=== PATIENT | female | born 1935 | race Caucasian/White ===

== ENCOUNTER 2023-09-28 19:58 | Inpatient (IN) | payer MEDICARE, SELFPAY ==
[2023-09-28 13:35] VITALS: BP 126/85
--- NOTE | 2023-09-28 14:10 | ED.GENMED ---
History of Present Illness
<Cristiano Lane Jr., PA-C - Last Filed: 09/29/23 15:53>
General
Chief Complaint: Fall
Source: patient, ambulance crew and care home
Exam Limitations: dementia
Time Seen by Provider: 09/28/23 13:53
Nursing documentation reviewed up to this point in time: agreed with
Travel History
Have you had any contact with someone who has COVID-19?: No
Do you have any symptoms of coronavirus? Fever > 100 degrees, chills, cough, shortness of breath, sore throat, loss of taste or smell, muscle aches, or headache?: No
History of Present Illness
History of Present Illness:
87-year-old female past medical history of dementia, CHF A-fib currently on Eliquis presenting to the emergency department today after a fall last night claims that she falls a lot she does not remember the fall specifically has pain mainly to her
low back and left rib. Has any chest pain shortness of breath nausea vomiting numbness weakness.
Review of Systems
<Cristiano Lane Jr., PA-C - Last Filed: 09/29/23 15:53>
Review of Systems
Allergies reviewed?: Yes
All Other Systems: ROS reviewed and negative except as documented in HPI and ROS
Phy Exam
<Cristiano Lane Jr., PA-C - Last Filed: 09/29/23 15:53>
Physical Exam
Physical Exam:
GENERAL: Alert , in no apparent distress
EYE: pupils equal and reactive
NECK: Supple, no significant adenopathy.
ENT: o/p clr, mmm.
CARDIAC: Tender to palpation to the left lateral ribs. Also some tenderness to the low back regular rate and rhythm .
LUNGS: Clear breath sounds bilaterally, no acute respiratory distress, no wheezes/rales/rhonchi
ABDOMEN: Soft, without focal tenderness, no r/g, no cvat
NEUROLOGICAL: Alert and oriented, no focal neuro deficits
SKIN: Warm and dry, skin intact.
MUSCULOSKELETAL: Tenderness of the low back no overlying skin changes no bruising no edema, well perfused.
PSYCH: Normal and appropriate interaction.
Course
<Cristiano Lane Jr., JACKI - Last Filed: 09/29/23 15:53>
Orders/Labs/Results
Orders:
Orders
09/28/23 14:03
CR Ribs-left 3 Vw W/pa Chest Urgent
Comment:
Reason For Exam: left rib pain after fall
Hip, Left 2-3 Views [CR Hip - LT w/wo Pel 2-3 Vw*] Urgent
Comment:
Reason For Exam: fall hip pelvis pain
Include a pelvis x-ray?: Yes
Lumbar Spine, 2 or 3 View [CR Lumbar Spine 2 Or 3 Views] Urgent
Comment:
Reason For Exam: low back christiano nafter fall
Sacrum/Coccyx 2 View CR [CR Sacrum/coccyx Min 2 View] Urgent
Comment:
Reason For Exam: back pain after fall
09/28/23 14:14
CT Head W/o Iv Contrast Urgent
Comment:
Reason For Exam: fall ystedaay
09/28/23 14:30
Acetaminophen [Tylenol] 650 mg PO NOW STA
09/28/23 15:18
BMP [Basic Metabolic Panel] Urgent
CBC/With Diff [Complete Blood Count/With Diff] Urgent
09/28/23 15:52
0.9% Sodium Chloride 250 ml [Nss] 250 ml IV BOLUS
09/28/23 15:53
Chest/Abd/Pelvis wo Contrast CT [CT Chest/abd/pel Wo Iv Cont] Urgent
Comment:
Reason For Exam: TRAUMA eval
09/28/23 16:08
Incentive Spirometry [Rx Incentive Spirometry] [RESP] Urgent
Frequency: q1h while awake
09/28/23 17:16
Urinalysis Reflex To Culture Urgent
Date Specimen was Collected: 09/28/23
Time Specimen was Collected: 17:01
Urine Microscopic Reflex Cult Urgent
Urine Culture Urgent
SAMANTHA Source: U
Specimen Description:
Date Specimen was Collected: 09/28/23
Time Specimen was Collected: 17:01
09/28/23 18:11
0.9% Sodium Chloride 500 ml [Nss] 500 ml IV BOLUS
09/28/23 19:22
Admit/Transfer Patient As Directed
Co-Sign Provider:
Level of Care: Inpatient admission
Assign to:: Medical/Surgical
Physician / Group: [facility]
Diagnosis: Rib Fracture, UTI
Reason for Hospitalization: IVFs, IV abx
Expected length of stay greater than two midnights?: Yes
ELOS- Estimated Length of Stay in days: 3
I certify the patient meets the requirements for IP care: Yes
09/28/23 19:24
Code Status As Directed
Resuscitation Status: Do not resuscitate
Reached after discussion with pt or family/Healthcare POA: Yes
DNR Bracelet Application ONCE
09/28/23 22:00
Famotidine [Pepcid] 20 mg PO Q48H
09/28/23 22:58
0.9% Sodium Chloride 500 ml [Nss] 500 ml IV 60 mls/hr
Acetaminophen [Tylenol] 1,000 mg PO TID
Doxepin [Sinequan] 25 mg PO HS
Oxycodone [Roxicodone] 2.5 mg PO Q4HPRN PRN
Oxycodone [Roxicodone] 5 mg PO Q4HPRN PRN
09/28/23 22:58
Echo 2D MMode Color/Doppler Routine
Reason for Study: cardiac murmur
Activity As Directed
Activity Level: Out of Bed-Early Mobility
With Assistance
I&O [Intake/ Output] As Directed
Frequency: q12h
Vital Signs As Directed
Frequency: Per unit guidelines
Weight As Directed
Frequency: Daily
Speech Therapy Eval & Treat Routine
09/28/23 23:00
Desipramine [Norpramin] 100 mg PO HS
09/28/23 23:15
Apixaban [Eliquis] 2.5 mg PO BID
09/29/23 00:00
Piperacillin/Tazo 2.25 Gram [Zosyn] 2.25 grams in 50 ml IV Q8H
09/29/23 Breakfast
IDDSI 5 - Minced & Moist
At Your Request: Non-Participating
Dysphagia Diet: Sodium, 2 Gram
Levothyroxine [Synthroid] 25 mcg PO DAILY @ 0600
09/29/23 07:10
Basic Metabolic Panel IN AM
Complete Blood Count/No Diff IN AM
09/29/23 08:00
Atorvastatin [Lipitor] 10 mg PO DAILY
Diltiazem Extended Release [Cardizem Cd] 120 mg PO DAILY
Lidocaine [Lidocaine 4% Patch] 1 patch TOPICAL DAILY
Memantine HCl [Namenda] 5 mg PO DAILY
09/29/23 12:00
Digoxin [Lanoxin] 125 mcg PO NOON
Abnormal Lab Results
09/28/23 09/28/23
15:18 17:16
WBC 13.4 H 10^3/uL
(4.8-10.8)
RDW 15.9 H %
(11.5-14.5)
MPV 11.3 H fL
(7.4-10.4)
Abs Immat Gran (auto) 0.1 H 10^3/uL
(0-0.05)
Absolute Neuts (auto) 10.5 H 10^3/uL
(1.4-6.5)
Absolute Monos (auto) 1.4 H 10^3/uL
(0.1-0.6)
Immature Gran % 0.6 H %
(0-0.5)
Neutrophils % 78.5 H %
(42.2-75.2)
Lymphocytes % 10.0 L %
(20.5-51.1)
Monocytes % 10.6 H %
(1.7-9.3)
BUN 51 H mg/dl
(7-17)
Creatinine 1.8 H mg/dL
(0.6-1.0)
Glucose 112 H mg/dl
(70-99)
Leukocyte Esterase Rfl Trace A
(Negative)
Urine WBC (Reflex) 16-20 A /HPF
(0-5)
Urine Bacteria (Reflex) Moderate A
(Negative)
09/28/23 15:18
09/28/23 15:18
Vital Signs
Initial and Last Documented VS:
Initial Vital Signs
Temp Pulse Resp BP Pulse Ox
98.2 F 88 18 126/85 98
09/28/23 13:35 09/28/23 13:35 09/28/23 13:35 09/28/23 13:35 09/28/23 13:35
Last Documented Vital Signs
Temp Pulse Resp BP Pulse Ox
98.7 F 48 18 152/72 97
09/29/23 07:20 09/29/23 12:48 09/29/23 07:20 09/29/23 07:20 09/29/23 07:20
<Hanna Blackmon, CHIEF CREW SCHEDULER - Last Filed: 09/28/23 20:07>
Orders/Labs/Results
Orders:
Orders
09/28/23 14:03
CR Ribs-left 3 Vw W/pa Chest Urgent
Comment:
Reason For Exam: left rib pain after fall
Hip, Left 2-3 Views [CR Hip - LT w/wo Pel 2-3 Vw*] Urgent
Comment:
Reason For Exam: fall hip pelvis pain
Include a pelvis x-ray?: Yes
Lumbar Spine, 2 or 3 View [CR Lumbar Spine 2 Or 3 Views] Urgent
Comment:
Reason For Exam: low back christiano nafter fall
Sacrum/Coccyx 2 View CR [CR Sacrum/coccyx Min 2 View] Urgent
Comment:
Reason For Exam: back pain after fall
09/28/23 14:14
CT Head W/o Iv Contrast Urgent
Comment:
Reason For Exam: fall ystedaay
09/28/23 14:30
Acetaminophen [Tylenol] 650 mg PO NOW STA
09/28/23 15:18
BMP [Basic Metabolic Panel] Urgent
CBC/With Diff [Complete Blood Count/With Diff] Urgent
09/28/23 15:52
0.9% Sodium Chloride 250 ml [Nss] 250 ml IV BOLUS
09/28/23 15:53
Chest/Abd/Pelvis wo Contrast CT [CT Chest/abd/pel Wo Iv Cont] Urgent
Comment:
Reason For Exam: TRAUMA eval
09/28/23 16:08
Incentive Spirometry [Rx Incentive Spirometry] [RESP] Urgent
Frequency: q1h while awake
09/28/23 17:16
Urinalysis Reflex To Culture Urgent
Date Specimen was Collected: 09/28/23
Time Specimen was Collected: 17:01
Urine Microscopic Reflex Cult Urgent
Urine Culture Urgent
SAMANTHA Source: U
Specimen Description:
Date Specimen was Collected: 09/28/23
Time Specimen was Collected: 17:01
09/28/23 18:11
0.9% Sodium Chloride 500 ml [Nss] 500 ml IV BOLUS
09/28/23 19:22
Admit/Transfer Patient As Directed
Co-Sign Provider:
Level of Care: Inpatient admission
Assign to:: Medical/Surgical
Physician / Group: Dese[facility]
Diagnosis: Rib Fracture, UTI
Reason for Hospitalization: IVFs, IV abx
Expected length of stay greater than two midnights?: Yes
ELOS- Estimated Length of Stay in days: 3
I certify the patient meets the requirements for IP care: Yes
09/28/23 19:24
Code Status As Directed
Resuscitation Status: Do not resuscitate
Reached after discussion with pt or family/Healthcare POA: Yes
DNR Bracelet Application ONCE
09/28/23 22:00
Famotidine [Pepcid] 20 mg PO Q48H
09/28/23 22:58
0.9% Sodium Chloride 500 ml [Nss] 500 ml IV 60 mls/hr
Acetaminophen [Tylenol] 1,000 mg PO TID
Doxepin [Sinequan] 25 mg PO HS
Oxycodone [Roxicodone] 2.5 mg PO Q4HPRN PRN
Oxycodone [Roxicodone] 5 mg PO Q4HPRN PRN
09/28/23 22:58
Echo 2D MMode Color/Doppler Routine
Reason for Study: cardiac murmur
Activity As Directed
Activity Level: Out of Bed-Early Mobility
With Assistance
I&O [Intake/ Output] As Directed
Frequency: q12h
Vital Signs As Directed
Frequency: Per unit guidelines
Weight As Directed
Frequency: Daily
Speech Therapy Eval & Treat Routine
09/28/23 23:00
Desipramine [Norpramin] 100 mg PO HS
09/28/23 23:15
Apixaban [Eliquis] 2.5 mg PO BID
09/29/23 00:00
Piperacillin/Tazo 2.25 Gram [Zosyn] 2.25 grams in 50 ml IV Q8H
09/29/23 Breakfast
IDDSI 5 - Minced & Moist
At Your Request: Non-Participating
Dysphagia Diet: Sodium, 2 Gram
Levothyroxine [Synthroid] 25 mcg PO DAILY @ 0600
09/29/23 07:10
Basic Metabolic Panel IN AM
Complete Blood Count/No Diff IN AM
09/29/23 08:00
Atorvastatin [Lipitor] 10 mg PO DAILY
Diltiazem Extended Release [Cardizem Cd] 120 mg PO DAILY
Lidocaine [Lidocaine 4% Patch] 1 patch TOPICAL DAILY
Memantine HCl [Namenda] 5 mg PO DAILY
09/29/23 12:00
Digoxin [Lanoxin] 125 mcg PO NOON
Abnormal Lab Results
09/28/23 09/28/23
15:18 17:16
WBC 13.4 H 10^3/uL
(4.8-10.8)
RDW 15.9 H %
(11.5-14.5)
MPV 11.3 H fL
(7.4-10.4)
Abs Immat Gran (auto) 0.1 H 10^3/uL
(0-0.05)
Absolute Neuts (auto) 10.5 H 10^3/uL
(1.4-6.5)
Absolute Monos (auto) 1.4 H 10^3/uL
(0.1-0.6)
Immature Gran % 0.6 H %
(0-0.5)
Neutrophils % 78.5 H %
(42.2-75.2)
Lymphocytes % 10.0 L %
(20.5-51.1)
Monocytes % 10.6 H %
(1.7-9.3)
BUN 51 H mg/dl
(7-17)
Creatinine 1.8 H mg/dL
(0.6-1.0)
Glucose 112 H mg/dl
(70-99)
Leukocyte Esterase Rfl Trace A
(Negative)
Urine WBC (Reflex) 16-20 A /HPF
(0-5)
Urine Bacteria (Reflex) Moderate A
(Negative)
09/28/23 15:18
09/28/23 15:18
Vital Signs
Initial and Last Documented VS:
Initial Vital Signs
Temp Pulse Resp BP Pulse Ox
98.2 F 88 18 126/85 98
09/28/23 13:35 09/28/23 13:35 09/28/23 13:35 09/28/23 13:35 09/28/23 13:35
Last Documented Vital Signs
Temp Pulse Resp BP Pulse Ox
98.7 F 48 18 152/72 97
09/29/23 07:20 09/29/23 12:48 09/29/23 07:20 09/29/23 07:20 09/29/23 07:20
<Cristiano Lane Jr., PA-C - Last Filed: 09/29/23 15:53>
MDM/Problems Addressed
MDM/Problems Addressed:
87-year-old female presenting to the emergency department after what sounds to be a ground-level fall yesterday though she has minimal memory of this. Discomfort mainly to the low back and buttock region. Additionally tenderness to the left
lateral lower ribs. X-rays ordered of the areas. She has been able to walk denies any head trauma no visible evidence of injury to the head or neck. No neck pain. Normal neurologic evaluation. Patient is on Eliquis poor historian CT scan
ordered of the head.
X-ray showing ninth and 10th rib fractures. Also age-indeterminate compression fracture lumbar spine. Concern the patient is on Eliquis and does have discomfort overlying the abdomen and some mild discomfort to the abdomen when palpating CT scan
was performed. Initial Noncon scan was performed concerning the patient's low GFR. Otherwise plan to admit for monitoring.
<Hanna Blackmon NP - Last Filed: 09/28/23 20:07>
MDM/Problems Addressed
MDM/Problems Addressed:
87-year-old female presenting to the emergency department after what sounds to be a ground-level fall yesterday though she has minimal memory of this. Discomfort mainly to the low back and buttock region. Additionally tenderness to the left
lateral lower ribs. X-rays ordered of the areas. She has been able to walk denies any head trauma no visible evidence of injury to the head or neck. No neck pain. Normal neurologic evaluation. Patient is on Eliquis poor historian CT scan
ordered of the head.
X-ray showing ninth and 10th rib fractures. Also age-indeterminate compression fracture lumbar spine. Concern the patient is on Eliquis and does have discomfort overlying the abdomen and some mild discomfort to the abdomen when palpating CT scan
was performed. Initial Noncon scan was performed concerning the patient's low GFR. Otherwise plan to admit for monitoring.
6:[address] confirming rib fx's. No other acute abnormality although limited with no contrast.
U/A WBC 16-20 many bacteria urine culture pending.
Hospitalist notified of admission.
DX: Fall, dehydration, acute kidney insufficiency, two rib fractures, UTI
<Hanna Blackmon NP - Last Filed: 09/28/23 20:07>
*Critical Care Note
Total Time (30-74mins, 75-104mins- exclusive of procedures): Not Applicable
ED Attending Note
<Cristiano Lane Jr., PA-C - Last Filed: 09/29/23 15:53>
-
Portions of this chart may have been created with voice recognition software.� Occasional wrong word or��sound alike� substitutions may have occurred due to the inherent limitations of voice recognition software.
Discharge Plan
Departure
Patient Disposition: Admit
Date of Disposition: 09/28/23
Time of Disposition: 18:08
Presentation/result/management discussed w/ accepting MD/DO: Hospitalist
Condition: Fair
Discharge Problem:
Fall, Acute UTI, Acute dehydration, Acute renal insufficiency, Fracture of ribs, two
Interventions
Interventions:
*Risk Screen - Suicide Last Done: 09/28/23 14:59
*General Assessment Last Done: 09/28/23 19:10
*Neglect/Abuse Screening Last Done: 09/28/23 14:59
ED- Fall Risk Assessment Last Done: 09/28/23 15:29
*ED COVID-19 Vaccine History Last Done: 09/28/23 19:10
*Nursing Disposition Last Done: 09/28/23 21:55
ED-Musculoskeletal Assessment Last Done: 09/28/23 15:29
ED- Neurological Assessment Last Done: 09/28/23 14:59
ED-Skin Assessment Last Done: 09/28/23 14:59
Discharge Date and Time
Discharge Date/Time: 09/28/23 21:55
[2023-09-28] MEDS: TYLENOL 650 MG PO (14:55)
[2023-09-28 15:25] LABS: % Basophils 0.3 % (0-2); % Immature Granulocytes 0.6 % (0-0.5); % Monocytes 10.6 % (1.7-9.3); % Neutrophils 78.5 % (42.2-75.2); Absolute Immature Granulocytes 0.1 10^3/uL (0-0.05); Absolute Lymphocytes 1.3 10^3/uL (1.2-3.4); Absolute Monocytes 1.4 10^3/uL (0.1-0.6); Absolute Neutrophils 10.5 10^3/uL (1.4-6.5); Hematocrit 38.8 % (37.0-47.0); Hemoglobin 12.8 g/dL (12.0-16.0); Mean Corpuscular Hgb 29.8 pg (27.0-31.0); Mean Corpuscular Volume 90.4 fL (81.0-99.0); Mean Platelet Volume 11.3 fL (7.4-10.4); Nucleated Red Blood Cells % 0 %; Platelet Count 216 10^3/uL (130-400); Red Blood Cell Count 4.29 10^6/uL (4.20-5.40); Red Cell Dist. Width 15.9 % (11.5-14.5); White Blood Cell Count 13.4 10^3/uL (4.8-10.8)
[2023-09-28 15:47] LABS: Blood Urea Nitrogen 51 mg/dl (7-17); Calcium 8.5 mg/dl (8.4-10.2); Carbon Dioxide 23 mmol/L (22-30); Chloride 105 mmol/L (98-107); Glucose 112 mg/dl (70-99); Sodium 136 mmol/L (135-145)
[2023-09-28 17:25] LABS: Urine Albumin Negative (Neg - Trace); Urine Bilirubin Negative (Negative); Urine Character Clear (Clear); Urine Color Yellow; Urine Glucose Negative (Negative); Urine Ketone Negative (Negative); Urine Leukocyte Trace (Negative); Urine Nitrite Negative (Negative); Urine Occult Blood Negative (Negative); Urine Urobilinogen Negative (Neg - 1+)
[2023-09-28 18:03] LABS: Urine Bacteria Moderate (Negative); Urine Squamous Cell 26-30 /LPF (Few); Urine White Cell 16-20 /HPF (0-5)
[2023-09-28] MEDS: NSS 500 IV ×2 (18:14→23:57)
--- NOTE | 2023-09-28 19:15 | W.PN.UPDATE ---
Update Note
Progress Note Update
This is an addendum to the H&P written PA Laura Gaines on 09/28/2023.
87-year-old female past medical history of dementia, CHF, atrial fibrillation on Eliquis presenting after a fall last night. She does not have memory of the fall. She complains of pain in her lower back and left rib. She has some shortness of
breath. She is complaining of abdominal pain and nausea. Denies any urinary symptoms or diarrhea.
Patient is AAOx1. Likely baseline mental status. Labs show leukocytosis, BARB with creatinine 1.8, pyuria. CT chest and abdomen pelvis shows displaced left posterior 10th rib and 11th rib fractures. There is left lower lobe consolidation small
left pleural effusion.
Pain control for rib fracture. Gentle IV fluids for BARB. Leukocytosis could be due to UTI and or aspiration pneumonia. Await urine culture. Zosyn. Check speech and swallow evaluation.
--- NOTE | 2023-09-28 19:30 | HPS.HSE ---
Family Physician
-
Family Physician: Zack Palomo, DO
Chief Complaint
-
Left flank/side pain
History of Present Illness
Patient is an 87 y/o female past medical history of dementia, heart failure and atrial fibrillation who presents with left flank/side pain following a fall. Patient is unable to provide any additional history due to her dementia. She is unaware of
why she was sent to the emergency department. Work-up in the emergency department revealed two left rib fractures. Patient dose complain of left rib pain when taking a deep breath.
Medical History
Past Medical History
Past Medical History: Reports Other
Additional Past Medical History:
Chronic Heart Failure
Paroxysmal Atrial Fibrillation
Hyperlipidemia
Dysphagia
Dementia
Anxiety/Depression
Hypothyroidism
GERD
Past Surgical History: Reports Other (Unknown)
Social History
Unable to obtain full social history at this time due to: Dementia
Family History
Family History: Unable to Obtain
Allergies / Home Medications
Allergies reflects when Allergies were last updated in [employer].
Home Medications with original date entered in [employer]
Allergy/Medication List:
Allergies
Allergy/AdvReac Type Severity Reaction Status Date / Time
aspirin Allergy Unknown Verified 09/28/23 13:38
codeine Allergy Unknown Verified 09/28/23 13:38
metronidazole Allergy Unknown Verified 09/28/23 13:38
sulfasalazine Allergy Unknown Verified 09/28/23 13:38
Home Medications
acetaminophen 325 mg tablet 650 mg PO Q6H PRN mild/fever 09/28/23
apixaban 5 mg tablet 5 mg PO BID 09/28/23
atorvastatin 10 mg tablet 10 mg PO DAILY 09/28/23
bisacodyl 10 mg rectal suppository 10 mg KS DAILY PRN constipation 09/28/23
desipramine 100 mg tablet 100 mg PO HS 09/28/23
digoxin 125 mcg (0.125 mg) tablet 125 mcg PO DAILY 09/28/23
diltiazem HCl 120 mg tablet,extended release 24 hr 120 mg PO DAILY 09/28/23
doxepin 25 mg capsule 25 mg PO HS 09/28/23
famotidine 20 mg tablet 20 mg PO BID 09/28/23
furosemide 40 mg tablet 40 mg PO BID 09/28/23
levothyroxine 25 mcg tablet 25 mcg PO DAILY 09/28/23
magnesium hydroxide 400 mg/5 mL oral suspension (Milk of Magnesia) 30 ml PO DAILY PRN consitiptation 09/28/23
memantine 5 mg tablet 5 mg PO DAILY 09/28/23
potassium chloride 15 mEq tablet,extended release(part/cryst) 15 meq PO DAILY 09/28/23
potassium chloride 20 mEq tablet,extended release(part/cryst) 20 meq PO DAILY 09/28/23
sodium phosphates 19 gram-7 gram/118 mL enema (Fleet Enema) 118 ml KS DAILYPRN PRN constipation 09/28/23
Review of Systems
-
Unable to obtain full review of systems at this time due to: Dementia
Physical Exam
Vital Signs
Vital Signs
Temp Pulse Resp BP Pulse Ox
98.2 F 88 18 126/85 98
09/28/23 13:35 09/28/23 13:35 09/28/23 13:35 09/28/23 13:35 09/28/23 13:35
Physical Exam
General: Comfortable and Conversant
HEENT: NormoCephalic, Anicteric and Atraumatic
Respiratory: Clear and Non Labored Respirations
Cardiac: S1/S2, Regular Rhythm and Murmur (3/6 systolic murmur heard at right upper sternal border)
GI: Soft and Non Tender
Musculoskeletal: No Clubbing and No Cyanosis
Skin: Warm and Dry
Neuro: Awake, Alert and Nonfocal/grossly intact; No Oriented (Patient unable to tell me where she is, or the correct year)
Laboratory Results
-
09/28/23 15:18
09/28/23 15:18
Data Reviewed
-
Diagnostic Radiology: Report Reviewed by me
CT Scan: Report Reviewed by me
Lab Data: Labs Reviewed by me
Impression/Plan
-
Left Rib Fractures
-Add Lidocaine Patch
-Continue Tylenol 1000mg TID
-Add oxycodone prn for moderate/severe pain
Leukocytosis, possible aspiration pneumonia vs UTI
-Await urine culture
-Continue Zosyn
Elevated Creatinine, unknown baseline
-Hold Lasix
-Give small amount of IVFs overnight
-Recheck creatinine in AM
Dysphagia
-Consult Speech
-Continue Minced/Moist Diet with thin liquids per [place] paperwork
Chronic Heart Failure, unknown type
-Patient with cardiac murmur on exam, suspect aortic stenosis
-Check Echo
-Lasix on hold
-Monitor Is&Os and Daily Weights
Paroxysmal Atrial Fibrillation
-Continue apixaban at decreased dose based on renal function
-Continue digoxin and diltiazem
Hyperlipidemia
-Continue atorvastatin
Dementia
-Monitor for mood/behavior changes during hospitalization
-Continue memantine
Anxiety/Depression
-Continue desipramine and doxepin
Hypothyroidism
-Continue levothyroxine
GERD
-Continue famotidine
DVT proph: Eliquis
Code Status: DNR/DNI per [facility] paperwork
[2023-09-28 20:03] VITALS: BP 135/88
[2023-09-28 22:05] VITALS: BP 151/80
--- NOTE | 2023-09-28 22:15 | PTCARENOTE ---
Patient arrived from ED via stretcher, pulled to bed from stretcher with assist of 2 person. Patient confused, hx dementia - unable to provide admission information, history, etc. Patient with difficulty stating her own birthday. Bed alarm placed
and maintained. IVFs initiated, IV abx maintained per MD orders. Patient remains confused and appears to be anxious at times - yelling out frequently following admission. Call ellis within reach. Will continue to monitor.
[2023-09-28 23:00] VITALS: BP 143/70
[2023-09-28] MEDS: FLUSH (NSS) 1 FLUSH IV (23:58)
[2023-09-28] MEDS: NORPRAMIN 100 MG PO (23:58)
[2023-09-28] MEDS: SINEQUAN 25 MG PO (23:58)
[2023-09-28] MEDS: TYLENOL 1000 MG PO (23:58)
[2023-09-28] MEDS: ELIQUIS 2.5 MG PO (23:58)
[2023-09-28] MEDS: PEPCID 20 MG PO (23:58)
[2023-09-29] MEDS: ZOSYN 50 IV ×4 (00:50→23:01)
[2023-09-29] MEDS: SYNTHROID 25 MCG PO (05:04)
[2023-09-29 06:00] VITALS: BMI 28.2
--- NOTE | 2023-09-29 06:45 | PTCARENOTE ---
Patient unable to void throughout shift, c/o pain and discomfort. Bladder distended and firm. Bladder scanned for 1003mls urine, patient encouraged to void and only able to void drops. Bladder scanned again for PVR, still showing 1003mls of urine.
KEEGAN Carbajal notified, orders placed for bladder scan/straight cath and patient straight cathed for 950mls urine. Per MIXED ANIMAL VETERINARIAN -- will place mullen catheter if patient has multiple episodes of retaining. Patient verbalizes relief, abdomen soft to
palpation at this time. Call ellis within reach, will monitor.
[2023-09-29 07:20] VITALS: BP 152/72
[2023-09-29 07:46] LABS: Hematocrit 38.5 % (37.0-47.0); Hemoglobin 12.8 g/dL (12.0-16.0); Mean Corp Hgb Conc. 33.2 g/dL (33.0-37.0); Mean Corpuscular Volume 90.2 fL (81.0-99.0); Mean Platelet Volume 11.6 fL (7.4-10.4); Platelet Count 202 10^3/uL (130-400); Red Blood Cell Count 4.27 10^6/uL (4.20-5.40); Red Cell Dist. Width 15.9 % (11.5-14.5); White Blood Cell Count 10.9 10^3/uL (4.8-10.8)
[2023-09-29 08:34] LABS: Blood Urea Nitrogen 39 mg/dl (7-17); Calcium 8.5 mg/dl (8.4-10.2); Carbon Dioxide 25 mmol/L (22-30); Chloride 107 mmol/L (98-107); Estimated Creatinine Clearance 23 ml/min; Glucose 93 mg/dl (70-99); Potassium 3.5 mmol/L (3.5-5.1); Sodium 140 mmol/L (135-145); eGFR 36.64
[2023-09-29] MEDS: CARDIZEM CD 120 MG PO (08:37)
[2023-09-29] MEDS: LIPITOR 10 MG PO (08:37)
[2023-09-29] MEDS: ELIQUIS 2.5 MG PO ×2 (08:38→21:22)
[2023-09-29] MEDS: TYLENOL 1000 MG PO ×3 (08:38→21:22)
[2023-09-29] MEDS: LIDOCAINE 4% PATCH 1 PATCH TOPICAL (08:38)
[2023-09-29] MEDS: NAMENDA 5 MG PO (08:38)
[2023-09-29 10:45] VITALS: BP 120/53; BP 124/70; PULSE 69; O2SAT 95
--- NOTE | 2023-09-29 12:26 | PTOTSP ---
Speech Language Pathology
87F with PMH significant for dementia, CHF, dysphagia, hypothyroidism, and GERD admitted for left rib fx s/p fall and possible UTI. CT chest concerning for possible aspiration. Presents this date with a grossly functional oropharyngeal swallow.
Cannot r/o silent aspiration at bedside. Recommend modified diet w/ PACKAGING MECHANIC service to follow up.
Recommend:
1. Soft and bite sized (IDDSI 6), thin liquid (IDDSI 0)
2. Medications as tolerated
3. Strategies: PARTIAL supervision, upright during meals, upright after meals for 30 minutes, only feed when awake and alert, ensure clearance of oral cavity post-PO
4. Video swallow study premature at this time; consider if s/s of aspiration persist
5. PACKAGING MECHANIC service will f/u to assess diet level tolerance and provide dysphagia treatment as needed.
--- NOTE | 2023-09-29 12:42 | W.PN.HOSP.TC ---
Today's Communication/Plan
-
cont abx
f/u cultures
pt/ot
holding lasix, gentle hydration - monitor Scr
Assessment / Plan
Assessment / Plan
Physical Exam
General: Comfortable and Conversant
HEENT: NormoCephalic, Anicteric and Atraumatic
Respiratory: Clear and Non Labored Respirations
Cardiac: S1/S2, Regular Rhythm and Murmur (3/6 systolic murmur heard at right upper sternal border)
GI: Soft and Non Tender
Musculoskeletal: No Clubbing and No Cyanosis
Skin: Warm and Dry
Neuro: Awake, Alert and Nonfocal/grossly intact; No Oriented (Patient unable to tell me where she is, or the correct year)
Left Rib Fractures
-Add Lidocaine Patch
-Continue Tylenol 1000mg TID
-Add oxycodone prn for moderate/severe pain
Leukocytosis, possible aspiration pneumonia + UTI
-Await urine culture
-Continue Zosyn
#Ambulatory Dysfunction
-PT/OT
-prob exacerbated by infection, ?UTI
Elevated Creatinine, unknown baseline
-Hold Lasix
-Give small amount of IVFs overnight
-Recheck creatinine in AM
Dysphagia
-Consult Speech
-IDDSI 6
Chronic Heart Failure, unknown type
-Patient with cardiac murmur on exam, suspect aortic stenosis
-Check Echo
-Lasix on hold for BARB - monitor to resume daily
-Monitor Is&Os and Daily Weights
Paroxysmal Atrial Fibrillation
-Continue apixaban at decreased dose based on renal function
-Continue digoxin and diltiazem
Hyperlipidemia
-Continue atorvastatin
Dementia
-Monitor for mood/behavior changes during hospitalization
-Continue memantine
Anxiety/Depression
-Continue desipramine and doxepin
Hypothyroidism
-Continue levothyroxine
GERD
-Continue famotidine
DVT proph: Eliquis
Code Status: DNR/DNI per [facility] paperwork
Anticipated Discharge: 24 - 48 hours
Subjective/Interval History
-
Date of Service: September 29, 2023
no acute events
Objective Data
-
Labs:
Laboratory Results
09/29/23
07:10
WBC 10.9 H
Hgb 12.8
Hct 38.5
Plt Count 202
Sodium 140
Potassium 3.5
Chloride 107
Carbon Dioxide 25
BUN 39 H
Creatinine 1.4 H
Glucose 93
Calcium 8.5
Vital Signs:
Vital Signs
Temp Pulse Resp BP Pulse Ox
98.7 F 72 18 152/72 97
09/29/23 07:20 09/29/23 07:20 09/29/23 07:20 09/29/23 07:20 09/29/23 07:20
I&O
09/28/23 09/29/23 09/30/23
06:59 06:59 06:59
Intake Total 570 / 570
Output Total 950 / 950
Balance -950 / -380 570 / 570
Review of Systems
-
History Source: Patient
All other systems: Not reviewed unless documented
Data Reviewed
-
Diagnostic Radiology: Image personally visualized and interpreted and Report Reviewed by me
CT Scan: Image personally visualized and interpreted and Report Reviewed by me
Labs: Labs Reviewed by me
[2023-09-29] MEDS: LANOXIN PO (12:48)
[2023-09-29] MEDS: LR 1000 IV (13:40)
[2023-09-29] MEDS: ROXICODONE 5 MG PO (15:53)
[2023-09-29] MEDS: SINEQUAN 25 MG PO (21:21)
[2023-09-29] MEDS: NORPRAMIN 100 MG PO (21:21)
[2023-09-29 23:05] VITALS: BP 111/63
--- NOTE | 2023-09-30 05:04 | W.PN.UPDATE ---
Update Note
Progress Note Update
RN notified ADVERTISING CONSULTANT, patient hasn't been voiding, BS> 400, straight cath done two times in 24hours, will order Matos cath.
[2023-09-30 05:27] LABS: Hematocrit 37.2 % (37.0-47.0); Hemoglobin 12.1 g/dL (12.0-16.0); Mean Corp Hgb Conc. 32.5 g/dL (33.0-37.0); Mean Corpuscular Hgb 29.8 pg (27.0-31.0); Mean Corpuscular Volume 91.6 fL (81.0-99.0); Mean Platelet Volume 11.8 fL (7.4-10.4); Platelet Count 190 10^3/uL (130-400); Red Blood Cell Count 4.06 10^6/uL (4.20-5.40); White Blood Cell Count 9.6 10^3/uL (4.8-10.8)
[2023-09-30] MEDS: SYNTHROID 25 MCG PO (05:29)
[2023-09-30 05:51] LABS: Blood Urea Nitrogen 32 mg/dl (7-17); Calcium 8.4 mg/dl (8.4-10.2); Carbon Dioxide 27 mmol/L (22-30); Chloride 106 mmol/L (98-107); Estimated Creatinine Clearance 27 ml/min; Glucose 87 mg/dl (70-99); Potassium 3.6 mmol/L (3.5-5.1); Sodium 139 mmol/L (135-145); eGFR 44.08
[2023-09-30 06:00] VITALS: BMI 28.9
[2023-09-30 07:15] VITALS: BP 136/57
[2023-09-30] MEDS: TYLENOL 1000 MG PO ×3 (08:19→20:55)
[2023-09-30] MEDS: CARDIZEM CD PO (08:19)
[2023-09-30] MEDS: LIDOCAINE 4% PATCH 1 PATCH TOPICAL (08:20)
[2023-09-30] MEDS: ELIQUIS 2.5 MG PO ×2 (08:20→20:52)
[2023-09-30] MEDS: NAMENDA 5 MG PO (08:20)
[2023-09-30] MEDS: ZOSYN 50 IV ×3 (08:21→20:53)
[2023-09-30] MEDS: LIPITOR 10 MG PO (08:21)
[2023-09-30] MEDS: ROXICODONE 5 MG PO (08:50)
[2023-09-30] MEDS: LR 1000 IV (08:51)
[2023-09-30] MEDS: LANOXIN PO (11:57)
--- NOTE | 2023-09-30 12:00 | W.PN.HOSP.TC ---
Addendum entered and electronically signed by Timmy Burr MD 09/30/23 12:11:
#Urinary Retention
-Matos placed
Original Note:
Today's Communication/Plan
-
await urine cultures
cont abx
holding lasix again, monitor scr
Assessment / Plan
Assessment / Plan
Physical Exam
General: Comfortable and Conversant
HEENT: NormoCephalic, Anicteric and Atraumatic
Respiratory: Clear and Non Labored Respirations
Cardiac: S1/S2, Regular Rhythm and Murmur (3/6 systolic murmur heard at right upper sternal border)
GI: Soft and Non Tender
Musculoskeletal: No Clubbing and No Cyanosis
Skin: Warm and Dry
Neuro: Awake, Alert and Nonfocal/grossly intact; No Oriented (Patient unable to tell me where she is, or the correct year)
Left Rib Fractures
-Add Lidocaine Patch
-Continue Tylenol 1000mg TID
-Add oxycodone prn for moderate/severe pain
Leukocytosis, possible aspiration pneumonia + UTI
-Await urine culture - GNB
-Continue Zosyn
#Ambulatory Dysfunction
-PT/OT - Skilled rehab
-prob exacerbated by infection, UTI
Elevated Creatinine, unknown baseline
-Hold Lasix
-Give small amount of IVFs overnight
-Recheck creatinine in AM
Dysphagia
-Consult Speech
-IDDSI 6
Chronic Heart Failure, unknown type
-Patient with cardiac murmur on exam, suspect aortic stenosis
-Check Echo
-Lasix on hold for BARB - monitor to resume daily
-Monitor Is&Os and Daily Weights
Paroxysmal Atrial Fibrillation
-Continue apixaban at decreased dose based on renal function
-Continue digoxin and diltiazem
Hyperlipidemia
-Continue atorvastatin
Dementia
-Monitor for mood/behavior changes during hospitalization
-Continue memantine
Anxiety/Depression
-Continue desipramine and doxepin
Hypothyroidism
-Continue levothyroxine
GERD
-Continue famotidine
DVT proph: Eliquis
Code Status: DNR/DNI per [place] paperwork
Anticipated Discharge: Within 24 hours
Subjective/Interval History
-
Date of Service: September 30, 2023
No acute events
Objective Data
-
Labs:
Laboratory Results
09/30/23
04:30
WBC 9.6
Hgb 12.1
Hct 37.2
Plt Count 190
Sodium 139
Potassium 3.6
Chloride 106
Carbon Dioxide 27
BUN 32 H
Creatinine 1.2 H
Glucose 87
Calcium 8.4
Vital Signs:
Vital Signs
Temp Pulse Resp BP Pulse Ox
98.2 F 50 18 136/57 95
09/30/23 07:15 09/30/23 11:57 09/30/23 07:15 09/30/23 07:15 09/30/23 07:15
I&O
09/29/23 09/30/23 10/01/23
06:59 06:59 06:59
Intake Total 1050 / 1050
Output Total 950 / 950 1025 / 1025
Balance -950 / -380
Review of Systems
-
History Source: Patient
All other systems: Not reviewed unless documented
Data Reviewed
-
Diagnostic Radiology: Image personally visualized and interpreted and Report Reviewed by me
CT Scan: Image personally visualized and interpreted and Report Reviewed by me
Labs: Labs Reviewed by me
[2023-09-30] MEDS: SINEQUAN 25 MG PO (20:52)
[2023-09-30] MEDS: PEPCID 20 MG PO (20:52)
[2023-09-30] MEDS: NORPRAMIN 100 MG PO (20:54)
[2023-09-30 23:00] VITALS: BP 113/48
[2023-10-01] MEDS: ZOSYN 50 IV ×4 (02:32→20:47)
[2023-10-01] MEDS: SYNTHROID 25 MCG PO (05:50)
[2023-10-01 06:00] VITALS: BMI 29.0
[2023-10-01 06:58] LABS: Hematocrit 33.2 % (37.0-47.0); Hemoglobin 11.2 g/dL (12.0-16.0); Mean Corp Hgb Conc. 33.7 g/dL (33.0-37.0); Mean Corpuscular Hgb 29.8 pg (27.0-31.0); Mean Corpuscular Volume 88.3 fL (81.0-99.0); Mean Platelet Volume 11.4 fL (7.4-10.4); Platelet Count 206 10^3/uL (130-400); Red Blood Cell Count 3.76 10^6/uL (4.20-5.40); Red Cell Dist. Width 15.8 % (11.5-14.5); White Blood Cell Count 9.2 10^3/uL (4.8-10.8)
[2023-10-01 07:00] VITALS: BP 144/63
[2023-10-01 07:14] LABS: Blood Urea Nitrogen 28 mg/dl (7-17); Calcium 8.4 mg/dl (8.4-10.2); Carbon Dioxide 24 mmol/L (22-30); Chloride 105 mmol/L (98-107); Estimated Creatinine Clearance 30 ml/min; Glucose 87 mg/dl (70-99); Potassium 3.4 mmol/L (3.5-5.1); Sodium 136 mmol/L (135-145); eGFR 48.94
[2023-10-01] MEDS: ELIQUIS 2.5 MG PO ×2 (07:49→20:46)
[2023-10-01] MEDS: CARDIZEM CD 120 MG PO (07:49)
[2023-10-01] MEDS: LIDOCAINE 4% PATCH 1 PATCH TOPICAL (07:49)
[2023-10-01] MEDS: LIPITOR 10 MG PO (07:49)
[2023-10-01] MEDS: TYLENOL 1000 MG PO ×3 (07:49→22:56)
[2023-10-01] MEDS: NAMENDA 5 MG PO (07:59)
--- NOTE | 2023-10-01 08:19 | W.PN.HOSP.TC ---
Addendum entered and electronically signed by Timmy Burr MD 10/01/23 12:35:
I saw and examined the patient.
The Residents note was reviewed and I agree with the note.
Comment:
ESBL UTI - ID consulted
Reduce Opiates, TOV tomorrow
Monitor Renal function, holding lasix today again
ECHO
Physical Exam
General: Comfortable and Conversant
HEENT: NormoCephalic, Anicteric and Atraumatic
Respiratory: Clear and Non Labored Respirations
Cardiac: S1/S2, Regular Rhythm and Murmur (3/6 systolic murmur heard at right upper sternal border)
GI: Soft and Non Tender
Musculoskeletal: No Clubbing and No Cyanosis
Skin: Warm and Dry
Neuro: Awake, Alert and Nonfocal/grossly intact; No Oriented (Patient unable to tell me where she is, or the correct year)
Left Rib Fractures
-Add Lidocaine Patch
-Continue Tylenol 1000mg TID
-Reduce opiate dosing due to urinary retention
Leukocytosis, possible aspiration pneumonia + ESBL UTI
-Continue Zosyn
-ID consulted
#Ambulatory Dysfunction
-PT/OT - Skilled rehab
-prob exacerbated by infection, UTI
#Urinary Retention
-reduce opiates
-TOV tomorrow
BARB, unknown baseline
-Hold Lasix
-s/p fluids
-Recheck creatinine in AM
Dysphagia
-Consult Speech
-IDDSI
Chronic Heart Failure, unknown type
-Patient with cardiac murmur on exam, suspect aortic stenosis
-Check Echo
-Lasix on hold for BARB - monitor to resume daily
-Monitor Is&Os and Daily Weights
Paroxysmal Atrial Fibrillation
-Continue apixaban at decreased dose based on renal function
-Continue digoxin and diltiazem
Hyperlipidemia
-Continue atorvastatin
Dementia
-Monitor for mood/behavior changes during hospitalization
-Continue memantine
Anxiety/Depression
-Continue desipramine and doxepin
Hypothyroidism
-Continue levothyroxine
Hypokalemia
� Monitor and replete
GERD
-Continue famotidine
DVT proph: Eliquis
Code Status: DNR/DNI per [place] paperwork
Original Note:
Today's Communication/Plan
-
Pending cultures,
Continue IV Zosyn,
Continue optimal pain management,
Monitor I's and O's.
Consider voiding trial today
Assessment / Plan
Assessment / Plan
Assessment-
Aydee 87-year-old female with significant dementia presented to the hospital s/p mechanical fall-diagnosed with left rib fractures.
Plan-
Left rib fractures-10th and 11th displaced
Currently on lidocaine patch and Tylenol 3 times daily.
On oxycodone as needed for moderate to severe pain
Urinary retention-
Patient straight cathed twice for PVR> 400.
Currently on Matos catheter.
Voiding trial today.
Leukocytosis -resolved.
Secondary to possible aspiration pneumonia + UTI
Await urine culture - GNB
Continue Zosyn, pending culture sensitivities
Ambulatory Dysfunction
PT/OT - Skilled rehab
prob exacerbated by infection, UTI
BARB-
elevated Creatinine upon admission unknown baseline
Lasix on hold.
IV fluids discontinued. Serum creatinine improved to 1.1
Trend renal function.
Chronic Heart Failure, unknown type
Patient with cardiac murmur on exam, suspect aortic stenosis
No echo cardiogram.
Lasix on hold for BARB - monitor to resume daily
Monitor Is&Os and Daily Weights
Paroxysmal Atrial Fibrillation
Continue apixaban at decreased dose based on renal function
Continue digoxin and diltiazem for rate and rhythm control.
Dysphagia
IDDSI 6 diet.
Hyperlipidemia
Continue atorvastatin
Dementia
Monitor for mood/behavior changes during hospitalization
Continue memantine
Anxiety/Depression
Continue desipramine and doxepin
Hypothyroidism
Continue levothyroxine
GERD
Continue famotidine
DVT proph: Eliquis
Code Status: DNR/DNI per [place] paperwork
Anticipated Discharge: 24 - 48 hours
Subjective/Interval History
-
Date of Service: October 01, 2023
No complaints overnight.
Objective Data
-
Labs:
Laboratory Results
10/01/23
06:09
WBC 9.2
Hgb 11.2 L
Hct 33.2 L
Plt Count 206
Sodium 136
Potassium 3.4 L
Chloride 105
Carbon Dioxide 24
BUN 28 H
Creatinine 1.1 H
Glucose 87
Calcium 8.4
Vital Signs:
Vital Signs
Temp Pulse Resp BP Pulse Ox
97.7 F 68 18 144/63 96
10/01/23 07:00 10/01/23 07:00 10/01/23 07:00 10/01/23 07:00 10/01/23 07:00
I&O
09/30/23 10/01/23 10/02/23
06:59 06:59 06:59
Intake Total 1050 / 1050 960 / 960
Output Total 1025 / 1025 750 / 750
Balance 25 / 25 210 / 210
Review of Systems
-
Unable to obtain full review of systems at this time due to: Dementia
Physical Exam
-
General: Comfortable (On room air.)
HEENT: Normocephalic, Atraumatic, Moist Mucous Membranes and PERRLA
Cardiac: Regular Rhythm, S1/S2 and Murmur (Diastolic murmur predominantly heard in the mitral area.)
GI: Soft, Nontender and Nondistended
Genito-urinary: No Costovertebral Tender and Other (Matos's catheter placed.)
Musculoskeletal: No Clubbing, No Cyanosis and No Edema
Neuro: Awake, Alert and Other (Demented. Does not remember please time or person.)
Psych: Apparent Dementia
[2023-10-01] MEDS: KCL ELIXIR 40 MEQ PO (09:49)
[2023-10-01] MEDS: LANOXIN 125 MCG PO (11:15)
--- NOTE | 2023-10-01 12:26 | CON.ID ---
Consultation
-
Date/Time Consultation Requested: October 01, 2023 1145
Date/Time Consultation Performed: October 01, 2023 1230
Requesting Provider: Dr. Timmy Burr
Performing Provider: Dr. Lupe Shoemaker
Reason for Consultation: ESBL UTI
Chief Complaint / Past History
Chief Complaint
Left side pain
History of Present Illness
87-year-old female with dementia, paroxysmal atrial fibrillation, chronic heart failure who sustained a fall and complaining of left-sided pain. She was sent to the hospital on September 27. Imaging showed left rib fracture with left lower lobe
consolidation/effusion possible aspiration. Has lumbar vertebral fracture of uncertain age. No fever. Had 1 episode elevated white count resolved quickly. In the hospital patient noted to have urinary retention of 400 cc and a Matos was placed.
The admission urine culture came back as ESBL Klebsiella. Patient reports her pain is getting better. She denies cough or shortness of breath. No dysuria or urinary urgency. She denies abdominal pain or diarrhea. Appetite is poor.
Past History
Additional Past Medical History:
Chronic Heart Failure
Paroxysmal Atrial Fibrillation
Hyperlipidemia
Dysphagia
Dementia
Anxiety/Depression
Hypothyroidism
GERD
Allergy History:
aspirin Allergy (Verified 09/28/23 13:38)
Unknown
codeine Allergy (Verified 09/28/23 13:38)
Unknown
metronidazole Allergy (Verified 09/28/23 13:38)
Unknown
sulfasalazine Allergy (Verified 09/28/23 13:38)
Unknown
Medications Reviewed: Yes
Current Antibiotics:
Zosyn day 3
Social History
Tobacco: Non-Smoker
Alcohol: None
Drug: None
Family History
Family History: Not Pertinent
Review of Systems
Review of Systems
General: Change in Appetite; Negative Fever or Chills
HEENT: Negative Sinus Problems, Headache or Pharyngitis
Cardiovascular: Negative Chest Pain or Dyspnea
Respiratory: Negative Dyspnea or Cough
Gasteroenterology: Negative Nausea or Vomiting
Genital / Urological: Negative Dysuria or Flank Pain
Vital Signs
Temp Pulse Resp BP Pulse Ox
97.7 F 66 18 144/63 96
10/01/23 07:00 10/01/23 11:15 10/01/23 07:00 10/01/23 07:00 10/01/23 07:00
Physical Exam
Physical Exam
Constitutional: No Acute Distress
Eyes: No Conjunctival Hemorrhage and Sclera Anicteric
Cardiovascular: Regular Rate and S1/S2
Pulmonary: Other (Decreased BS left base)
Gastrointestinal: Soft, Non Tender and Non Distended
Genito-Urinary: Matos and Clear Urine; Negative Suprapubic Tenderness or CVA Tenderness
Extremities: Negative Edema
Neurological: Awake and Alert
Lab / Diagnostic Study Results
10/01/23 06:09
10/01/23 06:09
Abs Immat Gran (auto) 0.1 10^3/uL (0-0.05) H 09/28/23 15:18
Absolute Neuts (auto) 10.5 10^3/uL (1.4-6.5) H 09/28/23 15:18
Absolute Lymphs (auto) 1.3 10^3/uL (1.2-3.4) 09/28/23 15:18
Absolute Monos (auto) 1.4 10^3/uL (0.1-0.6) H 09/28/23 15:18
Absolute Basos (auto) 0.0 10^3/uL (0-0.2) 09/28/23 15:18
Immature Gran % 0.6 % (0-0.5) H 09/28/23 15:18
Neutrophils % 78.5 % (42.2-75.2) H 09/28/23 15:18
Lymphocytes % 10.0 % (20.5-51.1) L 09/28/23 15:18
Monocytes % 10.6 % (1.7-9.3) H 09/28/23 15:18
Eosinophils % 0.0 % (0-6) 09/28/23 15:18
Basophils % 0.3 % (0-2) 09/28/23 15:18
Ur Squamous Epith Cells 26-30 /LPF (Few) 09/28/23 17:16
Microbiology Results
Micro:
09/28/23 17:16 Urine Culture - Preliminary
Urine Klebsiella pneumoniae-ESBL
09/28/23 CT c/a/p: Displaced left posterior 10th rib and predominantly nondisplaced left posterior 11th rib fracture. No left pneumothorax. Left lower lobe consolidation and small left pleural effusion. Two small high attenuation densities within
the consolidated left lower lobe of uncertain etiology, ? Aspiration. Markedly limited evaluation of the organs of the abdomen and pelvis without intravenous contrast in the setting of trauma. Vascular pedicle injury or other soft tissue injury
cannot be excluded although there are no significant findings of stranding about the organs of the abdomen and pelvis. Cardiomegaly. Coronary artery calcifications. Moderate L1 vertebral compression fracture, most likely remote.
Assessment / Plan
# ESBL-Klebsiella bacteruria
- Pt without urinary symptoms.
- UA + squamous epithelial cells indicative of contaminated specimen
- No indication for abx.
# Probable aspiration PNA LLL
- Can continue Zosyn (d3) for now
- At time of discharge transition to Augmentin 500mg po bid through 10/05/23.
- Aspiration precaution.
# s/p fall with left rib fractures
[2023-10-01 15:00] VITALS: BP 114/59
[2023-10-01 15:40] VITALS: BP 131/67; BP 138/65; BP 153/75; PULSE 70; PULSE 73; O2SAT 93
[2023-10-01] MEDS: ROXICODONE 2.5 MG PO ×2 (17:35→22:54)
[2023-10-01] MEDS: NORPRAMIN 100 MG PO (22:55)
[2023-10-01] MEDS: SINEQUAN 25 MG PO (22:56)
[2023-10-01 23:23] VITALS: BP 145/72
[2023-10-02] MEDS: ZOSYN 50 IV ×2 (02:53→07:49)
[2023-10-02] MEDS: SYNTHROID 25 MCG PO (05:21)
[2023-10-02 06:28] LABS: Hemoglobin 11.7 g/dL (12.0-16.0); Mean Corp Hgb Conc. 33.4 g/dL (33.0-37.0); Mean Corpuscular Hgb 30.5 pg (27.0-31.0); Mean Corpuscular Volume 91.1 fL (81.0-99.0); Mean Platelet Volume 11.7 fL (7.4-10.4); Platelet Count 213 10^3/uL (130-400); Red Blood Cell Count 3.84 10^6/uL (4.20-5.40); Red Cell Dist. Width 15.9 % (11.5-14.5); White Blood Cell Count 8.7 10^3/uL (4.8-10.8)
[2023-10-02 07:07] LABS: Blood Urea Nitrogen 22 mg/dl (7-17); Calcium 8.2 mg/dl (8.4-10.2); Carbon Dioxide 25 mmol/L (22-30); Chloride 106 mmol/L (98-107); Estimated Creatinine Clearance 30 ml/min; Glucose 85 mg/dl (70-99); Potassium 3.8 mmol/L (3.5-5.1); Sodium 136 mmol/L (135-145); eGFR 48.94
[2023-10-02 07:09] VITALS: BP 139/62
[2023-10-02] MEDS: ELIQUIS 2.5 MG PO ×2 (07:45→20:14)
[2023-10-02] MEDS: CARDIZEM CD PO (07:45)
[2023-10-02] MEDS: TYLENOL 1000 MG PO ×3 (07:46→21:20)
[2023-10-02] MEDS: LIPITOR 10 MG PO (07:46)
[2023-10-02] MEDS: NAMENDA 5 MG PO (07:46)
[2023-10-02] MEDS: LIDOCAINE 4% PATCH 1 PATCH TOPICAL (07:48)
--- NOTE | 2023-10-02 08:41 | W.PN.HOSP.TC ---
Addendum entered and electronically signed by Mohan Lundberg MD 10/02/23 17:29:
Patient seen and examined
Discussed with resident
87 years old female presents with fall and left sided rib fracture, likely small left lower lobe pneumonia versus atelectasis
ESBL bacteriuria with no evidence of UTI
Acute urinary retention
Acute kidney injury secondary to retention possibly mild dehydration.
Patient with prior history of CHF preserved EF, paroxysmal atrial fibrillation on anticoagulation with Eliquis.
Respiratory status stable
Antibiotics consolidated to Augmentin to complete 5 to 7-day course of treatment.
No clinical evidence of UTI.
BARB improved.
Voiding trial with Matos catheter to be removed on 10/01.
Initiate Flomax.
Continue physical therapy.
Plan is to discharge back to nursing facility after voiding trial on 10/02.
Original Note:
Today's Communication/Plan
-
Oral antibiotics-Augmentin.
Voiding trial, start Flomax.
Upon successful voiding trial-plan for discharge in the a.m. tomorrow.
Assessment / Plan
Assessment / Plan
Assessment-
Aydee 87-year-old female with significant dementia presented to the hospital s/p mechanical fall-diagnosed with left rib fractures.
Plan-
Left rib fractures-10th and 11th displaced
Currently on lidocaine patch and Tylenol 3 times daily.
On oxycodone as needed for moderate to severe pain
Urinary retention-
Patient straight cathed twice for PVR> 400.
Discontinue Matos catheter, voiding trial today.
Start Flomax.
Leukocytosis -resolved.
Secondary to possible aspiration pneumonia + UTI
Await urine culture - GNB
Completed 3 days of Zosyn, switch to oral Augmentin.
Ambulatory Dysfunction
PT/OT - Skilled rehab
prob exacerbated by infection, UTI
BARB-
elevated Creatinine upon admission unknown baseline
Lasix on hold.
IV fluids discontinued. Serum creatinine improved to 1.1
Trend renal function.
Chronic Heart Failure, unknown type
Patient with cardiac murmur on exam, suspect aortic stenosis
No echo cardiogram.
Lasix on hold for BARB - monitor to resume daily
Monitor Is&Os and Daily Weights
Paroxysmal Atrial Fibrillation
Continue apixaban at decreased dose based on renal function
Continue digoxin and diltiazem for rate and rhythm control.
Dysphagia
IDDSI 6 diet.
Hyperlipidemia
Continue atorvastatin
Dementia
Monitor for mood/behavior changes during hospitalization
Continue memantine
Anxiety/Depression
Continue desipramine and doxepin
Hypothyroidism
Continue levothyroxine
GERD
Continue famotidine
DVT proph: Eliquis
Code Status: DNR/DNI per [place] paperwork
Anticipated Discharge: Within 24 hours
Subjective/Interval History
-
Date of Service: October 02, 2023
Pleasantly demented.
Reports no complaints.
Objective Data
-
Labs:
Laboratory Results
10/02/23
06:00
WBC 8.7
Hgb 11.7 L
Hct 35.0 L
Plt Count 213
Sodium 136
Potassium 3.8
Chloride 106
Carbon Dioxide 25
BUN 22 H
Creatinine 1.1 H
Glucose 85
Calcium 8.2 L
Vital Signs:
Vital Signs
Temp Pulse Resp BP Pulse Ox
97.8 F 57 16 139/62 94
10/02/23 07:09 10/02/23 07:45 10/02/23 07:09 10/02/23 07:45 10/02/23 07:09
I&O
10/01/23 10/02/23 10/03/23
06:59 06:59 06:59
Intake Total 960 / 960 550 / 550
Output Total 750 / 750 1000 / 1000
Balance 210 / 210 -450 / -450
Review of Systems
-
Unable to obtain full review of systems at this time due to: Dementia
Physical Exam
-
General: No Apparent Distress and Comfortable (On room air.)
HEENT: Normocephalic, Atraumatic and Moist Mucous Membranes
Respiratory: Clear to Auscultation (In bilateral upper lobes, right middle lobe, right lower lobe.) and Decreased Breath Sounds (Left lower lobe.)
Cardiac: Regular Rhythm, S1/S2 and Murmur (Systolic murmur present); Negative Rub or Gallop
GI: Soft, Nontender, Nondistended and Normal Bowel Sounds
Genito-urinary: No Costovertebral Tender
Musculoskeletal: No Clubbing, No Cyanosis and Other (1+ pitting edema in bilateral lower extremities, wound dressing present on right shaw.)
Neuro: AO x 3 and No Motor Deficits
Psych: Apparent Dementia
[2023-10-02] MEDS: ROXICODONE 2.5 MG PO ×2 (08:58→19:10)
[2023-10-02 10:00] VITALS: BP 139/64; PULSE 67; O2SAT 94
[2023-10-02 11:00] VITALS: BP 124/65
[2023-10-02] MEDS: AUGMENTIN 500 MG/125 MG 1 TABLET PO ×2 (11:03→21:20)
[2023-10-02] MEDS: LANOXIN 125 MCG PO (11:03)
[2023-10-02] MEDS: FLOMAX 0.400000000000000022 MG PO (12:02)
[2023-10-02 14:10] VITALS: PULSE 66; O2SAT 94
--- NOTE | 2023-10-02 14:36 | W.PN.ID1 ---
Date of Service
Date of Service: October 02, 2023
Today's Communication
Continue Augmentin 500mg po bid through 10/05/23.
ID will sign off.
Assessment / Plan
# ESBL-Klebsiella bacteruria
- Pt without urinary symptoms.
- UA + squamous epithelial cells indicative of contaminated specimen
- No indication for abx.
# Probable aspiration PNA LLL
- s/p Zosyn (3d)
- Continue Augmentin 500mg po bid through 10/05/23.
- Aspiration precaution.
# s/p fall with left rib fractures
ID will sign off.
#Additional Past Medical History:
Chronic Heart Failure
Paroxysmal Atrial Fibrillation
Hyperlipidemia
Dysphagia
Dementia
Anxiety/Depression
Hypothyroidism
GERD
Chief Complaint
-: Pneumonia
Subjective / Review of Systems
Sitting up in chair. Does not know why she is here.
Vital Signs / Physical Exam
Vital Signs
Vital Signs
Temp Pulse Resp BP Pulse Ox
98.1 F 62 16 124/65 94
10/02/23 11:00 10/02/23 11:03 10/02/23 11:00 10/02/23 11:00 10/02/23 11:00
Physical Exam
Constitutional: No Acute Distress and Comfortable
Cardiovascular: Regular Rate and S1/S2
Pulmonary: Other (decreased BS left base)
Gastrointestinal: Soft, Non Tender and Non Distended
Extremities: Negative Edema
Neurological: Awake and Alert
Objective Data
Lab Data
Lab Results
10/02/23 06:00
10/02/23 06:00
Estimated Creat Clear 30 ml/min 10/02/23 06:00
Most recent labs reviewed.
Micro Results:
09/28/23 17:16 Urine Culture - Final
Urine Klebsiella pneumoniae-ESBL
09/28/23 CT c/a/p: Displaced left posterior 10th rib and predominantly nondisplaced left posterior 11th rib fracture. No left pneumothorax. Left lower lobe consolidation and small left pleural effusion. Two small high attenuation densities within
the consolidated left lower lobe of uncertain etiology, ? Aspiration. Markedly limited evaluation of the organs of the abdomen and pelvis without intravenous contrast in the setting of trauma. Vascular pedicle injury or other soft tissue injury
cannot be excluded although there are no significant findings of stranding about the organs of the abdomen and pelvis. Cardiomegaly. Coronary artery calcifications. Moderate L1 vertebral compression fracture, most likely remote.
--- NOTE | 2023-10-02 14:44 | CM ---
Pt from [facility]
Spoke with Christiane at [facility] - [phone]
Confirmed pt is a LTR
Updates sent in [facility]
Plan - return to [facility] when medically stable
[2023-10-02 16:47] VITALS: BP 156/73
[2023-10-02] MEDS: NORPRAMIN 100 MG PO (21:19)
[2023-10-02] MEDS: PEPCID 20 MG PO (21:20)
[2023-10-02] MEDS: SINEQUAN 25 MG PO (21:20)
[2023-10-02 23:00] VITALS: BP 124/73
[2023-10-03] MEDS: SYNTHROID 25 MCG PO (05:34)
[2023-10-03 05:48] VITALS: BMI 29.0
[2023-10-03 06:22] LABS: Hematocrit 36.2 % (37.0-47.0); Mean Corp Hgb Conc. 33.1 g/dL (33.0-37.0); Mean Corpuscular Hgb 29.5 pg (27.0-31.0); Mean Corpuscular Volume 88.9 fL (81.0-99.0); Mean Platelet Volume 11.2 fL (7.4-10.4); Platelet Count 223 10^3/uL (130-400); Red Blood Cell Count 4.07 10^6/uL (4.20-5.40); Red Cell Dist. Width 15.7 % (11.5-14.5); White Blood Cell Count 8.5 10^3/uL (4.8-10.8)
[2023-10-03 06:47] LABS: Blood Urea Nitrogen 24 mg/dl (7-17); Calcium 8.9 mg/dl (8.4-10.2); Carbon Dioxide 23 mmol/L (22-30); Chloride 106 mmol/L (98-107); Estimated Creatinine Clearance 37 ml/min; Glucose 97 mg/dl (70-99); Potassium 3.9 mmol/L (3.5-5.1); Sodium 136 mmol/L (135-145); eGFR > 60.00
[2023-10-03] MEDS: AUGMENTIN 500 MG/125 MG 1 TABLET PO (07:24)
[2023-10-03] MEDS: TYLENOL 1000 MG PO (07:24)
[2023-10-03] MEDS: NAMENDA 5 MG PO (07:24)
[2023-10-03] MEDS: FLOMAX 0.400000000000000022 MG PO (07:24)
[2023-10-03] MEDS: LIPITOR 10 MG PO (07:24)
[2023-10-03] MEDS: CARDIZEM CD 120 MG PO (07:26)
[2023-10-03] MEDS: ELIQUIS 2.5 MG PO (07:26)
[2023-10-03] MEDS: LIDOCAINE 4% PATCH 1 PATCH TOPICAL (07:27)
[2023-10-03 07:48] VITALS: BP 121/98
--- NOTE | 2023-10-03 09:20 | W.PN.HOSP.TC ---
Addendum entered and electronically signed by Mohan Lundberg MD 10/03/23 17:29:
Patient seen and examined
Discussed with resident
87 years old female presents with fall and left sided rib fracture, likely small left lower lobe pneumonia versus atelectasis
ESBL bacteriuria with no evidence of UTI
Acute urinary retention
Acute kidney injury secondary to retention possibly mild dehydration.
Patient with prior history of CHF preserved EF, paroxysmal atrial fibrillation on anticoagulation with Eliquis.
Respiratory status stable
Antibiotics consolidated to Augmentin to complete 5 to 7-day course of treatment.
No clinical evidence of UTI.
BARB improved.
Voiding trial with Matos catheter removed on 10/01
Initiated on Flomax
Continue physical therapy.
Medically optimized for discharge to nursing facility
Original Note:
Today's Communication/Plan
-
Continue Augmentin 500 twice daily through 10/04.
Continue pain management with lidocaine patches and acetaminophen.
Assessment / Plan
Assessment / Plan
Assessment-
Aydee 87-year-old female with significant dementia presented to the hospital s/p mechanical fall-diagnosed with left rib fractures.
Plan-
Left rib fractures-10th and 11th displaced
Currently on lidocaine patch and Tylenol 3 times daily.
On oxycodone as needed for moderate to severe pain
Urinary retention-
Patient straight cathed twice for PVR> 400.
Discontinue Matos catheter, voiding trial today.
Start Flomax.
Leukocytosis -resolved.
Secondary to possible aspiration pneumonia + UTI
Await urine culture - GNB
Completed 3 days of Zosyn, switch to oral Augmentin.
Ambulatory Dysfunction
PT/OT - Skilled rehab
prob exacerbated by infection, UTI
BARB-
elevated Creatinine upon admission unknown baseline
Lasix on hold.
IV fluids discontinued. Serum creatinine improved to 1.1
Trend renal function.
Chronic Heart Failure, unknown type
Patient with cardiac murmur on exam, suspect aortic stenosis
No echo cardiogram.
Lasix on hold for BARB - monitor to resume daily
Monitor Is&Os and Daily Weights
Paroxysmal Atrial Fibrillation
Continue apixaban at decreased dose based on renal function
Continue digoxin and diltiazem for rate and rhythm control.
Dysphagia
IDDSI 6 diet.
Hyperlipidemia
Continue atorvastatin
Dementia
Monitor for mood/behavior changes during hospitalization
Continue memantine
Anxiety/Depression
Continue desipramine and doxepin
Hypothyroidism
Continue levothyroxine
GERD
Continue famotidine
DVT proph: Eliquis
Code Status: DNR/DNI per [place] paperwork
Anticipated Discharge: Today
Subjective/Interval History
-
Date of Service: October 03, 2023
Patient is not able to give the history, pleasantly demented.
Objective Data
-
Labs:
Laboratory Results
10/03/23
05:55
WBC 8.5
Hgb 12.0
Hct 36.2 L
Plt Count 223
Sodium 136
Potassium 3.9
Chloride 106
Carbon Dioxide 23
BUN 24 H
Creatinine 0.9
Glucose 97
Calcium 8.9
Vital Signs:
Vital Signs
Temp Pulse Resp BP Pulse Ox
98 F 65 16 121/98 95
10/03/23 07:48 10/03/23 07:48 10/03/23 07:48 10/03/23 07:48 10/03/23 07:48
I&O
10/02/23 10/03/23 10/04/23
06:59 06:59 06:59
Intake Total 550 / 550 1170 / 1170
Output Total 1000 / 1000 600 / 600
Balance -450 / -450 570 / 570
Review of Systems
-
Unable to obtain full review of systems at this time due to: Dementia
Physical Exam
-
General: Comfortable
HEENT: Normocephalic, Atraumatic and Moist Mucous Membranes
Respiratory: Clear to Auscultation (No wheezes, rales, rhonchi)
Cardiac: Regular Rhythm, S1/S2 and Murmur (Systolic murmur present.); Negative Rub or Gallop
GI: Soft, Nontender, Nondistended and Normal Bowel Sounds
Genito-urinary: No Costovertebral Tender
Musculoskeletal: No Clubbing, No Cyanosis and Other (Plus pitting edema in bilateral lower extremities)
Skin: Other (Wound dressing on the right lower extremity shaw noted.)
Neuro: AO x 3
Psych: Calm
--- NOTE | 2023-10-03 09:37 | CM ---
Pt for discharge today
Called [facility] and spoke to Christiane - [phone]
Can accept today
Plan - return to [facility]
R - [phone]
F - [phone]
--- NOTE | 2023-10-03 10:15 | W.DCSUMMARY ---
Documented by User: Naa Slade MD, Resident 10/03/23 12:34
Discharge Summary
Discharge Data
Date of Admission: 09/28/23
Date of Discharge: 10/03/23
-
Pending Results: No
Hospital Course
Assessment-
Aydee 87-year-old female with significant dementia presented to the hospital s/p mechanical fall-diagnosed with left rib fractures
Impresssion -
Left rib fractures
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
UTI-asymptomatic bacteriuria
Urinary retention.
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
Ambulatory dysfunction
CHF
Paroxysmal A-fib
Dysphagia
Dementia
Anxiety/depression
Hypothyroidism
GERD
Hospital course-
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 She was also found to have
leukocytosis and urinary retention,-her urine culture was positive for ESBL Klebsiella. She was given narcotics and lidocaine patches for pain, straight cath twice. Due to ongoing urinary retention patient received an indwelling Matos's catheter.
Her UTI was treated with IV Zosyn-for 3 days and then switch to Augmentin for 7 days based on her culture sensitivity. Her BARB resolved with adequate hydration, and holding Lasix. Her weight remained pretty stable during the process of hydration.
Patient was also noticed to have a groin rash and was treated with miconazole.
Matos's was removed yesterday, patient was initiated on tamsulosin and patient was kept on voiding trial-patient had spontaneous voiding.
All other medical conditions prior to admission were treated with her home medication regimen.
The prophylaxis was given with heparin SC.
Investigations-
Chest/abdomen/pelvis CT-09/27
Displaced left posterior 10th rib and predominantly nondisplaced left posterior 11th rib fracture. No left pneumothorax.
Left lower lobe consolidation and small left pleural effusion. Two small high attenuation densities within the consolidated left lower lobe of uncertain etiology, ? Aspiration.
Markedly limited evaluation of the organs of the abdomen and pelvis without intravenous contrast in the setting of trauma. Vascular pedicle injury or other soft tissue injury cannot be excluded although there are no significant findings of stranding
about the organs of the abdomen and pelvis.
Cardiomegaly. Coronary artery calcifications.
Moderate L1 vertebral compression fracture, most likely remote.
Cholelithiasis.
Head CT-09/27
IMPRESSION:
No acute intracranial abnormalities.
Findings compatible with diffuse cortical atrophy with nonspecific white matter changes as described above.
Sacrum and coccyx x-ray-09/27-
IMPRESSION:
1. There is a compression fracture of the body of L1, age uncertain
2. There is a grade 1 spondylolisthesis at L5/S1
Ribs/chest x-ray-09/27
IMPRESSION:
1. There are fractures of the lateral left ninth and 10th ribs.
2. There is a moderate sized left pleural effusion
3. Pulmonary findings suggest mild congestive heart failure
Lumbar spine x-ray-09/27
IMPRESSION:
1. There is a compression fracture of the body of L1, age uncertain
2. There is a grade 1 spondylolisthesis at L5/S1
Hip x-ray-09/27
IMPRESSION:
1. There is a compression fracture of the body of L1, age uncertain
2. There is a grade 1 spondylolisthesis at L5/S1
Discharge recommendations-
Continue amoxicillin through 10/07/2023
Continue pain medications as needed
Consider discontinuing doxepin as doxepin can cause urinary retention.
Follow-up with primary care in 1 week.
Discharge Plan
-
Patient Disposition: Senior Living/SNF
Discharge Diagnosis/Procedures: S/p mechanical fall, left rib fractures, BARB secondary to dehydration.
Diet: 2 Gram Sodium
Activity: No restrictions
Driving Restrictions: As prior to admission
Bathing Restrictions: None
Other Services: PT and OT
Referrals:
Zack Palomo, DO [Family Provider] - in less than 1 week
Prescriptions:
New
amoxicillin-pot clavulanate 500-125 mg Tablet
1 tab PO Q12 4 Days Qty: 8 0RF
miconazole nitrate [Miconazorb AF] 2 % Powder
1 applic topical BIDPRN PRN (Reason: GROIN RASH) Qty: 85 0RF
lidocaine 5 % adhesive patch,medicated
1 patch topical DAILY Qty: 15 0RF
Rx Instructions:
remove after 12 hours.
tamsulosin 0.4 mg Capsule
0.4 mg PO DAILY Qty: 30 0RF
acetaminophen [Tylenol Extra Strength] 500 mg Tablet
1,000 mg PO TID MDD 3000mg Qty: 60 0RF
oxycodone 5 mg Tablet
2.5 mg PO Q4HPRN PRN (Reason: moderate pain) Qty: 14 0RF
Continued
furosemide 40 mg Tablet
40 mg PO BID
atorvastatin 10 mg Tablet
10 mg PO DAILY
doxepin 25 mg Capsule
25 mg PO HS
levothyroxine 25 mcg Tablet
25 mcg PO DAILY
potassium chloride 20 mEq Tablet,Er Particles/Crystals
20 meq PO DAILY
famotidine 20 mg Tablet
20 mg PO BID
bisacodyl 10 mg Suppository
10 mg MA DAILY PRN (Reason: constipation)
Fleet Enema 19-7 gram/118 mL Enema
118 ml MA DAILYPRN PRN (Reason: constipation)
digoxin 125 mcg (0.125 mg) Tablet
125 mcg PO DAILY
desipramine 100 mg Tablet
100 mg PO HS
diltiazem HCl 120 mg Tablet Extended Release 24 Hr
120 mg PO DAILY
memantine 5 mg Tablet
5 mg PO DAILY
apixaban 5 mg Tablet
5 mg PO BID
Discontinued
acetaminophen 325 mg Tablet
650 mg PO Q6H PRN (Reason: mild/fever)
magnesium hydroxide [Milk of Magnesia] 400 mg/5 mL Suspension
30 ml PO DAILY PRN (Reason: constipation)
potassium chloride 15 mEq Tablet,Er Particles/Crystals
15 meq PO DAILY
Discharge Orders:
Discharge Patient (As Directed); Ordered 10/03/23
Ordered By: Naa Slade
Discharge Date and Time
Discharge Date/Time: 10/03/23 12:33
Print Language: ICELANDIC

Documented by User: Mohan Lundberg MD 10/03/23 17:27
Discharge Summary
Discharge Data
Date of Admission: 09/28/23
Date of Discharge: 10/03/23
Discharge Plan
-
Patient Disposition: Senior Living/SNF
Discharge Diagnosis/Procedures: S/p mechanical fall, left rib fractures, BARB secondary to dehydration.
Diet: 2 Gram Sodium
Activity: No restrictions
Driving Restrictions: As prior to admission
Bathing Restrictions: None
Other Services: PT and OT
Referrals:
Zack Palomo, DO [Family Provider] - in less than 1 week
Prescriptions:
New
amoxicillin-pot clavulanate 500-125 mg Tablet
1 tab PO Q12 4 Days Qty: 8 0RF
miconazole nitrate [Miconazorb AF] 2 % Powder
1 applic topical BIDPRN PRN (Reason: GROIN RASH) Qty: 85 0RF
lidocaine 5 % adhesive patch,medicated
1 patch topical DAILY Qty: 15 0RF
Rx Instructions:
remove after 12 hours.
tamsulosin 0.4 mg Capsule
0.4 mg PO DAILY Qty: 30 0RF
acetaminophen [Tylenol Extra Strength] 500 mg Tablet
1,000 mg PO TID MDD 3000mg Qty: 60 0RF
oxycodone 5 mg Tablet
2.5 mg PO Q4HPRN PRN (Reason: moderate pain) Qty: 14 0RF
Continued
furosemide 40 mg Tablet
40 mg PO BID
atorvastatin 10 mg Tablet
10 mg PO DAILY
doxepin 25 mg Capsule
25 mg PO HS
levothyroxine 25 mcg Tablet
25 mcg PO DAILY
potassium chloride 20 mEq Tablet,Er Particles/Crystals
20 meq PO DAILY
famotidine 20 mg Tablet
20 mg PO BID
bisacodyl 10 mg Suppository
10 mg MA DAILY PRN (Reason: constipation)
Fleet Enema 19-7 gram/118 mL Enema
118 ml MA DAILYPRN PRN (Reason: constipation)
digoxin 125 mcg (0.125 mg) Tablet
125 mcg PO DAILY
desipramine 100 mg Tablet
100 mg PO HS
diltiazem HCl 120 mg Tablet Extended Release 24 Hr
120 mg PO DAILY
memantine 5 mg Tablet
5 mg PO DAILY
apixaban 5 mg Tablet
5 mg PO BID
Discontinued
acetaminophen 325 mg Tablet
650 mg PO Q6H PRN (Reason: mild/fever)
magnesium hydroxide [Milk of Magnesia] 400 mg/5 mL Suspension
30 ml PO DAILY PRN (Reason: constipation)
potassium chloride 15 mEq Tablet,Er Particles/Crystals
15 meq PO DAILY
Discharge Orders:
Discharge Patient (As Directed); Ordered 10/03/23
Ordered By: Naa Slade
Discharge Date and Time
Discharge Date/Time: 10/03/23 12:33
Print Language: ICELANDIC
[2023-10-03] MEDS: ROXICODONE 2.5 MG PO (11:12)
[2023-10-03] MEDS: LANOXIN 125 MCG PO (11:12)
--- NOTE | 2023-10-03 11:54 | W.DS.TRANS ---
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
-
Discharge Instructions:
Discharge Diagnosis/Procedures S/p mechanical fall, left rib fractures, BARB
secondary to dehydration.
Diet 2 Gram Sodium
Activity No restrictions
Driving Restrictions As prior to admission
Bathing Restrictions None
Other Services PT,OT
Instructions:
Stand-Alone Forms:
Changes to Home Medications: Yes
Discharge Medications:
DC Medications w/original date entered in [facility]
apixaban 5 mg tablet 5 mg PO BID Blood Clot Prevention/Tx 09/28/23
atorvastatin 10 mg tablet 10 mg PO DAILY High Cholesterol 09/28/23
bisacodyl 10 mg rectal suppository 10 mg RI DAILY PRN constipation 09/28/23
desipramine 100 mg tablet 100 mg PO HS sleep, mental health 09/28/23
digoxin 125 mcg (0.125 mg) tablet 125 mcg PO DAILY Heart Disease/Condition 09/28/23
diltiazem HCl 120 mg tablet,extended release 24 hr 120 mg PO DAILY Heart Disease/Condition 09/28/23
doxepin 25 mg capsule 25 mg PO HS sleep/mental health 09/28/23
famotidine 20 mg tablet 20 mg PO BID Gastrointestinal Issue 09/28/23
furosemide 40 mg tablet 40 mg PO BID Fluid Retention/Swelling 09/28/23
levothyroxine 25 mcg tablet 25 mcg PO DAILY Thyroid 09/28/23
memantine 5 mg tablet 5 mg PO DAILY dementia 09/28/23
potassium chloride 20 mEq tablet,extended release(part/cryst) 20 meq PO DAILY Electrolyte Repletion 09/28/23
sodium phosphates 19 gram-7 gram/118 mL enema (Fleet Enema) 118 ml RI DAILYPRN PRN constipation 09/28/23
acetaminophen 500 mg tablet (Tylenol Extra Strength) 1,000 mg (2 x 500 mg) PO TID Anti-inflammatory #60 tabs 10/03/23
amoxicillin 500 mg-potassium clavulanate 125 mg tablet 1 tab PO Q12 4 days #8 tabs 10/03/23
lidocaine 5 % topical patch 1 patch topical DAILY #15 ea 10/03/23
miconazole nitrate 2 % topical powder (Miconazorb AF) 1 applic topical BIDPRN PRN GROIN RASH #85 grams 10/03/23
oxycodone 5 mg tablet 2.5 mg (1/2 x 5 mg) PO Q4HPRN PRN moderate pain #14 tabs 10/03/23
tamsulosin 0.4 mg capsule 0.4 mg PO DAILY Urinary issue #30 caps 10/03/23
Home Medication Changes
acetaminophen 500 mg tablet (Tylenol Extra Strength) 1,000 mg (2 x 500 mg) PO TID Anti-inflammatory #60 tabs 10/03/23
amoxicillin 500 mg-potassium clavulanate 125 mg tablet 1 tab PO Q12 4 days #8 tabs 10/03/23
lidocaine 5 % topical patch 1 patch topical DAILY #15 ea 10/03/23
miconazole nitrate 2 % topical powder (Miconazorb AF) 1 applic topical BIDPRN PRN GROIN RASH #85 grams 10/03/23
oxycodone 5 mg tablet 2.5 mg (1/2 x 5 mg) PO Q4HPRN PRN moderate pain #14 tabs 10/03/23
tamsulosin 0.4 mg capsule 0.4 mg PO DAILY Urinary issue #30 caps 10/03/23
Pending Results: No
[2023-10-03 12:40] VITALS: BP 125/86
== END 2023-10-03 12:33 | DRG 183 ==
LOC: 3 WEST ACU 19:58
PROVIDERS: Internal Medicine; Physician Assistant; Physician Assistant Medical; Student in an Organized Health Care Education/Training Program; ADMITTING PHYSICIAN Hospitalist; ATTENDING PHYSICIAN Internal Medicine; CONSULT PHYSICIAN Internal Medicine Infectious Disease; EMERGENCY PHYSICIAN Emergency Medicine; FAMILY PHYSICIAN Internal Medicine
PROC: 0T9B70Z Drainage of Bladder with Drainage Device, Via Natural or Artificial Opening (ICD-10-PCS; 2023-09-30)
DX: S22.42XA Multiple fractures of ribs, left side, initial encounter for closed fracture (principal); J69.0 Pneumonitis due to inhalation of food and vomit; F03.94 Unspecified dementia, unspecified severity, with anxiety; N39.0 Urinary tract infection, site not specified; N17.9 Acute kidney failure, unspecified; Z16.12 Extended spectrum beta lactamase (ESBL) resistance; I50.32 Chronic diastolic (congestive) heart failure; J90 Pleural effusion, not elsewhere classified; R29.6 Repeated falls; I48.0 Paroxysmal atrial fibrillation; M54.9 Dorsalgia, unspecified; W18.30XA Fall on same level, unspecified, initial encounter; Y93.9 Activity, unspecified; Y92.9 Unspecified place or not applicable; E86.0 Dehydration; E78.5 Hyperlipidemia, unspecified; B96.1 Klebsiella pneumoniae [K. pneumoniae] as the cause of diseases classified elsewhere; R13.10 Dysphagia, unspecified; R33.9 Retention of urine, unspecified; E87.6 Hypokalemia; F32.A Depression, unspecified; N18.9 Chronic kidney disease, unspecified; R21 Rash and other nonspecific skin eruption; E03.9 Hypothyroidism, unspecified; I08.0 Rheumatic disorders of both mitral and aortic valves; I25.10 Atherosclerotic heart disease of native coronary artery without angina pectoris; M43.17 Spondylolisthesis, lumbosacral region; K80.20 Calculus of gallbladder without cholecystitis without obstruction; K21.9 Gastro-esophageal reflux disease without esophagitis; Z66 Do not resuscitate; Z79.01 Long term (current) use of anticoagulants; Z88.6 Allergy status to analgesic agent; Z88.5 Allergy status to narcotic agent; Z88.2 Allergy status to sulfonamides; Z88.8 Allergy status to other drugs, medicaments and biological substances
CPT/HCPCS: 70450; 71101; 71250; 72100; 72220; 73502; 74176; 80048; 81003; 81015; 85025; 85027; 87077; 87086; 87186; 92526; 92610; 93306; 96360; 97116; 97163; 97166; 97530; 97535; 99285

== ENCOUNTER 2024-04-15 13:41 | Inpatient (IN) | payer MEDICARE, MEDICAID, SELFPAY ==
--- NOTE | 2024-04-12 22:59 | ED.GENMED ---
History of Present Illness
General
Chief Complaint: Chest Pain
Source: patient
Exam Limitations: none
Time Seen by Provider: 04/12/24 22:58
History of Present Illness
History of Present Illness:
88-year-old female presents from facility with complaints of chest discomfort. She describes a burning discomfort in the upper abdomen/lower chest. She is uncertain of the onset. Patient does have a history of dementia. She denies any shortness
of breath. There has been no cough or fever. She is anticoagulated for history of A-fib. She also have a history of CHF.
Phy Exam
Physical Exam
Physical Exam:
General: Well-appearing female no acute respiratory distress
HEENT: Normocephalic atraumatic
Heart: Regular rate and rhythm holosystolic murmur that is harsh is noted
Lungs: Clear bilaterally
Abdomen is soft nontender nondistended
Extremities: No cyanosis
Scores
Heart Score for Chest Pain Patients
STEMI patient?: No
History: Slightly or Non-Suspicious
ECG: Nonspecific Repolarization
Age: >/= 65 years
Risk Factors: 1 or 2 Risk Factors
Troponin: >1 - <3 x Normal Limit
Heart Score for Chest Pain Patients: 5
Heart Score Risk: 20.3% MACE over next 6 weeks
Course
Orders/Labs/Results
Orders:
Orders
04/12/24 22:59
Electrocardiogram (*1) Urgent
Reason for Study: Chest Pain
Cardiac Monitoring- Treatment ONCE
EKG- Treatment ONCE
04/12/24 23:13
Complete Blood Count/With Diff Urgent
04/12/24 23:26
Add On- LAB Urgent
Tests Added?: LIPASE
04/12/24 23:51
Mag Hydrox/Al Hydrox/Simeth [Maalox] 30 ml PO NOW STA
04/12/24 23:56
Comprehensive Metabolic Panel Urgent
Comment: REDRAW
Lipase Urgent
Troponin I Urgent
04/13/24 00:00
CR Chest - 2 Views Urgent
Reason For Exam: chest pain
04/13/24 00:03
CT Abd/pelvis W Iv Cont Urgent
Reason For Exam: upper abdominal pain
04/13/24 02:03
Troponin I Urgent
Abnormal Lab Results
04/12/24 04/12/24 04/13/24
23:13 23:56 02:03
MCH 31.7 H pg
(27.0-31.0)
MPV 10.9 H fL
(7.4-10.4)
Absolute Monos (auto) 1.1 H 10^3/uL
(0.1-0.6)
Monocytes % 11.8 H %
(1.7-9.3)
Potassium 3.3 L mmol/L
(3.5-5.1)
BUN 29 H mg/dl
(7-17)
Creatinine 1.1 H mg/dL
(0.6-1.0)
Glucose 123 H mg/dl
(70-99)
Alkaline Phosphatase 134 H U/L
(38-126)
Troponin I 0.035 H* ng/ml
04/12/24 23:13
04/12/24 23:56
Vital Signs
Initial and Last Documented VS:
Initial Vital Signs
Temp Pulse Resp BP Pulse Ox
98.1 F 69 20 156/92 95
04/12/24 23:00 04/12/24 23:00 04/12/24 23:00 04/12/24 23:00 04/12/24 23:00
Last Documented Vital Signs
Temp Pulse Resp BP Pulse Ox
98.1 F 109 17 156/74 94
04/12/24 23:00 04/13/24 02:45 04/13/24 02:30 04/13/24 02:00 04/13/24 02:15
MDM/Problems Addressed
Differential Diagnosis Includes:
Chest pain. Consider reflux versus GERD versus ACS. She is anticoagulated. Would not suspect PE. Vital signs are stable.
Check labs including CBC CMP lipase troponin, BNP. Chest x-ray pending. Maalox ordered
*Critical Care Note
Total Time (30-74mins, 75-104mins- exclusive of procedures): Not Applicable
Update Note
Update Note:
Patient reexamined and proved to be a difficult historian. She notes some epigastric discomfort upon palpation. EKG shows A-fib. Repeat troponin slightly elevated at 0.035. Secondary to the level of dementia difficult history, will keep for
serial troponins and further evaluation.
ED Attending Note
-
Portions of this chart may have been created with voice recognition software.� Occasional wrong word or��sound alike� substitutions may have occurred due to the inherent limitations of voice recognition software.
Discharge Plan
Departure
Patient Disposition: Admit
Date of Disposition: 04/13/24
Time of Disposition: 03:02
Admit to: Telemetry
Presentation/result/management discussed w/ accepting MD/DO: Hospitalist
Discharge Problem:
Chest pain
Prescriptions:
No Action
furosemide 40 mg Tablet
40 mg PO BID
atorvastatin 10 mg Tablet
10 mg PO DAILY
doxepin 25 mg Capsule
25 mg PO HS
levothyroxine 25 mcg Tablet
25 mcg PO DAILY
famotidine 20 mg Tablet
20 mg PO BID
bisacodyl 10 mg Suppository
10 mg KS DAILY PRN (Reason: constipation)
Fleet Enema 19-7 gram/118 mL Enema
118 ml KS DAILYPRN PRN (Reason: constipation)
digoxin 125 mcg (0.125 mg) Tablet
125 mcg PO DAILY
desipramine 100 mg Tablet
100 mg PO HS
diltiazem HCl 120 mg Tablet Extended Release 24 Hr
120 mg PO DAILY
memantine 5 mg Tablet
5 mg PO BID
apixaban 5 mg Tablet
5 mg PO BID
tamsulosin 0.4 mg Capsule
0.4 mg PO DAILY Qty: 30 0RF
acetaminophen [Tylenol Extra Strength] 500 mg Tablet
1,000 mg PO TID MDD 3000mg Qty: 60 0RF
melatonin 3 mg Tablet
3 mg PO HS
calcium carbonate [Calcium 600] 600 mg calcium (1,500 mg) Tablet
600 mg PO BID
magnesium hydroxide [Milk of Magnesia] 400 mg/5 mL Suspension
30 ml PO DAILY PRN (Reason: constipation)
sertraline 25 mg Tablet
25 mg PO DAILY
potassium chloride [Klor-Con M15] 15 mEq Tablet,Er Particles/Crystals
20 meq PO DAILY
cholecalciferol (vitamin D3) [Vitamin D3] 25 mcg (1,000 unit) Tablet
50 mcg PO DAILY
Referrals:
Zack Palomo DO [Family Provider] -
Interventions
Interventions:
*Risk Screen - Suicide Last Done: 04/12/24 23:00
*General Assessment Last Done: 04/12/24 23:16
*Neglect/Abuse Screening Last Done: 04/12/24 23:00
ED- Fall Risk Assessment Last Done: 04/12/24 23:16
*ED COVID-19 Vaccine History Last Done: 04/12/24 23:16
ED- Cardiac Assessment Last Done: 04/12/24 23:16
Discharge Date and Time
Print Language: CYMRO
[2024-04-12 23:00] VITALS: BP 156/92
[2024-04-12 23:04] VITALS: BP 156/92
[2024-04-12 23:14] VITALS: BMI 28.8
[2024-04-12 23:48] LABS: % Basophils 0.7 % (0-2); % Eosinophils 0.2 % (0-6); % Immature Granulocytes 0.2 % (0-0.5); % Lymphocytes 23.1 % (20.5-51.1); % Monocytes 11.8 % (1.7-9.3); Absolute Basophils 0.1 10^3/uL (0-0.2); Absolute Lymphocytes 2.1 10^3/uL (1.2-3.4); Absolute Monocytes 1.1 10^3/uL (0.1-0.6); Absolute Neutrophils 5.8 10^3/uL (1.4-6.5); Hematocrit 40.8 % (37.0-47.0); Mean Corp Hgb Conc. 34.3 g/dL (33.0-37.0); Mean Corpuscular Hgb 31.7 pg (27.0-31.0); Mean Corpuscular Volume 92.5 fL (81.0-99.0); Mean Platelet Volume 10.9 fL (7.4-10.4); Nucleated Red Blood Cells % 0 %; Platelet Count 231 10^3/uL (130-400); Red Blood Cell Count 4.41 10^6/uL (4.20-5.40); Red Cell Dist. Width 13.4 % (11.5-14.5)
[2024-04-12] MEDS: MAALOX 30 ML PO (23:59)
[2024-04-13] VITALS (14 sets, daily range): BP systolic 125–159; BP diastolic 59–96; BMI 28.0
[2024-04-13 00:19] LABS: ALT (SGPT) 13 U/L (0-35); AST (SGOT) 21 U/L (14-36); Albumin 3.8 g/dl (3.5-5.0); Alkaline Phosphatase 134 U/L (38-126); Blood Urea Nitrogen 29 mg/dl (7-17); Calcium 8.8 mg/dl (8.4-10.2); Carbon Dioxide 25 mmol/L (22-30); Chloride 104 mmol/L (98-107); Estimated Creatinine Clearance 33 ml/min; Glucose 123 mg/dl (70-99); Lipase 147 U/L (23-300); Potassium 3.3 mmol/L (3.5-5.1); Sodium 139 mmol/L (135-145); Total Protein 6.9 g/dl (6.3-8.2); eGFR 48.63
[2024-04-13 00:28] LABS: Troponin I 0.032 ng/ml
[2024-04-13 02:42] LABS: Troponin I 0.035 ng/ml
--- NOTE | 2024-04-13 03:43 | HPS.HSE ---
Family Physician
-
Family Physician: Zack Palomo, DO
Chief Complaint
-
Chest Pain
History of Present Illness
88-year-old female with past medical history of dementia, atrial fibrillation on anticoagulation, GERD, CHF presenting to the emergency department with episode of chest pain.
Patient has significant dementia and is a poor historian. Per EMS patient clutched her chest and told the nursing staff at the unit that she was having chest pain and she was transferred to the emergency department. Upon arrival in the emergency
department the patient had no complaints. For me the patient denied chest pain. She was unable to provide any history around the chest pain to elucidate for shortness of breath diaphoresis palpitations lightheadedness or dizziness at that time.
She is currently without any such symptoms. She denies any nausea or vomiting. She denies any abdominal pain.
Patient had an EKG which shows atrial fibrillation. Initial troponin was 0.032. The second 1 was 0.035. She was afebrile, blood pressure was stable at 139/70 pulse of pain in the 70s. CBC was unremarkable. Likewise electrolytes only notable for
potassium of 3.3 but was otherwise unchanged from prior. Chest x-ray shows no acute infiltrates. Lipase and LFTs were within normal limits. CT of the abdomen and pelvis shows no acute findings
Medical History
Past Medical History
Past Medical History: Reports Arrhythmia (paroxysmal afib), CHF, Dementia, GERD and HTN
Additional Past Medical History:
Urinary issue
Past Surgical History: Reports Other
Social History
Tobacco: Non-smoker
Alcohol: None
Drug: None
Living: [facility]
Employment: Retired
Family History
Family History: Not pertinent
Allergies / Home Medications
Allergies reflects when Allergies were last updated in [employer].
Home Medications with original date entered in [employer]
Allergy/Medication List:
Allergies
Allergy/AdvReac Type Severity Reaction Status Date / Time
aspirin Allergy Unknown Verified 04/12/24 23:12
codeine Allergy Unknown Verified 04/12/24 23:12
metronidazole Allergy Unknown Verified 04/12/24 23:12
sulfadiazine Allergy Unknown Verified 04/12/24 23:12
Home Medications
apixaban 5 mg tablet 5 mg PO BID Blood Clot Prevention/Tx 09/28/23
atorvastatin 10 mg tablet 10 mg PO DAILY High Cholesterol 09/28/23
bisacodyl 10 mg rectal suppository 10 mg SD DAILY PRN constipation 09/28/23
desipramine 100 mg tablet 100 mg PO HS sleep, mental health 09/28/23
digoxin 125 mcg (0.125 mg) tablet 125 mcg PO DAILY Heart Disease/Condition 09/28/23
diltiazem HCl 120 mg tablet,extended release 24 hr 120 mg PO DAILY Heart Disease/Condition 09/28/23
doxepin 25 mg capsule 25 mg PO HS sleep/mental health 09/28/23
famotidine 20 mg tablet 20 mg PO BID Gastrointestinal Issue 09/28/23
furosemide 40 mg tablet 40 mg PO BID Fluid Retention/Swelling 09/28/23
levothyroxine 25 mcg tablet 25 mcg PO DAILY Thyroid 09/28/23
memantine 5 mg tablet 5 mg PO BID dementia 09/28/23
sodium phosphates 19 gram-7 gram/118 mL enema (Fleet Enema) 118 ml SD DAILYPRN PRN constipation 09/28/23
acetaminophen 500 mg tablet (Tylenol Extra Strength) 1,000 mg (2 x 500 mg) PO TID Anti-inflammatory #60 tabs 10/03/23
tamsulosin 0.4 mg capsule 0.4 mg PO DAILY Urinary issue #30 caps 10/03/23
calcium carbonate (Calcium 600) 600 mg PO BID 04/13/24
cholecalciferol (vitamin D3) 25 mcg (1,000 unit) tablet (Vitamin D3) 50 mcg PO DAILY 04/13/24
magnesium hydroxide 400 mg/5 mL oral suspension (Milk of Magnesia) 30 ml PO DAILY PRN constipation 04/13/24
melatonin 3 mg tablet 3 mg PO HS 04/13/24
potassium chloride 15 mEq tablet,extended release(part/cryst) (Klor-Con M) 20 meq PO DAILY 04/13/24
sertraline 25 mg tablet 25 mg PO DAILY 04/13/24
Review of Systems
-
Unable to obtain full review of systems at this time due to: Dementia
History Source: Patient
Constitutional: Reports No Symptoms
EENT: Reports No Symptoms
Respiratory: Reports No Symptoms
Cardiac: Reports No Symptoms
Abdomen/GI: Reports No Symptoms
: Reports No Symptoms
Musculoskeletal: Reports No Symptoms
Skin: Reports No Symptoms
Neurological: Reports No Symptoms
Endocrine: Reports No Symptoms
Psych: Reports No Symptoms
Physical Exam
Vital Signs
Vital Signs
Temp Pulse Resp BP Pulse Ox
98.1 F 75 15 139/72 95
04/12/24 23:00 04/13/24 03:00 04/13/24 03:00 04/13/24 03:00 04/13/24 03:00
Physical Exam
General: No Apparent Distress, Comfortable and Conversant
HEENT: NormoCephalic, Anicteric, Moist mucous membranes and Atraumatic
Respiratory: Clear
Cardiac: S1/S2 and Irregular Rhythm
GI: Soft, Non Tender, Non Distended and Normal Bowel Sounds
Rectal: Deferred by Provider
Genito-urinary: Deferred by me
Musculoskeletal: No Clubbing, No Cyanosis and No Edema
Neuro: Awake and Oriented (oriented to person )
Psych: Calm
Laboratory Results
-
04/12/24 23:13
04/12/24 23:56
Laboratory Results
Total Bilirubin 1.0 mg/dl (0.2-1.3) 04/12/24 23:56
AST 21 U/L (14-36) 04/12/24 23:56
ALT 13 U/L (0-35) 04/12/24 23:56
Alkaline Phosphatase 134 U/L (38-126) H 04/12/24 23:56
Troponin I 0.035 ng/ml H* 04/13/24 02:03
Lipase 147 U/L (23-300) 04/12/24 23:56
Data Reviewed
-
Diagnostic Radiology: Image Personally Visualized and interpreted
CT Scan: Report Reviewed by me
Medical Tests (Nuc Med, Echo, EKG etc): Image Personally Visualized and interpreted
Lab Data: Labs Reviewed by me
Old Records: Reviewed
Impression/Plan
-
IMPRESSION:
88 y.o with dementia comes in to ED after complaint of chest pain at custodial. Unable to get differentiating details as patient is a poor historian. ECG shows afib and is non-ischemic. Troponin is boderline at 0.032 - > 0.035. Xray clear.
CTAP shows no significant acute abnormalities. Labs otherwise unremarkable. Differential includes episode of uncontrolled afib, actual cardiac chest pain, GERD, or MSK pain
PLAN:
1. Chest pain - H/O afib and CHF. Currently rate controlled and stable. Chest pain free. Unknown duration of symptoms. ECG non-ischemic.
- admit to telemetry observation
- repeat troponin x 2
- continue apixaban for now unless troponin rises
- repeat ECG if recurrent cp
- if troponin is flat, continue current medical tx with ac, atorvastin, if significant rise will give aspirin and consult cardiology
2. AFIB - Rate controlled
- tele
- continue digoxin and dilt
- continue apixaban
- keep K > 4
3. CHF - Euvolemic appearing.
- fusodemide 40mg bid
- digoxin as above
Others
- continue levothyroxine
sertraline/memantine for dementia
tamsulosin for urinary retention
[2024-04-13] MEDS: KLOR-CON 40 MEQ PO (05:41)
[2024-04-13] MEDS: SYNTHROID 25 MCG PO (07:02)
[2024-04-13 07:39] LABS: Blood Urea Nitrogen 27 mg/dl (7-17); Calcium 8.5 mg/dl (8.4-10.2); Carbon Dioxide 26 mmol/L (22-30); Chloride 106 mmol/L (98-107); Estimated Creatinine Clearance 37 ml/min; Glucose 121 mg/dl (70-99); Magnesium 2.2 mg/dl (1.6-2.3); Potassium 4.5 mmol/L (3.5-5.1); Sodium 140 mmol/L (135-145); eGFR 54.53
--- NOTE | 2024-04-13 08:05 | W.PN.HOSP.TC ---
Today's Communication/Plan
-
Chest pain workup
Treat constipation
Assessment / Plan
Assessment / Plan
88-year-old female presented with chest pain. Poor historian from dementia
Echo 10/02/2023-normal LV size and function. EF 55 to 60%. Normal RV size and function. Mild MR. Moderate to severe . Mild TR. Pulmonary artery pressure 31 mmHg.
CAT scan of the abdomen and pelvis-gallstones, moderate fecal material throughout the colon, cystic pancreatic masses, nonobstructing bilateral renal stones, hypodense left renal lesion, mild cardiomegaly, moderate L1 compression fracture
Patient awake alert. Pleasantly confused
Cardiovascular system S1-S2 appreciated, systolic murmur at aortic area
Chest clear to auscultation
Abdomen soft and nontender no wrapped upper quadrant tenderness
No pedal edema
# Chest pain
Continue monitor on telemetry
Continue troponin-mild elevation noted
Patient has moderate to severe therefore we will request cardiology evaluation
# Constipation-enema ordered. Bowel regimen ordered. Will do clear liquid diet until patient has a bowel movement
# Rate controlled atrial fibrillation-continue digoxin, diltiazem and Eliquis
# Chronic CHF-type unknown-on Lasix as outpatient. Continue
# Hypokalemia-resolved
# Acute kidney injury-resolving
# Dysphagia-speech evaluation
# Cystic pancreatic mass-outpatient MRI
# Nephrolithiasis
# Hyperlipidemia-continue atorvastatin
# Hypothyroidism-continue Synthroid
# Anxiety/depression-continue sertraline desipramine, doxepin
# Dementia-continue Namenda
# Moderate L1 compression fracture
# Hypodense left renal lesion-outpatient CT scan dedicated to the kidneys with and without contrast
# Gallstones
# GERD-Pepcid to be continued
# History of left mastectomy
# DVT prophylaxis-Eliquis
# DNR
Called [facility] for patient's primary and secondary contact as below-number listed here is [facility] number
Augustin Laureano - [phone]
Mehran Osorio [phone]
Patient's son Augustin updated with plan of care and also regarding outpatient workup for pancreatic and renal lesions.
Anticipated Discharge: Within 24 hours
Subjective/Interval History
-
Date of Service: April 13, 2024
Objective Data
-
Labs:
Laboratory Results
04/12/24 04/12/24 04/13/24
23:13 23:56 07:06
WBC 9.0
Hgb 14.0
Hct 40.8
Plt Count 231
Sodium Cancelled 139 140
Potassium Cancelled 3.3 L 4.5 D
Chloride Cancelled 104 106
Carbon Dioxide Cancelled 25 26
BUN Cancelled 29 H 27 H
Creatinine Cancelled 1.1 H 1.0
Glucose Cancelled 123 H 121 H
Calcium Cancelled 8.8 8.5
Total Bilirubin Cancelled 1.0
AST Cancelled 21
ALT Cancelled 13
Alkaline Phosphatase Cancelled 134 H
Vital Signs:
Vital Signs
Temp Pulse Resp BP Pulse Ox
98.1 F 71 16 144/90 95
04/12/24 23:00 04/13/24 07:00 04/13/24 07:00 04/13/24 06:00 04/13/24 07:00
[2024-04-13] MEDS: LANOXIN 125 MCG PO (08:44)
[2024-04-13] MEDS: NAMENDA 5 MG PO ×2 (08:44→21:04)
[2024-04-13] MEDS: CARDIZEM CD 120 MG PO (08:45)
[2024-04-13] MEDS: PEPCID 20 MG PO ×2 (08:45→21:04)
[2024-04-13] MEDS: ELIQUIS 5 MG PO ×2 (08:45→21:03)
[2024-04-13] MEDS: LASIX 40 MG PO ×2 (08:46→21:03)
[2024-04-13] MEDS: FLOMAX 0.4 MG PO (08:46)
[2024-04-13] MEDS: LIPITOR 10 MG PO (08:47)
[2024-04-13] MEDS: ZOLOFT 25 MG PO (08:47)
[2024-04-13 08:56] LABS: Digoxin 1.4 ng/ml (0.8-2.0)
[2024-04-13 09:54] LABS: Troponin I 0.037 ng/ml
[2024-04-13] MEDS: SENOKOT 17.2 MG PO ×2 (15:02→21:04)
[2024-04-13] MEDS: MIRALAX 17 GRAMS PO (15:02)
[2024-04-13] MEDS: COLACE 100 MG PO ×2 (15:02→21:03)
--- NOTE | 2024-04-13 15:44 | PTOTSP ---
Speech Therapy Evaluation:
Pt's oropharyngeal swallow grossly WFL, however assessment limited as pt did not consume solids (pt currently on clear liquid diet). No s/sx of aspiration noted with thin liquids via straw sip/consecutive straw sip, however RN reported coughing with
solids this morning during breakfast. Pt also with chronic risk factors of dysphagia including dementia and hx of GERD. ELEMENTARY INSTRUCTIONAL COACH to f/u to assess tolerance of solids once cleared by medical team.
Recommend:
1. Continue with clear liquid diet per MD.
2. Medications as tolerated
3. General aspiration/reflux precautions
4. ST to follow
--- NOTE | 2024-04-13 17:08 | PTCARENOTE ---
Pt arrived to floor from ED, assisted to bed, telemetry placed, vital signs stable, bed alarm applied to bed, pt not oriented to place or time
--- NOTE | 2024-04-13 18:54 | PTCARENOTE ---
Enema given- milk and molasses-pt tolerated
[2024-04-13] MEDS: DESENEX/MITRAZOL/ZEASORB 1 APPLIC TOPICAL (21:02)
[2024-04-13] MEDS: MELATONIN 3 MG PO (21:04)
[2024-04-13] MEDS: NORPRAMIN 100 MG PO (22:53)
[2024-04-13] MEDS: SINEQUAN 25 MG PO (22:53)
[2024-04-14 03:00] VITALS: BP 136/67
[2024-04-14] MEDS: SYNTHROID 25 MCG PO (05:48)
[2024-04-14 06:00] VITALS: BMI 27.7
[2024-04-14 07:01] VITALS: BP 156/75
--- NOTE | 2024-04-14 08:14 | CON.CAR ---
Addendum entered and electronically signed by Imer Rubio MD 04/14/24 09:19:
I saw and examined the patient.
The EMPLOYEE COUNSELOR's note was reviewed and I agree with the note.
Comment:
88-year-old female with dementia, A-fib on Eliquis, HFpEF, and moderate to severe aortic stenosis who presents with an episode of chest pain. She does not know who her outpatient compliance project manager is. She reports that her chest pain started while
playing cards. This has happened 1 other time also while playing cards. She has never had chest pain on exertion. No syncope, lightheadedness/dizziness, or shortness of breath. Though noting that patient is a poor historian. On exam she is
comfortable appearing, has a harsh 3/6 systolic murmur, clear lungs, and no lower extremity edema. Labs are notable for stable troponin (peak 0.040), creatinine 1.0. ECG shows rate controlled atrial fibrillation with no evidence of acute ischemia.
Her chest does not appear to be consistent with ACS given short duration, not associated with exertion, nonischemic ECG and stable low-level troponins. We will repeat an echocardiogram to ensure that her aortic stenosis has not progressed to
severe. She should remain on her Eliquis, digoxin, and diltiazem for atrial fibrillation. She appears euvolemic on exam and can can continue on her home Lasix dose.
Original Note:
Consultation
Consultation Request
Date/Time Consultation Requested: 04/13/24 0812
Date/Time Consultation Performed: 04/14/24 0800
Requesting Provider: Dr. Huitron
Performing Provider: Autumn ALLISON for Dr. Rubio
Reason for Consultation: chest discomfort and aortic stenosis
Medical History
-
Chief Complaint: chest pain
History of Present Illness:
88 y/o female with dementia, Afib on Eliquis, HFpEF, GERD, hypothyroidism, dyslipidemia, anxiety/depression, and moderate to severe who is here from [place] after she reported CP per chart. Patient is not a good historian due to her dementia and does
not recall this. She denies any CP and is feeling well at the time of my assessment. Troponin 0.040. EKG with rate-controlled AFIB and mild ST/T abnormalities with no prior EKG.
Past Medical History
Past Medical History: Arrhythmias, CHF, GERD, Hypothyroidism, Valvular Disease and Psychiatric (as above)
Social History
Living: [facility]
Family History
Family History: Reviewed & Not Pertinent
Allergies / Home Medications
Allergy/AdvReac Type Severity Reaction Status Date / Time
aspirin Allergy Unknown Verified 04/12/24 23:12
codeine Allergy Unknown Verified 04/12/24 23:12
metronidazole Allergy Unknown Verified 04/12/24 23:12
sulfadiazine Allergy Unknown Verified 04/12/24 23:12
�Medication �Instructions �Recorded �Confirmed �Type
apixaban 5 mg tablet 5 mg PO BID Blood Clot 09/28/23 04/13/24 History
Prevention/Tx
atorvastatin 10 mg tablet 10 mg PO DAILY High Cholesterol 09/28/23 04/13/24 History
bisacodyl 10 mg rectal suppository 10 mg PA DAILYPRN PRN if no bm 09/28/23 04/13/24 History
aftr mom
desipramine 100 mg tablet 100 mg PO HS sleep, mental health 09/28/23 04/13/24 History
digoxin 125 mcg (0.125 mg) tablet 125 mcg PO DAILY Heart 09/28/23 04/13/24 History
Disease/Condition
diltiazem HCl 120 mg 120 mg PO DAILY Heart 09/28/23 04/13/24 History
tablet,extended release 24 hr Disease/Condition
doxepin 25 mg capsule 25 mg PO HS sleep/mental health 09/28/23 04/13/24 History
famotidine 20 mg tablet 20 mg PO BID Gastrointestinal Issue 09/28/23 04/13/24 History
furosemide 40 mg tablet 40 mg PO DAILY Fluid 09/28/23 04/13/24 History
Retention/Swelling
levothyroxine 25 mcg tablet 25 mcg PO DAILY Thyroid 09/28/23 04/13/24 History
memantine 5 mg tablet 5 mg PO BID dementia 09/28/23 04/13/24 History
sodium phosphates 19 gram-7 118 ml PA DAILYPRN PRN if no bm 09/28/23 04/13/24 History
gram/118 mL enema (Fleet Enema) aftr dulolcax
acetaminophen 500 mg tablet 1,000 mg (2 x 500 mg) PO TID 10/03/23 04/13/24 Rx
(Tylenol Extra Strength) Anti-inflammatory #60 tabs
tamsulosin 0.4 mg capsule 0.4 mg PO DAILY Urinary issue #30 10/03/23 04/13/24 Rx
caps
calcium carbonate (Calcium 600) 600 mg PO BID Supplement 04/13/24 04/13/24 History
cholecalciferol (vitamin D3) 25 50 mcg PO DAILY Supplement 04/13/24 04/13/24 History
mcg (1,000 unit) tablet (Vitamin
D3)
magnesium hydroxide 400 mg/5 mL 30 ml PO DAILYPRN PRN if no bm on 04/13/24 04/13/24 History
oral suspension (Milk of Magnesia) 3rd day
melatonin 3 mg tablet 3 mg PO HS Sleep 04/13/24 04/13/24 History
nystatin 100,000 unit/gram topical 1 applic topical BID groin 04/13/24 04/13/24 History
powder
potassium chloride 15 mEq 20 meq PO DAILY Supplement 04/13/24 04/13/24 History
tablet,extended
release(part/cryst) (Klor-Con M)
sertraline 25 mg tablet 25 mg PO DAILY Mental 04/13/24 04/13/24 History
Health/Anxiety
Review of Systems
-
Unable to obtain full review of systems at this time due to: Dementia
History Source: Other (chart)
Cardiac: Chest Pain (per chart, though patient denies)
Physical Exam
Vital Signs
Temp Pulse Resp BP Pulse Ox
97.7 F 63 14 156/75 95
04/14/24 07:01 04/14/24 07:01 04/14/24 07:01 04/14/24 07:01 04/14/24 07:01
Lab Results
04/12/24 23:13
04/13/24 07:06
Troponin I 0.037 ng/ml H* 04/13/24 09:14
Physical Exam
General: Well Developed, Well Nourished and No Apparent Distress
HEENT: Normocephalic and Anicteric
Respiratory: Clear and Non Labored Respirations
Cardiac: Irregular Rhythm and Murmur (III/ systolic murmur)
Skin: Warm and Dry
Neuro: Awake, Alert and Other (confused, forgetful- not oriented (did not know place or time, and told me she would not give out her name, though when I asked if she was Kiah Laureano, she said yes))
Psych: Calm and Confused
Impression / Plan
-
Chest discomfort:
-pert chart, as patient denies this and does not recall it (hx dementia)
-trop 0.040 at peak, flat overall. EKG with rate-controlled AFIB and mild ST/T abnormalities, with no previous EKG's.
-of note, patient with reported allergy to aspirin, but she does not know what the allergy is.
-known moderate to severe . We will update echo.
Abnormal troponin:
-etiology unclear
-peaked at 0.040
-checking echo as above
AFIB: suspect permanent
-continue Eliquis for OAC
-rate-controlled on diltiazem and digoxin
Moderate to severe :
-noted on echo 09/2023
-plan as above
HFpEF: chronic
-continue lasix
Data Reviewed
-
EKG: Tracing Personally Visualized and interpreted (AFIB 74 BPM, ST/t abnormalities)
Radiology: Report Reviewed by me (CXR: No acute disease of the chest. Tiny left pleural effusion. Much improved Mild cardiomegaly. Stable)
Medical Tests (Nuc Med, Echo etc): Report Reviewed by me (Echo 10/02/23: EF 55-60%, Moderate to severe aortic stenosis. )
Labs: Labs Reviewed by me
[2024-04-14] MEDS: FLOMAX 0.4 MG PO (09:04)
[2024-04-14] MEDS: ZOLOFT 25 MG PO (09:05)
[2024-04-14] MEDS: ELIQUIS 5 MG PO ×2 (09:05→20:46)
[2024-04-14] MEDS: CARDIZEM CD 120 MG PO (09:06)
[2024-04-14] MEDS: NAMENDA 5 MG PO ×2 (09:06→20:46)
[2024-04-14] MEDS: LIPITOR 10 MG PO (09:06)
[2024-04-14] MEDS: MIRALAX 17 GRAMS PO (09:06)
[2024-04-14] MEDS: LASIX 40 MG PO ×2 (09:07→20:46)
[2024-04-14] MEDS: LANOXIN 125 MCG PO (09:07)
[2024-04-14] MEDS: SENOKOT 17.2 MG PO ×2 (09:07→20:46)
[2024-04-14] MEDS: COLACE 100 MG PO ×2 (09:07→20:47)
[2024-04-14] MEDS: DESENEX/MITRAZOL/ZEASORB 1 APPLIC TOPICAL ×2 (09:18→20:47)
[2024-04-14] MEDS: PEPCID PO (09:31)
[2024-04-14 11:00] VITALS: BP 128/67
--- NOTE | 2024-04-14 16:49 | CM ---
Attempted to meet with patient however she was off the floor for testing. Will f/u tomorrow.
Plan: Case management will continue to follow and assist with discharge planning. Back to [facility].
--- NOTE | 2024-04-14 17:00 | W.PN.HOSP.TC ---
Today's Communication/Plan
-
Magnesium citrate
Echo done-results pending
Speech evaluation
Pur�ed diet for now
Possible discharge tomorrow if echo looks okay and patient has a bowel movement.
Assessment / Plan
Assessment / Plan
88-year-old female presented with chest pain. Poor historian from dementia
Echo 10/02/2023-normal LV size and function. EF 55 to 60%. Normal RV size and function. Mild MR. Moderate to severe . Mild TR. Pulmonary artery pressure 31 mmHg.
CAT scan of the abdomen and pelvis-gallstones, moderate fecal material throughout the colon, cystic pancreatic masses, nonobstructing bilateral renal stones, hypodense left renal lesion, mild cardiomegaly, moderate L1 compression fracture
Patient awake alert. Pleasantly confused
Cardiovascular system S1-S2 appreciated, systolic murmur at aortic area
Chest clear to auscultation
Abdomen soft and nontender
No pedal edema
# Chest pain
Continue troponin-mild elevation noted
Patient has moderate to severe therefore we requested cardiology evaluation
Echo done patient just got back. Not ready yet
# Constipation- Patient did not have good bile movements after enema. Ordered mag citrate
# Rate controlled atrial fibrillation-continue digoxin, diltiazem and Eliquis
# Chronic CHF-type unknown-on Lasix as outpatient. Continue
# Hypokalemia-resolved
# Acute kidney injury-resolving
# Dysphagia-speech evaluation
# Cystic pancreatic mass-outpatient MRI
# Nephrolithiasis
# Hyperlipidemia-continue atorvastatin
# Hypothyroidism-continue Synthroid
# Anxiety/depression-continue sertraline desipramine, doxepin
# Dementia-continue Namenda
# Moderate L1 compression fracture
# Hypodense left renal lesion-outpatient CT scan dedicated to the kidneys with and without contrast
# Gallstones
# GERD-Pepcid to be continued
# History of left mastectomy
# DVT prophylaxis-Eliquis
# DNR
[facility]ed [facility] for patient's primary and secondary contact as below-number listed here is [facility] number
Augustin Laureano - [phone]
Mehran Osorio [phone]
04/13/24-Patient's son Augustin updated with plan of care and also regarding outpatient workup for pancreatic and renal lesions.
D/W RN at bed side
Part of this note was created using voice recognition system. Occasional wrong word or��sound alike� substitutions may have inadvertently occurred due to the inherent limitations of voice recognition software. If noted kindly bring it to my
attention for correction.
Anticipated Discharge: Within 24 hours
Subjective/Interval History
-
Date of Service: April 14, 2024
Objective Data
-
Vital Signs:
Vital Signs
Temp Pulse Resp BP Pulse Ox
97.6 F 65 17 128/67 96
04/14/24 11:00 04/14/24 11:00 04/14/24 11:00 04/14/24 11:00 04/14/24 11:00
I&O
04/13/24 04/14/24 04/15/24
06:59 06:59 06:59
Intake Total 240 / 240
Balance 240 / 240
[2024-04-14] MEDS: CITROMA 300 ML PO (18:36)
[2024-04-14 19:35] VITALS: BP 116/73
[2024-04-14] MEDS: NORPRAMIN 100 MG PO (20:45)
[2024-04-14] MEDS: SINEQUAN 25 MG PO (20:46)
[2024-04-14] MEDS: MELATONIN 3 MG PO (20:46)
[2024-04-14 23:00] VITALS: BP 122/64
--- NOTE | 2024-04-14 23:17 | PTCARENOTE ---
pt with very large amt of bm - inc all over floor after bowel regimen- states she feels better- remains on medsitter- combative at times- hits staff with care
[2024-04-15] VITALS (7 sets, daily range): BP systolic 107–141; BP diastolic 62–73; BMI 28.2
[2024-04-15] MEDS: SYNTHROID 25 MCG PO (05:29)
--- NOTE | 2024-04-15 05:46 | W.PN.HOSP.TC ---
Today's Communication/Plan
-
monitor bowel movements
PT/OT as able
lidocaine patches calves
diuresis as per Cardio
Assessment / Plan
Assessment / Plan
Physical Exam
General: no acute distress, appears comfortable at this time.
Cardiovascular system S1-S2 appreciated, systolic murmur at aortic area
Chest clear to auscultation
Abdomen soft and nontender
Ext: No pedal edema, tenderness bilateral calves noted with light touch
Neuro: oriented to self only
Psych:irritable
88-year-old female presented with chest pain. Poor historian from dementia
Echo 10/02/2023-normal LV size and function. EF 55 to 60%. Normal RV size and function. Mild MR. Moderate to severe . Mild TR. Pulmonary artery pressure 31 mmHg.
CAT scan of the abdomen and pelvis-gallstones, moderate fecal material throughout the colon, cystic pancreatic masses, nonobstructing bilateral renal stones, hypodense left renal lesion, mild cardiomegaly, moderate L1 compression fracture
# Chest pain
Continue troponin-mild elevation noted peak at 0.040 since trended down
Patient has moderate to severe
repeat ECHO appreciated no significant change from prior
Cardio eval appreciated no role for TAVR
# Constipation- resolved with laxatives, since developed diarrhea, check norovirus, monitor
# Rate controlled atrial fibrillation-continue digoxin, diltiazem and Eliquis
# Acute on Chronic HFpEF
cont Lasix as per cardio
# Hypokalemia-resolved
#Mild Cr elevation suspect underlying CKD 3
Cr baseline 1.0-1.2
monitor
# Dysphagia-speech evaluation
# Cystic pancreatic mass-outpatient MRI
# Nephrolithiasis
# Hyperlipidemia-continue atorvastatin
# Hypothyroidism-continue Synthroid
# Anxiety/depression-continue sertraline desipramine, doxepin
# Dementia-continue Namenda
# Moderate L1 compression fracture
# Hypodense left renal lesion-outpatient CT scan dedicated to the kidneys with and without contrast
# Gallstones
# GERD-Pepcid to be continued
# History of left mastectomy
# DVT prophylaxis-Eliquis
# DNR
[facility] for patient's primary and secondary contact as below
Augustin Laureano - [phone]
Mehran Osorio [phone]
04/13/24-Patient's son Augustin updated with plan of care and also regarding outpatient workup for pancreatic and renal lesions.
I spent a total of 45 minutes with the patient or on the floor. More than 50% of this time involved counseling and coordination of care.
Anticipated Discharge: 24 - 48 hours
Subjective/Interval History
-
Date of Service: April 15, 2024
No acute distress resting comfortably in bed. Irritable, confused, oriented only to self. Reports tenderness pain b/l calves light touch.
Objective Data
-
Labs:
Laboratory Results
04/15/24
06:00
WBC Pending
Hgb Pending
Hct Pending
Plt Count Pending
Sodium Pending
Potassium Pending
Chloride Pending
Carbon Dioxide Pending
BUN Pending
Creatinine Pending
Glucose Pending
Calcium Pending
Vital Signs:
Vital Signs
Temp Pulse Resp BP Pulse Ox
98 F 72 18 141/73 93
04/15/24 03:30 04/15/24 03:30 04/15/24 03:30 04/15/24 03:30 04/15/24 03:30
I&O
04/13/24 04/14/24 04/15/24
06:59 06:59 06:59
Intake Total 240 / 240
Balance 240 / 240
[2024-04-15 06:36] LABS: Hematocrit 38.7 % (37.0-47.0); Hemoglobin 12.9 g/dL (12.0-16.0); Mean Corp Hgb Conc. 33.3 g/dL (33.0-37.0); Mean Corpuscular Hgb 32.1 pg (27.0-31.0); Mean Corpuscular Volume 96.3 fL (81.0-99.0); Mean Platelet Volume 10.8 fL (7.4-10.4); Platelet Count 201 10^3/uL (130-400); Red Blood Cell Count 4.02 10^6/uL (4.20-5.40); Red Cell Dist. Width 13.7 % (11.5-14.5); White Blood Cell Count 8.8 10^3/uL (4.8-10.8)
[2024-04-15 07:08] LABS: Blood Urea Nitrogen 23 mg/dl (7-17); Calcium 8.8 mg/dl (8.4-10.2); Carbon Dioxide 28 mmol/L (22-30); Chloride 106 mmol/L (98-107); Estimated Creatinine Clearance 30 ml/min; Glucose 97 mg/dl (70-99); Magnesium 2.7 mg/dl (1.6-2.3); Potassium 3.9 mmol/L (3.5-5.1); Sodium 140 mmol/L (135-145); eGFR 43.81
--- NOTE | 2024-04-15 08:04 | W.PN.CD ---
Today's Communication / Plan
-
Change furosemide to 80 mg IV daily.
Maintain current medications for AF rate control, primary prevention.
Limited role for GDMT given dementia.
There is no role for TAVR in her .
Impression / Plan
-
Impression/Plan: 88 y/o female with dementia, permanent atrial fibrillation and severe paradoxical low flow, low gradient aortic valve stenosis admitted with acute on chronic HFpEF and abnormal troponin.
#Chest discomfort/abnormal troponin
-Per chart, as patient denies this and does not recall it (hx dementia).
-Troponin peaked at 0.040, flat overall.
-This is NOT ACS. It is likely related to some volume retention and her severe aortic stenosis.
-Echo shows preserved systolic function.
#AFIB
-Suspect permanent.
-Rate control with diltiazem and digoxin.
-CHADS2-Vasc = 4 (CHF, Age x2, Female).
-Therapeutic anticoagulation with apixaban.
#Severe, paradoxical low flow, low gradient aortic valve stenosis
-Chronic.
-Peak/mean gradient 54/32 mmHg, MIAH 0.7 cm2, SVi 28.2, DVI 0.22.
-Definitely a possible culprit for her HFpEF.
-Medical management. There is no role for TAVR.
#HFpEF
-Acute on chronic.
-Change furosemide to 80 mg IV daily.
-Daily weights.
-Monitor renal function.
-Limited role for GDMT given advanced age, dementia.
#HLD
-Chronic, stable.
-Continue atorvastatin 10 mg daily.
Subjective/Interval History:
Weight is up 1.3 kg form yesterday.
CT scan shows multiple pancreatic lesions - grossly stable, and a large fecal burden.
Renal function within margin of error.
Nursing reports a large BM.
She denies any current chest pain or shortness in breath.
DATA:
CT Abdomen/Pelvis, 04/13/2024:
IMPRESSION:
Gallstones. Stable.
Moderate fecal material throughout the colon. Progressed
Cystic pancreatic masses. MRI examination recommended. Grossly stable.
Nonobstructing bilateral renal stones. Stable on the right. New on the left.
Too small to characterize hypodense left renal lesion likely benign cysts.
Mild cardiomegaly. Stable.
Moderate L1 compression fracture. Stable.
TTE, 04/14/2024:
CONCLUSIONS
Normal biventricular size and systolic function without regional wall motion
abnormality. LVEF 60-65%.
Stage II diastolic dysfunction suggestive of abnormal relaxation and increased
filling pressures.
Biatrial enlargement.
Paradoxical low-flow low gradient aortic stenosis (peak/mean gradient 54/32
mmHg, MIAH 0.7 cm2, SVi 28.2, DVI 0.22).
No evidence of pulmonary hypertension.
Compared to prior echocardiogram on 10/02/2023, there is no change.
Physical Exam
Vital Signs/Labs
Vital Signs
Temp Pulse Resp BP Pulse Ox
36.6 C 62 16 107/65 95
04/15/24 03:30 04/15/24 07:39 04/15/24 07:39 04/15/24 07:39 04/15/24 07:39
04/13/24 04/14/24 04/15/24
11:59 11:59 11:59
Actual Weight 71.3 kg 68.538 kg 69.8 kg
04/15/24 06:12
04/15/24 06:12
Magnesium 2.7 mg/dl (1.6-2.3) H 04/15/24 06:12
Digoxin 1.4 ng/ml (0.8-2.0) 04/13/24 07:06
LAB Results
04/12/24 04/12/24 04/13/24
23:13 23:56 02:03
Troponin I Cancelled 0.032 0.035 H*
04/13/24 04/13/24 04/13/24
07:06 08:40 09:14
Troponin I 0.040 H* Cancelled 0.037 H*
Physical Exam
Constitutional: No acute distress and Comfortable
EENT: Anicteric and Moist mucous membranes
Cardiovascular: Rhythm/rate is irregular, Systolic murmur present and S1S2 is normal
Respiratory: Respiratory effort normal, Lungs clear to auscul., Wheeze Absent, Crackles Absent and Rhonchi Absent
GI: Soft, Distention absent, Flat, Non tender and Normal bowel sounds
Neuro/Psych: Alert and Oriented (only to person.)
Data Reviewed
-
Date of Service: April 15, 2024
Medical Decision Making: Reviewed Test Results, Independent Historian Assessment, Test Interpretation and Review of Case with other Provider
EKG: Tracing Personally Visualized and interpreted and Report Reviewed by me
Echo: Tracing Personally Visualized and interpreted and Report Reviewed by me
X-Ray/CT/US/MRI/NUC/PET: Image Personally Visualized and interpreted and Report Reviewed by me
Labs: Labs Reviewed by me
Old Records: Reviewed
[2024-04-15] MEDS: FLOMAX 0.4 MG PO (09:36)
[2024-04-15] MEDS: LANOXIN 125 MCG PO (09:36)
[2024-04-15] MEDS: NAMENDA 5 MG PO ×2 (09:37→23:51)
[2024-04-15] MEDS: LIPITOR 10 MG PO (09:38)
[2024-04-15] MEDS: ELIQUIS 5 MG PO ×2 (09:39→23:29)
[2024-04-15] MEDS: CARDIZEM CD 120 MG PO (09:39)
[2024-04-15] MEDS: PEPCID 20 MG PO (09:39)
[2024-04-15] MEDS: LASIX 40 MG PO (09:39)
[2024-04-15] MEDS: COLACE 100 MG PO (09:40)
[2024-04-15] MEDS: ZOLOFT 25 MG PO (09:40)
[2024-04-15] MEDS: SENOKOT 17.2 MG PO (09:40)
[2024-04-15] MEDS: MIRALAX 17 GRAMS PO (09:41)
[2024-04-15] MEDS: DESENEX/MITRAZOL/ZEASORB 1 APPLIC TOPICAL ×2 (09:44→23:33)
--- NOTE | 2024-04-15 14:41 | PTOTSP ---
ST Follow-Up
Pt currently presents with clinical signs of mild oral dysphagia characterized by prolonged mastication and bolus formation as well as reduced bolus formation requiring liquid aid for bolus formation and oral clearance. Pt also exhibits some
eructation with ingestion of liquids, which could be indicative of esophageal dysfunction.
Recommendations:
- UPGRADE pt's diet to SOFT BITE SIZED SOLIDS and continue with thin liquids, meds whole with puree.
- Aspiration precautions: HOB upright for all PO intake and for at least 60 minutes following PO intake; small bites/sips; alternate bites/sips.
- UTILITIES ESTIMATOR AND DRAFTER to f/u re: diet tolerance and to continue to trial diet upgrades.
[2024-04-15] MEDS: LASIX 80 MG IV (15:04)
[2024-04-15] MEDS: LIDOCAINE 4% PATCH 2 PATCH TOPICAL (15:06)
--- NOTE | 2024-04-15 15:32 | CM ---
Placed a call to Ginger in admissions at [facility] where patient resides. Ginger stated that patient is confused at baseline. She is an assist of 1 for all ADLs, personal care, dressing and bathing. She is incontinent of bowel and bladder. She
barely ambulates and is primarily in a w/c. She also uses a walker for short distances.
[facility] letter relayed to [facility] staff.
In chart.
Bed hold confirmed. Patient can return upon medical clearance.
Plan: Case management will continue to follow and assist with discharge planning. Back to [facility] when stable for discharge.
[2024-04-15] MEDS: SENOKOT PO (23:29)
[2024-04-15] MEDS: COLACE PO (23:30)
[2024-04-15] MEDS: NORPRAMIN 100 MG PO (23:30)
[2024-04-15] MEDS: MELATONIN 3 MG PO (23:51)
[2024-04-15] MEDS: SINEQUAN 25 MG PO (23:52)
[2024-04-16] VITALS (8 sets, daily range): BP systolic 113–135; BP diastolic 62–84; BMI 28.0
[2024-04-16] MEDS: SYNTHROID 25 MCG PO (05:48)
--- NOTE | 2024-04-16 07:00 | W.PN.HOSP.TC ---
Today's Communication/Plan
-
diuresis as per cardio
Assessment / Plan
Assessment / Plan
Physical Exam
General: no acute distress, appears comfortable at this time.
Cardiovascular system S1-S2 appreciated, systolic murmur at aortic area
Chest clear to auscultation
Abdomen soft and nontender
Ext: No pedal edema, tenderness bilateral calves noted with light touch
Neuro: oriented to self only
Psych:irritable
88-year-old female presented with chest pain. Poor historian from dementia
Echo 10/02/2023-normal LV size and function. EF 55 to 60%. Normal RV size and function. Mild MR. Moderate to severe . Mild TR. Pulmonary artery pressure 31 mmHg.
CAT scan of the abdomen and pelvis-gallstones, moderate fecal material throughout the colon, cystic pancreatic masses, nonobstructing bilateral renal stones, hypodense left renal lesion, mild cardiomegaly, moderate L1 compression fracture
# Chest pain
Continue troponin-mild elevation noted peak at 0.040 since trended down
Patient has moderate to severe
repeat ECHO appreciated no significant change from prior
Cardio eval appreciated no role for TAVR
# Constipation- resolved with laxatives, since developed diarrhea, check norovirus, monitor
# Rate controlled atrial fibrillation-continue digoxin, diltiazem and Eliquis
# Acute on Chronic HFpEF
cont Lasix as per cardio
# Hypokalemia-resolved
#Mild Cr elevation suspect underlying CKD 3
Cr baseline 1.0-1.2
monitor
# Dysphagia-speech evaluation appreciated
#Lower ext calf pain/tenderness b/l
improved with lidocaine patches
# Cystic pancreatic mass-outpatient MRI
# Nephrolithiasis
# Hyperlipidemia-continue atorvastatin
# Hypothyroidism-continue Synthroid
# Anxiety/depression-continue sertraline desipramine, doxepin
# Dementia-continue Namenda
# Moderate L1 compression fracture
# Hypodense left renal lesion-outpatient CT scan dedicated to the kidneys with and without contrast
# Gallstones
# GERD-Pepcid to be continued
# History of left mastectomy
# DVT prophylaxis-Eliquis
# DNR
[facility] for patient's primary and secondary contact as below
Augustin Laureano - [phone]
Mehran Osorio [phone]
04/13/24-Patient's son Augustin updated with plan of care and also regarding outpatient workup for pancreatic and renal lesions.
I spent a total of 40 minutes with the patient or on the floor. More than 50% of this time involved counseling and coordination of care.
Anticipated Discharge: Within 24 hours
Subjective/Interval History
-
Date of Service: April 16, 2024
No acute distress sitting up comfortably in chair. Reports lower ext's pain improved with Lidocaine patches.
Objective Data
-
Labs:
Laboratory Results
04/16/24
06:00
WBC Pending
Hgb Pending
Hct Pending
Plt Count Pending
Sodium Pending
Potassium Pending
Chloride Pending
Carbon Dioxide Pending
BUN Pending
Creatinine Pending
Glucose Pending
Calcium Pending
Vital Signs:
Vital Signs
Temp Pulse Resp BP Pulse Ox
98.9 F 77 16 132/74 93
04/16/24 03:30 04/16/24 03:30 04/16/24 03:30 04/16/24 03:30 04/16/24 03:30
I&O
04/15/24 04/16/24 04/17/24
06:59 06:59 06:59
Intake Total 240 / 240
Balance 240 / 240
[2024-04-16 07:27] LABS: Hematocrit 40.5 % (37.0-47.0); Hemoglobin 13.2 g/dL (12.0-16.0); Mean Corp Hgb Conc. 32.6 g/dL (33.0-37.0); Mean Corpuscular Hgb 31.2 pg (27.0-31.0); Mean Corpuscular Volume 95.7 fL (81.0-99.0); Mean Platelet Volume 10.9 fL (7.4-10.4); Platelet Count 182 10^3/uL (130-400); Red Blood Cell Count 4.23 10^6/uL (4.20-5.40); Red Cell Dist. Width 13.9 % (11.5-14.5)
--- NOTE | 2024-04-16 07:31 | W.PN.CD ---
Today's Communication / Plan
-
Maintain furosemide 80 mg IV today, convert to 80 mg PO tomorrow.
Disposition planning.
Impression / Plan
-
Impression/Plan: 88 y/o female with dementia, permanent atrial fibrillation and severe paradoxical low flow, low gradient aortic valve stenosis admitted with acute on chronic HFpEF and abnormal troponin.
#HFpEF
-Acute on chronic.
-Daily weights.
-Monitor renal function.
-Limited role for GDMT given advanced age, dementia.
-Maintain furosemide 80 mg IV today, convert to furosemide 80 mg PO tomorrow.
#Chest discomfort/abnormal troponin
-Per chart, as patient denies this and does not recall it (hx dementia).
-Troponin peaked at 0.040, flat overall.
-This is NOT ACS. It is likely related to some volume retention and her severe aortic stenosis.
-Echo shows preserved systolic function.
#AFIB
-Suspect permanent.
-Rate control with diltiazem and digoxin.
-CHADS2-Vasc = 4 (CHF, Age x2, Female).
-Therapeutic anticoagulation with apixaban.
#Severe, paradoxical low flow, low gradient aortic valve stenosis
-Chronic.
-Peak/mean gradient 54/32 mmHg, MIAH 0.7 cm2, SVi 28.2, DVI 0.22.
-Definitely a possible culprit for her HFpEF.
-Medical management. There is no role for TAVR.
#Chest discomfort/abnormal troponin
-Per chart, as patient denies this and does not recall it (hx dementia).
-Troponin peaked at 0.040, flat overall.
-This is NOT ACS. It is likely related to some volume retention and her severe aortic stenosis.
-Echo shows preserved systolic function.
#HLD
-Chronic, stable.
-Continue atorvastatin 10 mg daily.
#Pancreatic masses
-Chronic, grossly stable on recent CT abdomen compared to prior studies.
#Nephrolithiasis
#Dementia
Subjective/Interval History:
Weight down 0.5 kg.
BP stable.
Labs pending this morning.
DATA:
CT Abdomen/Pelvis, 04/13/2024:
IMPRESSION:
Gallstones. Stable.
Moderate fecal material throughout the colon. Progressed
Cystic pancreatic masses. MRI examination recommended. Grossly stable.
Nonobstructing bilateral renal stones. Stable on the right. New on the left.
Too small to characterize hypodense left renal lesion likely benign cysts.
Mild cardiomegaly. Stable.
Moderate L1 compression fracture. Stable.
TTE, 04/14/2024:
CONCLUSIONS
Normal biventricular size and systolic function without regional wall motion
abnormality. LVEF 60-65%.
Stage II diastolic dysfunction suggestive of abnormal relaxation and increased
filling pressures.
Biatrial enlargement.
Paradoxical low-flow low gradient aortic stenosis (peak/mean gradient 54/32
mmHg, MIAH 0.7 cm2, SVi 28.2, DVI 0.22).
No evidence of pulmonary hypertension.
Compared to prior echocardiogram on 10/02/2023, there is no change.
Physical Exam
Vital Signs/Labs
Vital Signs
Temp Pulse Resp BP Pulse Ox
37.2 C 77 16 132/74 93
04/16/24 03:30 04/16/24 03:30 04/16/24 03:30 04/16/24 03:30 04/16/24 03:30
04/14/24 04/15/24 04/16/24
11:59 11:59 11:59
Actual Weight 68.538 kg 69.8 kg 69.309 kg
04/16/24 07:02
Magnesium 2.7 mg/dl (1.6-2.3) H 04/15/24 06:12
Digoxin 1.4 ng/ml (0.8-2.0) 04/13/24 07:06
LAB Results
04/13/24 04/13/24 04/13/24
07:06 08:40 09:14
Troponin I 0.040 H* Cancelled 0.037 H*
Physical Exam
Constitutional: No acute distress and Comfortable
EENT: Anicteric and Moist mucous membranes
Cardiovascular: Rhythm/rate is irregular, Pedal edema present, JVD present, Systolic murmur present and S1S2 is normal
Respiratory: Respiratory effort normal, Lungs clear to auscul., Wheeze Absent, Crackles Absent and Rhonchi Absent
GI: Soft, Distention absent, Flat, Non tender and Normal bowel sounds
Neuro/Psych: Alert and Oriented (to person only.)
Data Reviewed
-
Date of Service: April 16, 2024
Medical Decision Making: Reviewed Test Results, Independent Historian Assessment, Test Interpretation and Review of Case with other Provider
EKG: Tracing Personally Visualized and interpreted and Report Reviewed by me
Echo: Tracing Personally Visualized and interpreted and Report Reviewed by me
X-Ray/CT/US/MRI/NUC/PET: Image Personally Visualized and interpreted and Report Reviewed by me
Labs: Labs Reviewed by me
Old Records: Reviewed
[2024-04-16 08:11] LABS: Blood Urea Nitrogen 23 mg/dl (7-17); Calcium 8.3 mg/dl (8.4-10.2); Carbon Dioxide 26 mmol/L (22-30); Chloride 103 mmol/L (98-107); Estimated Creatinine Clearance 30 ml/min; Glucose 93 mg/dl (70-99); Magnesium 2.4 mg/dl (1.6-2.3); Phosphorus 3.8 mg/dl (2.5-4.5); Potassium 3.5 mmol/L (3.5-5.1); Sodium 138 mmol/L (135-145); eGFR 43.81
[2024-04-16] MEDS: COLACE 100 MG PO ×2 (09:46→23:05)
[2024-04-16] MEDS: PEPCID 20 MG PO (09:46)
[2024-04-16] MEDS: LANOXIN 125 MCG PO (09:46)
[2024-04-16] MEDS: ZOLOFT 25 MG PO (09:47)
[2024-04-16] MEDS: ELIQUIS 5 MG PO ×2 (09:47→23:10)
[2024-04-16] MEDS: CARDIZEM CD 120 MG PO (09:47)
[2024-04-16] MEDS: FLOMAX 0.4 MG PO (09:47)
[2024-04-16] MEDS: LIPITOR 10 MG PO (09:47)
[2024-04-16] MEDS: DESENEX/MITRAZOL/ZEASORB 1 APPLIC TOPICAL ×2 (09:47→23:15)
[2024-04-16] MEDS: SENOKOT 17.2 MG PO ×2 (09:47→23:06)
[2024-04-16] MEDS: NAMENDA 5 MG PO ×2 (09:47→23:05)
[2024-04-16] MEDS: LASIX 80 MG IV (09:48)
[2024-04-16] MEDS: LIDOCAINE 4% PATCH 2 PATCH TOPICAL (09:48)
[2024-04-16] MEDS: MIRALAX PO ×2 (09:48→10:02)
[2024-04-16] MEDS: MELATONIN 3 MG PO (23:06)
[2024-04-16] MEDS: SINEQUAN 25 MG PO (23:10)
[2024-04-16] MEDS: NORPRAMIN 100 MG PO (23:13)
[2024-04-17] VITALS (7 sets, daily range): BP systolic 118–141; BP diastolic 59–84; BMI 27.7
[2024-04-17 06:38] LABS: Hematocrit 38.3 % (37.0-47.0); Hemoglobin 12.7 g/dL (12.0-16.0); Mean Corp Hgb Conc. 33.2 g/dL (33.0-37.0); Mean Corpuscular Hgb 31.7 pg (27.0-31.0); Mean Corpuscular Volume 95.5 fL (81.0-99.0); Mean Platelet Volume 10.8 fL (7.4-10.4); Platelet Count 169 10^3/uL (130-400); Red Blood Cell Count 4.01 10^6/uL (4.20-5.40); Red Cell Dist. Width 13.7 % (11.5-14.5); White Blood Cell Count 9.3 10^3/uL (4.8-10.8)
[2024-04-17] MEDS: SYNTHROID 25 MCG PO (06:41)
--- NOTE | 2024-04-17 06:59 | W.PN.CD ---
Today's Communication / Plan
-
Convert furosemide to 80 mg PO daily.
Increase furosemide to 80 mg PO BID PRN weight gain (1-3 lbs/24 hours, 3-5 lbs/week).
Limited role for GDMT escalation.
Given severe , GOC discussion appropriate. I tried to reach out to family, only to find no contact information on the chart.
Discharge planning.
Thank you for this interesting consult. Signing off. Please call with questions.
Impression / Plan
-
Impression/Plan: 88 y/o female with dementia, permanent atrial fibrillation and severe paradoxical low flow, low gradient aortic valve stenosis admitted with acute on chronic HFpEF and abnormal troponin.
#HFpEF
-Acute on chronic.
-Daily weights.
-She appears euvolemic on exam.
-Limited role for GDMT given advanced age, dementia.
-Convert to furosemide 80 mg PO daily. Increase to 80 mg PRN weight gain of 1-3 lbs/24 hours, 3-5 lbs/week.
#Chest discomfort/abnormal troponin
-Per chart, as patient denies this and does not recall it (hx dementia).
-Troponin peaked at 0.040, flat overall.
-This is NOT ACS. It is likely related to some volume retention and her severe aortic stenosis.
-Echo shows preserved systolic function.
#AFIB
-Suspect permanent.
-Rate control with diltiazem and digoxin.
-CHADS2-Vasc = 4 (CHF, Age x2, Female).
-Therapeutic anticoagulation with apixaban.
#Severe, paradoxical low flow, low gradient aortic valve stenosis
-Chronic.
-Peak/mean gradient 54/32 mmHg, MIHA 0.7 cm2, SVi 28.2, DVI 0.22.
-Definitely a possible culprit for her HFpEF.
-Medical management. There is no role for TAVR.
#HLD
-Chronic, stable.
-Continue atorvastatin 10 mg daily.
#Pancreatic masses
-Chronic, grossly stable on recent CT abdomen compared to prior studies.
#Nephrolithiasis
#Dementia
Subjective/Interval History:
Weight down 0.5 kg.
BP stable.
Labs pending this morning.
DATA:
CT Abdomen/Pelvis, 04/13/2024:
IMPRESSION:
Gallstones. Stable.
Moderate fecal material throughout the colon. Progressed
Cystic pancreatic masses. MRI examination recommended. Grossly stable.
Nonobstructing bilateral renal stones. Stable on the right. New on the left.
Too small to characterize hypodense left renal lesion likely benign cysts.
Mild cardiomegaly. Stable.
Moderate L1 compression fracture. Stable.
TTE, 04/14/2024:
CONCLUSIONS
Normal biventricular size and systolic function without regional wall motion
abnormality. LVEF 60-65%.
Stage II diastolic dysfunction suggestive of abnormal relaxation and increased
filling pressures.
Biatrial enlargement.
Paradoxical low-flow low gradient aortic stenosis (peak/mean gradient 54/32
mmHg, MIAH 0.7 cm2, SVi 28.2, DVI 0.22).
No evidence of pulmonary hypertension.
Compared to prior echocardiogram on 10/02/2023, there is no change.
Physical Exam
Vital Signs/Labs
Vital Signs
Temp Pulse Resp BP Pulse Ox
36.7 C 64 16 138/63 94
04/17/24 03:47 04/17/24 03:47 04/17/24 03:47 04/17/24 03:47 04/17/24 03:47
04/15/24 04/16/24 04/17/24
11:59 11:59 11:59
Actual Weight 69.8 kg 69.309 kg
04/17/24 06:28
Magnesium 2.4 mg/dl (1.6-2.3) H 04/16/24 07:02
Digoxin 1.4 ng/ml (0.8-2.0) 04/13/24 07:06
Physical Exam
Constitutional: No acute distress and Comfortable
EENT: Anicteric and Moist mucous membranes
Cardiovascular: Pedal edema is absent, JVD pressure is normal, Rhythm/rate is irregular and Systolic murmur present
Respiratory: Respiratory effort normal, Lungs clear to auscul., Wheeze Absent, Crackles Absent and Rhonchi Absent
GI: Soft, Distention absent, Flat, Non tender and Normal bowel sounds
Neuro/Psych: Alert and Oriented (to person only.)
Data Reviewed
-
Date of Service: April 17, 2024
Medical Decision Making: Reviewed Test Results and Test Interpretation
EKG: Tracing Personally Visualized and interpreted and Report Reviewed by me
Echo: Report Reviewed by me
X-Ray/CT/US/MRI/NUC/PET: Image Personally Visualized and interpreted and Report Reviewed by me
Labs: Labs Reviewed by me
Old Records: Reviewed
--- NOTE | 2024-04-17 07:06 | W.PN.HOSP.TC ---
Today's Communication/Plan
-
contact precautions
monitor bowel movements for resolution diarrhea
IV diuresis converted to PO as per Cardio
monitor renal function
eventual discharge back to [facility] when diarrhea free
Assessment / Plan
Assessment / Plan
Physical Exam
General: no acute distress, appears comfortable at this time.
Cardiovascular system S1-S2 appreciated, systolic murmur at aortic area
Chest clear to auscultation
Abdomen soft and nontender
Ext: No pedal edema, tenderness bilateral calves noted with light touch
Neuro: oriented to self only
Psych:irritable
88-year-old female presented with chest pain. Poor historian from dementia
Echo 10/02/2023-normal LV size and function. EF 55 to 60%. Normal RV size and function. Mild MR. Moderate to severe . Mild TR. Pulmonary artery pressure 31 mmHg.
CAT scan of the abdomen and pelvis-gallstones, moderate fecal material throughout the colon, cystic pancreatic masses, nonobstructing bilateral renal stones, hypodense left renal lesion, mild cardiomegaly, moderate L1 compression fracture
# Chest pain resolved
Continue troponin-mild elevation noted peak at 0.040 since trended down
Patient has moderate to severe
repeat ECHO appreciated no significant change from prior
Cardio eval appreciated chest pain/discomfort likely related to volume retention and severe aortic stenosis, no role for TAVR
#Norovirus
# Constipation- resolved with laxatives
since developed diarrhea
checked for Norovirus and was found to be positive.
Diarrhea resolving
maintain contact precautions
# Rate controlled atrial fibrillation-continue digoxin, diltiazem and Eliquis
# Acute on Chronic HFpEF
cont Lasix as per cardio since converted from IV to PO
# Hypokalemia-resolved
#Mild Cr elevation suspect underlying CKD 3
Cr baseline 1.0-1.2
monitor
# Dysphagia-speech evaluation appreciated
#Lower ext calf pain/tenderness b/l
improved with lidocaine patches
# Cystic pancreatic mass-outpatient MRI
# Nephrolithiasis
# Hyperlipidemia-continue atorvastatin
# Hypothyroidism-continue Synthroid
# Anxiety/depression-continue sertraline desipramine, doxepin
# Dementia-continue Namenda
# Moderate L1 compression fracture
# Hypodense left renal lesion-outpatient CT scan dedicated to the kidneys with and without contrast
# Gallstones
# GERD-Pepcid to be continued
# History of left mastectomy
# DVT prophylaxis-Eliquis
# DNR
[facility] for patient's primary and secondary contact as below
Augustin Laureano - [phone]
Mehran Escobarl [phone]
04/13/24-Patient's son Augustin updated with plan of care and also regarding outpatient workup for pancreatic and renal lesions.
I spent a total of 45 minutes with the patient or on the floor. More than 50% of this time involved counseling and coordination of care.
Anticipated Discharge: 24 - 48 hours
Subjective/Interval History
-
Date of Service: April 17, 2024
Objective Data
-
Labs:
Laboratory Results
04/17/24
06:28
WBC 9.3
Hgb 12.7
Hct 38.3
Plt Count 169
Sodium Pending
Potassium Pending
Chloride Pending
Carbon Dioxide Pending
BUN Pending
Creatinine Pending
Glucose Pending
Calcium Pending
Vital Signs:
Vital Signs
Temp Pulse Resp BP Pulse Ox
98.1 F 64 16 138/63 94
04/17/24 03:47 04/17/24 03:47 04/17/24 03:47 04/17/24 03:47 04/17/24 03:47
I&O
04/16/24 04/17/24 04/18/24
06:59 06:59 06:59
Intake Total 240 / 240 2340 / 2340
Balance 240 / 240 2340 / 2340
[2024-04-17 07:16] LABS: Blood Urea Nitrogen 27 mg/dl (7-17); Calcium 8.4 mg/dl (8.4-10.2); Carbon Dioxide 28 mmol/L (22-30); Chloride 100 mmol/L (98-107); Estimated Creatinine Clearance 28 ml/min; Glucose 96 mg/dl (70-99); Magnesium 2.2 mg/dl (1.6-2.3); Phosphorus 4.6 mg/dl (2.5-4.5); Potassium 3.3 mmol/L (3.5-5.1); Sodium 137 mmol/L (135-145)
[2024-04-17] MEDS: LASIX 80 MG PO (09:17)
[2024-04-17] MEDS: COLACE 100 MG PO (09:18)
[2024-04-17] MEDS: CARDIZEM CD 120 MG PO (09:18)
[2024-04-17] MEDS: NAMENDA 5 MG PO ×2 (09:18→22:27)
[2024-04-17] MEDS: ELIQUIS 5 MG PO ×2 (09:18→22:26)
[2024-04-17] MEDS: LIPITOR 10 MG PO (09:18)
[2024-04-17] MEDS: ZOLOFT 25 MG PO (09:18)
[2024-04-17] MEDS: FLOMAX 0.4 MG PO (09:18)
[2024-04-17] MEDS: LANOXIN 125 MCG PO (09:18)
[2024-04-17] MEDS: PEPCID 20 MG PO (09:18)
[2024-04-17] MEDS: DESENEX/MITRAZOL/ZEASORB 1 APPLIC TOPICAL ×2 (09:19→22:41)
[2024-04-17] MEDS: LIDOCAINE 4% PATCH 2 PATCH TOPICAL (09:19)
[2024-04-17] MEDS: SENOKOT 17.2 MG PO (09:19)
[2024-04-17] MEDS: MIRALAX 17 GRAMS PO (09:19)
[2024-04-17] MEDS: LASIX IV (09:24)
--- NOTE | 2024-04-17 11:46 | PN.CDI ---
CDI
- -
CDI:
Physician Documentation Request
Admit Date: 04/15/24 13:41
Dear Doctor Gina,
Clinical Indicators:
Patient admitted with chest pain.
04/15 Cardiology PN, '-This is NOT ACS. It is likely related to some volume retention and her severe aortic stenosis.'
04/16 PN, 'Chest pain, Continue troponin-mild elevation noted peak at 0.040 since trended down Patient has moderate to severe '
Please clarify the relationship between these conditions:
Yes, chest pain is related to/associated with/due to aortic stenosis.
No, chest pain is not related to/associated with/due to aortic stenosis but it is due to ___. (Please specify)
Other, please specify
Use of terms such as suspected, likely, concern for, or probable (associated with a specific diagnosis that is being evaluated, monitored, or treated as if it exists) are acceptable and can be coded in the inpatient setting, when documented at the
time of discharge.
Thank you,
Alicia Pulido RN BSN
CDI Specialist
available via tiger text
Please use your independent medical judgment in providing your response.
--- NOTE | 2024-04-17 14:25 | CM ---
CM continues to follow to coordinate pt's return to [facility] when medically stable. No needs at this time.
[2024-04-17] MEDS: KCL 40 MEQ PO (15:27)
[2024-04-17] MEDS: COLACE PO (22:24)
[2024-04-17] MEDS: NORPRAMIN 100 MG PO (22:25)
[2024-04-17] MEDS: SENOKOT PO (22:26)
[2024-04-17] MEDS: MELATONIN 3 MG PO (22:27)
[2024-04-17] MEDS: SINEQUAN 25 MG PO (22:27)
[2024-04-18] VITALS (7 sets, daily range): BP systolic 124–160; BP diastolic 61–68; PULSE 55; O2SAT 96; BMI 28.0
--- NOTE | 2024-04-18 03:20 | PTCARENOTE ---
Pt continues to require bed alarm and med sitter.Pt can be impulsive,does not always follow verbal redirection and makes attempts to get OOB.Pt seen this shift talking to people not present in the room.Pt agitated when completing pt care.Pt does not
like to be touched at intervals while care is being administered.Pt will yell,'Your hurting me',even if you just take her vital signs.
[2024-04-18] MEDS: SYNTHROID 25 MCG PO (06:15)
[2024-04-18 06:34] LABS: Hematocrit 37.8 % (37.0-47.0); Hemoglobin 12.5 g/dL (12.0-16.0); Mean Corp Hgb Conc. 33.1 g/dL (33.0-37.0); Mean Corpuscular Hgb 31.7 pg (27.0-31.0); Mean Corpuscular Volume 95.9 fL (81.0-99.0); Mean Platelet Volume 11.2 fL (7.4-10.4); Platelet Count 174 10^3/uL (130-400); Red Blood Cell Count 3.94 10^6/uL (4.20-5.40); Red Cell Dist. Width 13.5 % (11.5-14.5); White Blood Cell Count 9.5 10^3/uL (4.8-10.8)
[2024-04-18 06:58] LABS: Blood Urea Nitrogen 30 mg/dl (7-17); Calcium 8.4 mg/dl (8.4-10.2); Carbon Dioxide 25 mmol/L (22-30); Chloride 101 mmol/L (98-107); Estimated Creatinine Clearance 33 ml/min; Glucose 101 mg/dl (70-99); Magnesium 2.2 mg/dl (1.6-2.3); Phosphorus 3.7 mg/dl (2.5-4.5); Potassium 3.8 mmol/L (3.5-5.1); Sodium 137 mmol/L (135-145); eGFR 48.63
[2024-04-18] MEDS: LIDOCAINE 4% PATCH 2 PATCH TOPICAL (08:51)
[2024-04-18] MEDS: CARDIZEM CD 120 MG PO (08:52)
[2024-04-18] MEDS: MIRALAX 17 GRAMS PO (08:52)
[2024-04-18] MEDS: NAMENDA 5 MG PO ×2 (08:52→21:52)
[2024-04-18] MEDS: LIPITOR 10 MG PO (08:52)
[2024-04-18] MEDS: LANOXIN 125 MCG PO (08:53)
[2024-04-18] MEDS: COLACE PO ×2 (08:53→21:51)
[2024-04-18] MEDS: LASIX 80 MG PO (08:53)
[2024-04-18] MEDS: ZOLOFT 25 MG PO (08:53)
[2024-04-18] MEDS: KCL 40 MEQ PO (08:54)
[2024-04-18] MEDS: FLOMAX 0.4 MG PO (08:54)
[2024-04-18] MEDS: ELIQUIS 5 MG PO ×2 (08:54→21:51)
[2024-04-18] MEDS: SENOKOT PO ×2 (08:55→21:52)
[2024-04-18] MEDS: PEPCID 20 MG PO (08:55)
--- NOTE | 2024-04-18 11:20 | W.PN.HOSP.TC ---
Today's Communication/Plan
-
Discharge planning back to [facility] when diarrhea resolves
ST/PT/OT
Assessment / Plan
Assessment / Plan
Physical Exam
General: no acute distress, appears comfortable at this time.
Cardiovascular system S1-S2 appreciated, systolic murmur at aortic area
Chest clear to auscultation
Abdomen soft and nontender
Ext: No pedal edema, tenderness bilateral calves noted with light touch
Neuro: oriented to self only
Psych:irritable
88-year-old female presented with chest pain. Poor historian from dementia
Echo 10/02/2023-normal LV size and function. EF 55 to 60%. Normal RV size and function. Mild MR. Moderate to severe . Mild TR. Pulmonary artery pressure 31 mmHg.
CAT scan of the abdomen and pelvis-gallstones, moderate fecal material throughout the colon, cystic pancreatic masses, nonobstructing bilateral renal stones, hypodense left renal lesion, mild cardiomegaly, moderate L1 compression fracture
# Chest pain resolved
Continue troponin-mild elevation noted peak at 0.040 since trended down
Patient has moderate to severe
repeat ECHO appreciated no significant change from prior
Cardio eval appreciated chest pain/discomfort likely related to volume retention and severe aortic stenosis, no role for TAVR
#Norovirus
# Constipation- resolved with laxatives
since developed diarrhea
checked for Norovirus and was found to be positive.
Diarrhea resolving
maintain contact precautions
# Rate controlled atrial fibrillation-continue digoxin, diltiazem and Eliquis
# Acute on Chronic HFpEF
cont Lasix as per cardio since converted from IV to PO
# Hypokalemia-resolved
#Mild Cr elevation suspect underlying CKD 3
Cr baseline 1.0-1.2
monitor
# Dysphagia-speech evaluation appreciated
#Lower ext calf pain/tenderness b/l
likely musculoskeletal pain
improved with lidocaine patches
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
-continue Namenda
# Cystic pancreatic mass-outpatient MRI
# Nephrolithiasis
# Hyperlipidemia-continue atorvastatin
# Hypothyroidism-continue Synthroid
# Anxiety/depression-continue sertraline desipramine, doxepin
# Moderate L1 compression fracture
# Hypodense left renal lesion-outpatient CT scan dedicated to the kidneys with and without contrast
# Gallstones
# GERD-Pepcid to be continued
# History of left mastectomy
# DVT prophylaxis-Eliquis
# DNR
[facility] for patient's primary and secondary contact as below
Augustin Laureano - [phone]
Mehran Escobarl [phone]
Patient's son Augustin updated with plan of care and also regarding outpatient workup for pancreatic and renal lesions.
Discussed with patient's son Augustin
I spent a total of 45 minutes with the patient or on the floor. More than 50% of this time involved counseling and coordination of care.
Anticipated Discharge: Within 24 hours
Subjective/Interval History
-
Date of Service: April 18, 2024
no acute distress, appears comfortable.
Objective Data
-
Labs:
Laboratory Results
04/18/24
06:17
WBC 9.5
Hgb 12.5
Hct 37.8
Plt Count 174
Sodium 137
Potassium 3.8
Chloride 101
Carbon Dioxide 25
BUN 30 H
Creatinine 1.1 H
Glucose 101 H
Calcium 8.4
Vital Signs:
Vital Signs
Temp Pulse Resp BP Pulse Ox
97.5 F 64 16 160/63 96
04/18/24 07:40 04/18/24 08:53 04/18/24 07:40 04/18/24 07:40 04/18/24 07:40
I&O
04/17/24 04/18/24 04/19/24
06:59 06:59 06:59
Intake Total 2340 / 2340 780 / 780
Balance 2340 / 2340 780 / 780
[2024-04-18] MEDS: DESENEX/MITRAZOL/ZEASORB 1 APPLIC TOPICAL ×2 (11:23→21:52)
--- NOTE | 2024-04-18 14:17 | PN.CDI ---
CDI
- -
CDI:
Physician Documentation Request
Admit Date: 04/15/24 13:41
Dear Doctor Gina,
Clinical Indicators:
Patient admitted with chest pain.
04/17 PN, 'Dementia-continue Namenda'
04/18 RN note, 'Pt continues to require bed alarm and med sitter.Pt can be impulsive,does not always follow verbal redirection and makes attempts to get OOB....Pt agitated when completing pt care'
Based on the above, could you clarify in the progress notes, the appropriate diagnosis, if significant, that supports the above abnormalities and additional evaluation, monitoring and/or treatment rendered:
Dementia with agitation/behavior disturbance
Dementia only
Other
Use of terms such as suspected, likely, concern for, or probable (associated with a specific diagnosis that is being evaluated, monitored, or treated as if it exists) are acceptable and can be coded in the inpatient setting, when documented at the
time of discharge.
Thank you,
Alicia Pulido RN BSN
CDI Specialist
available via tiger text
Please use your independent medical judgment in providing your response.
[2024-04-18] MEDS: NORPRAMIN 100 MG PO (21:51)
[2024-04-18] MEDS: MELATONIN 3 MG PO (21:52)
[2024-04-18] MEDS: SINEQUAN 25 MG PO (21:52)
[2024-04-19 03:45] VITALS: BP 126/63
[2024-04-19] MEDS: SYNTHROID 25 MCG PO (04:48)
[2024-04-19 06:00] VITALS: BMI 27.7
[2024-04-19 06:44] LABS: Hematocrit 38.8 % (37.0-47.0); Hemoglobin 12.9 g/dL (12.0-16.0); Mean Corp Hgb Conc. 33.2 g/dL (33.0-37.0); Mean Corpuscular Hgb 31.9 pg (27.0-31.0); Mean Corpuscular Volume 95.8 fL (81.0-99.0); Mean Platelet Volume 11.5 fL (7.4-10.4); Platelet Count 176 10^3/uL (130-400); Red Blood Cell Count 4.05 10^6/uL (4.20-5.40); Red Cell Dist. Width 13.5 % (11.5-14.5); White Blood Cell Count 8.1 10^3/uL (4.8-10.8)
[2024-04-19 07:00] VITALS: BP 113/67
[2024-04-19 07:06] LABS: Blood Urea Nitrogen 26 mg/dl (7-17); Calcium 8.4 mg/dl (8.4-10.2); Carbon Dioxide 28 mmol/L (22-30); Chloride 102 mmol/L (98-107); Estimated Creatinine Clearance 33 ml/min; Glucose 90 mg/dl (70-99); Magnesium 2.2 mg/dl (1.6-2.3); Phosphorus 3.6 mg/dl (2.5-4.5); Potassium 3.8 mmol/L (3.5-5.1); Sodium 137 mmol/L (135-145); eGFR 48.63
--- NOTE | 2024-04-19 07:19 | W.PN.HOSP.TC ---
Today's Communication/Plan
-
discharge
Assessment / Plan
Assessment / Plan
Physical Exam
General: no acute distress, appears comfortable at this time.
Cardiovascular system S1-S2 appreciated, systolic murmur at aortic area
Chest clear to auscultation
Abdomen soft and nontender
Ext: No pedal edema
Neuro: oriented to self only
Psych:irritable
88-year-old female presented with chest pain. Poor historian from dementia
Echo 10/02/2023-normal LV size and function. EF 55 to 60%. Normal RV size and function. Mild MR. Moderate to severe . Mild TR. Pulmonary artery pressure 31 mmHg.
CAT scan of the abdomen and pelvis-gallstones, moderate fecal material throughout the colon, cystic pancreatic masses, nonobstructing bilateral renal stones, hypodense left renal lesion, mild cardiomegaly, moderate L1 compression fracture
# Chest pain resolved
Continue troponin-mild elevation noted peak at 0.040 since trended down
Patient has moderate to severe
repeat ECHO appreciated no significant change from prior
Cardio eval appreciated chest pain/discomfort likely related to volume retention and severe aortic stenosis, no role for TAVR
# Constipation- resolved with laxatives
#Norovirus
developed diarrhea
checked for Norovirus and was found to be positive.
Diarrhea since resolved
# Rate controlled atrial fibrillation-continue digoxin, diltiazem and Eliquis
# Acute on Chronic HFpEF
cont Lasix as per cardio since converted from IV to PO
# Hypokalemia-resolved
#Mild Cr elevation suspect underlying CKD 3
Cr baseline 1.0-1.2
monitor
# Dysphagia-speech evaluation appreciated
#Lower ext calf pain/tenderness b/l
likely musculoskeletal pain
improved with lidocaine patches
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
-continue Namenda
# Cystic pancreatic mass-outpatient MRI
# Nephrolithiasis
# Hyperlipidemia-continue atorvastatin
# Hypothyroidism-continue Synthroid
# Anxiety/depression-continue sertraline desipramine, doxepin
# Moderate L1 compression fracture
# Hypodense left renal lesion-outpatient CT scan dedicated to the kidneys with and without contrast
# Gallstones
# GERD-Pepcid to be continued
# History of left mastectomy
# DVT prophylaxis-Eliquis
# DNR
[facility] for patient's primary and secondary contact as below
Augustin Laureano - [phone]
Mehran Osorio [phone]
Patient's son Augustin updated with plan of care and also regarding outpatient workup for pancreatic and renal lesions.
Medically stable for discharge back to [facility] with outpatient follow up recommendations.
Discussed with patient's son Augustin
Total Time Preparing Discharge ___40____ minutes including examination of the patient, summary of the hospital stay, instructions for continuing care to all relevant caregivers; and preparation of discharge records, prescriptions, and referral
forms if necessary.
Anticipated Discharge: Today
Subjective/Interval History
-
Date of Service: April 19, 2024
Seen and examined at bedside in no acute distress resting comfortably in bed. Diarrhea resolved.
Objective Data
-
Labs:
Laboratory Results
04/19/24
06:08
WBC 8.1
Hgb 12.9
Hct 38.8
Plt Count 176
Sodium 137
Potassium 3.8
Chloride 102
Carbon Dioxide 28
BUN 26 H
Creatinine 1.1 H
Glucose 90
Calcium 8.4
Vital Signs:
Vital Signs
Temp Pulse Resp BP Pulse Ox
97.6 F 65 18 126/63 97
04/19/24 03:45 04/19/24 03:45 04/19/24 03:45 04/19/24 03:45 04/19/24 03:45
I&O
04/18/24 04/19/24 04/20/24
06:59 06:59 06:59
Intake Total 780 / 780 890 / 890
Output Total 450 / 450
Balance 780 / 780 440 / 440
[2024-04-19] MEDS: LIDOCAINE 4% PATCH 2 PATCH TOPICAL (10:14)
[2024-04-19] MEDS: NAMENDA 5 MG PO (10:15)
[2024-04-19] MEDS: CARDIZEM CD 120 MG PO (10:16)
[2024-04-19] MEDS: ELIQUIS 5 MG PO (10:17)
[2024-04-19] MEDS: LASIX 80 MG PO (10:17)
[2024-04-19] MEDS: LANOXIN 125 MCG PO (10:18)
[2024-04-19] MEDS: FLOMAX 0.4 MG PO (10:18)
[2024-04-19] MEDS: LIPITOR 10 MG PO (10:18)
[2024-04-19] MEDS: KCL 40 MEQ PO (10:18)
[2024-04-19] MEDS: ZOLOFT 25 MG PO (10:18)
[2024-04-19] MEDS: PEPCID 20 MG PO (10:18)
[2024-04-19] MEDS: SENOKOT PO (10:19)
[2024-04-19] MEDS: MIRALAX 17 GRAMS PO (10:19)
[2024-04-19] MEDS: COLACE PO (10:20)
[2024-04-19] MEDS: DESENEX/MITRAZOL/ZEASORB 1 APPLIC TOPICAL (10:20)
[2024-04-19 11:06] VITALS: BP 121/68
--- NOTE | 2024-04-19 14:15 | W.DCSUMMARY ---
Discharge Summary
Discharge Data
Date of Admission: 04/15/24
Date of Discharge: 04/19/24
-
Pending Results: No
Discharge Plan
-
Patient Disposition: [facility]/SNF
Discharge Diagnosis/Procedures: Chest pain suspected due to severe aortic stenosis/volume overload- chest pain since resolved
Norovirus
Atrial Fibrillation
Acute on Chronic Heart Failure with preserved ejection fraction
Dementia with behavior disturbances/mild intermittent agitation
Cystic pancreatic mass- outpatient MRI recommended
Hyperlipidemia
Hypothyroidism
Anxiety/depression
Hypodense left renal lesion- recommended outpatient CT scan dedicated to the kidneys with and without contrast
Condition: Fair
Diet: Other diet
Additional Diets: Soft Bite Sized, meds whole in puree
Activity: With assistance, As tolerated and With Walker
Driving Restrictions: No driving
Bathing Restrictions: None
Others Tests: Follow up with primary care provider for outpatient MRI to evaluate cystic pancreatic mass, in 1 month of discharge.
Follow up with primary care provider for outpatient dedicated Kidneys CT scan with and without contrast to evaluate hypodense left renal lesion, in 1 month of discharge.
Other Services: PT, OT and ST
Specialty Instructions: Weigh Daily- Call MD for wt gain/loss 3 lbs overnight/5 lbs in 1 week
Activity Restrictions/Additional Instructions:
Please follow up with primary care provider in 1 week of discharge.
Lasix increased to 80 mg daily for better control heart failure. Recommended to increase to twice a day as needed for weight gain 3 lbs overnight or 5 lbs in a week.
Lidocaine patches prescribed as needed for lower extremity calf pain.
Pepcid has been reduced to daily due to kidney function.
Please take medications as prescribed/recommended and follow up with primary care provider and/or other healthcare provider involved in your care for refills and/or further adjustment to your medication regimen as necessary.
Referrals:
Zack Palmoo, DO [Family Provider] - in one week
Prescriptions:
New
lidocaine 4 % Adhesive Patch,Medicated
2 patch topical DAILY PRN (Reason: Pain) Qty: 10 0RF
Rx Instructions:
Lower leg calf pain, 1 patch each leg as necessary.
furosemide 80 mg Tablet
80 mg PO DAILY Qty: 60 0RF
Rx Instructions:
Increase to twice a day as needed for weight gain 3 lbs overnight or 5lbs in a week.
Continued
atorvastatin 10 mg Tablet
10 mg PO DAILY
doxepin 25 mg Capsule
25 mg PO HS
levothyroxine 25 mcg Tablet
25 mcg PO DAILY
bisacodyl 10 mg Suppository
10 mg MT DAILYPRN PRN (Reason: if no bm aftr mom)
Fleet Enema 19-7 gram/118 mL Enema
118 ml MT DAILYPRN PRN (Reason: if no bm aftr dulolcax)
digoxin 125 mcg (0.125 mg) Tablet
125 mcg PO DAILY
desipramine 100 mg Tablet
100 mg PO HS
diltiazem HCl 120 mg Tablet Extended Release 24 Hr
120 mg PO DAILY
memantine 5 mg Tablet
5 mg PO BID
apixaban 5 mg Tablet
5 mg PO BID
tamsulosin 0.4 mg Capsule
0.4 mg PO DAILY Qty: 30 0RF
acetaminophen [Tylenol Extra Strength] 500 mg Tablet
1,000 mg PO TID MDD 3000mg Qty: 60 0RF
melatonin 3 mg Tablet
3 mg PO HS
calcium carbonate [Calcium 600] 600 mg calcium (1,500 mg) Tablet
600 mg PO BID
magnesium hydroxide [Milk of Magnesia] 400 mg/5 mL Suspension
30 ml PO DAILYPRN PRN (Reason: if no bm on 3rd day)
sertraline 25 mg Tablet
25 mg PO DAILY
potassium chloride [Klor-Con M15] 15 mEq Tablet,Er Particles/Crystals
20 meq PO DAILY
cholecalciferol (vitamin D3) [Vitamin D3] 25 mcg (1,000 unit) Tablet
50 mcg PO DAILY
nystatin 100,000 unit/gram Powder
1 applic TOPICAL BID
Changed
famotidine 20 mg Tablet
20 mg PO DAILY Qty: 0 0RF
Discontinued
furosemide 40 mg Tablet
40 mg PO DAILY
Discharge Orders:
Discharge Patient (As Directed); Ordered 04/19/24
Ordered By: Juan Fuentes
Discharge Date and Time
Print Language: MONGOLIAN
[2024-04-19 14:34] VITALS: BP 125/65
--- NOTE | 2024-04-19 14:52 | CM ---
Addendum entered by Nanette Gonzalez 04/19/24 15:00:
Left VM for son/emergency contact Augustin [phone] to update of a dc happening to [facility].
Original Note:
DC order in. Called [facility] [phone] and spoke to nursing supervisor game [employer] Dany. Told OK to return once report given. Will notify RN to please call for report. Pt will return to 2nd floor.
[2024-04-19 18:22] VITALS: BP 121/62
== END 2024-04-19 18:30 | DRG 306 ==
LOC: 3 WEST ACU 13:41
PROVIDERS: Hospitalist; Physician Assistant; ADMITTING PHYSICIAN Internal Medicine; ATTENDING PHYSICIAN Internal Medicine; EMERGENCY PHYSICIAN Emergency Medicine; FAMILY PHYSICIAN Internal Medicine; OTHER PHYSICIAN Student in an Organized Health Care Education/Training Program
DX: I35.0 Nonrheumatic aortic (valve) stenosis (principal); I50.33 Acute on chronic diastolic (congestive) heart failure; F03.93 Unspecified dementia, unspecified severity, with mood disturbance; I13.0 Hypertensive heart and chronic kidney disease with heart failure and stage 1 through stage 4 chronic kidney disease, or unspecified chronic kidney disease; A08.11 Acute gastroenteropathy due to Norwalk agent; I48.21 Permanent atrial fibrillation; F03.911 Unspecified dementia, unspecified severity, with agitation; Z79.01 Long term (current) use of anticoagulants; E87.6 Hypokalemia; E78.00 Pure hypercholesterolemia, unspecified; E03.9 Hypothyroidism, unspecified; K21.9 Gastro-esophageal reflux disease without esophagitis; F32.A Depression, unspecified
CPT/HCPCS: 71046; 74177; 80048; 80053; 80162; 83690; 83735; 84100; 84484; 85025; 85027; 87070; 87798; 92526; 92610; 93005; 93306; 97163; 97167; 97530; 99285; Q9967

== ENCOUNTER 2024-04-29 17:30 | Inpatient (IN) | payer MEDICARE, MEDICAID, SELFPAY ==
[2024-04-29] VITALS (7 sets, daily range): BP systolic 107–159; BP diastolic 62–86
[2024-04-29 15:59] LABS: Hematocrit 37.8 % (37.0-47.0); Hemoglobin 12.6 g/dL (12.0-16.0); Mean Corp Hgb Conc. 33.3 g/dL (33.0-37.0); Mean Corpuscular Hgb 31.2 pg (27.0-31.0); Mean Corpuscular Volume 93.6 fL (81.0-99.0); Mean Platelet Volume 10.9 fL (7.4-10.4); Platelet Count 253 10^3/uL (130-400); Red Blood Cell Count 4.04 10^6/uL (4.20-5.40); Red Cell Dist. Width 13.7 % (11.5-14.5); White Blood Cell Count 10.7 10^3/uL (4.8-10.8)
--- NOTE | 2024-04-29 16:17 | ED.GENMED ---
History of Present Illness
General
Chief Complaint: Rectal Bleeding
Source: ambulance crew
Time Seen by Provider: 04/29/24 15:46
History of Present Illness
History of Present Illness:
88-year-old female with past medical history of Alzheimer's dementia, atrial fibrillation, CHF presenting to the ER via EMS from senior living [facility] for evaluation after staff there reportedly noticed after patient had had a bowel movement
earlier today she had bright red blood within the toilet. Patient is unable to call these events and otherwise has no concerns at this time including abdominal pain, chest pain, shortness of breath or any other concerns. Patient is on Eliquis due
to the history of atrial fibrillation. Unclear as to if patient has any previous history. History was otherwise limited due to patient's history of dementia.
Past History
Past History
ED Past Medical History: Arrthythmia, CHF, Psychiatric and Other (Dementia)
ED Past Surgical History: Other
Social History
Tobacco: Non-smoker
Alcohol: None
Drug: None
Living: senior care
Review of Systems
Review of Systems
All Other Systems: ROS reviewed and negative except as documented in HPI and ROS
Phy Exam
Physical Exam
Physical Exam:
GENERAL: Alert , in no apparent distress
EYE: clear conjunctiva b/l
HEAD: NCAT
ENT: o/p clr, mmm.
CARDIAC: Regular rate and rhythm .
LUNGS: Clear breath sounds bilaterally, no acute respiratory distress, no wheezes/rales/rhonchi
ABDOMEN: Soft, without focal tenderness, no r/g, no cvat
RECTAL EXAM: Small clot without any stool within the rectum
NEUROLOGICAL: Alert and oriented to self but not place or time
SKIN: Warm and dry, skin intact.
MUSCULOSKELETAL: well perfused.
PSYCH: Normal and appropriate interaction.
Scores
Heart Failure Risk
Heart Failure Risk Score: Not Applicable
Heart Score for Chest Pain Patients
STEMI patient?: Not applicable
Withdrawal Assessment of Alcohol
Withdrawal Assessment Completed?: Not applicable
Course
Orders/Labs/Results
Orders:
Orders
04/29/24 15:42
Complete Blood Count/No Diff Urgent
04/29/24 16:17
ABO2 Urgent
BBK Wristband Number:
Associate notified that ABO2 has been ordered: [id number]
Date: 04/29/24
Time: 16:39
Serging Machine Operator ID: [id number]
Comprehensive Metabolic Panel Urgent
PTT Urgent
Prothrombin Time Urgent
04/29/24 16:39
Type+Screen Urgent
BBK Wristband Number:
Abnormal Lab Results
04/29/24 04/29/24
15:42 16:17
RBC 4.04 L 10^6/uL
(4.20-5.40)
MCH 31.2 H pg
(27.0-31.0)
MPV 10.9 H fL
(7.4-10.4)
PT 19.9 H Sec
(11.4-14.6)
BUN 27 H mg/dl
(7-17)
Creatinine 1.2 H mg/dL
(0.6-1.0)
Glucose 103 H mg/dl
(70-99)
04/29/24 15:42
04/29/24 16:17
Vital Signs
Initial and Last Documented VS:
Initial Vital Signs
Pulse Resp BP Pulse Ox
62 16 136/65 98
04/29/24 14:46 04/29/24 14:46 04/29/24 14:46 04/29/24 14:46
Last Documented Vital Signs
Temp Pulse Resp BP Pulse Ox
97.9 F 70 13 153/67 96
04/29/24 14:47 04/29/24 16:45 04/29/24 16:45 04/29/24 16:00 04/29/24 16:15
MDM/Problems Addressed
Differential Diagnosis Includes:
Hemorrhoidal bleeding, diverticular bleed, upper GI bleeding, anemia
MDM/Problems Addressed:
88-year-old female presenting the ER for evaluation of GI bleeding that was reported by her senior living facility staff. Patient is on Eliquis due to a history of A-fib. Presumably compliant given she is at a senior living facility. Patient
without any complaints at this time. She did have small clot that was melanotic in color during my exam. Abdomen was soft and without any focal tenderness. Given patient is without pain hemorrhoidal bleeding would certainly be high on
differential but given patient's age combined with her anticoagulated status and chronic medical conditions feel it would be best served for patient to be admitted for close monitoring. Labs pending. Anticipate admission
Chronic conditions affecting care: Arrhythmia and Neurological disorder
*Pulse Oximetry
Patient hypoxic: no
*Spin Instructor Interpretation
Rate: normal
Rhythm: sinus
*Critical Care Note
Total Time (30-74mins, 75-104mins- exclusive of procedures): Not Applicable
Patient Management
Discussion with other providers: Hospitalist
Escalation/DeEscalation of care consider admission/obs:
Patient remains hemodynamically stable. I attempted to get further information as well as update family but no answer was left on son's cell phone so left a voice message for the son to contact us back. Given the patient's age and comorbidities
plan to admit for close monitoring. Hospitalist team accepts for continued evaluation and treatment
ED Attending Note
-
Portions of this chart may have been created with voice recognition software.� Occasional wrong word or��sound alike� substitutions may have occurred due to the inherent limitations of voice recognition software.
Discharge Plan
Departure
Patient Disposition: Admit
Date of Disposition: 04/29/24
Time of Disposition: 16:43
Presentation/result/management discussed w/ accepting MD/DO: Hospitalist
Discharge Problem:
Acute lower GI bleeding, CKD (chronic kidney disease)
Prescriptions:
No Action
atorvastatin 10 mg Tablet
10 mg PO DAILY
levothyroxine 25 mcg Tablet
25 mcg PO DAILY
bisacodyl 10 mg Suppository
10 mg OR DAILYPRN PRN (Reason: if no bm aftr mom)
Fleet Enema 19-7 gram/118 mL Enema
118 ml OR DAILYPRN PRN (Reason: if no bm aftr dulolcax)
digoxin 125 mcg (0.125 mg) Tablet
125 mcg PO DAILY
desipramine 100 mg Tablet
100 mg PO HS
diltiazem HCl 120 mg Tablet Extended Release 24 Hr
120 mg PO DAILY
memantine 5 mg Tablet
5 mg PO BID
apixaban 5 mg Tablet
5 mg PO BID
tamsulosin 0.4 mg Capsule
0.4 mg PO DAILY Qty: 30 0RF
acetaminophen [Tylenol Extra Strength] 500 mg Tablet
1,000 mg PO TID MDD 3000mg Qty: 60 0RF
melatonin 3 mg Tablet
3 mg PO HS
sertraline 25 mg Tablet
25 mg PO DAILY
potassium chloride [Klor-Con M15] 15 mEq Tablet,Er Particles/Crystals
20 meq PO DAILY
cholecalciferol (vitamin D3) [Vitamin D3] 25 mcg (1,000 unit) Tablet
50 mcg PO DAILY
furosemide 80 mg Tablet
80 mg PO DAILY Qty: 60 0RF
Rx Instructions:
Increase to twice a day as needed for weight gain 3 lbs overnight or 5lbs in a week.
calcium carbonate [Calcium 500] 500 mg calcium (1,250 mg) Tablet
1,000 mg PO BID
lidocaine 4 % adhesive patch,medicated
2 patch topical DAILY PRN (Reason: b/l calf)
Rx Instructions:
Lower leg calf pain, 1 patch each leg as necessary.
famotidine 20 mg tablet
80 mg PO DAILY
Referrals:
UNKNOWN - PT DOES,NOT KNOW [Family Provider] -
Interventions
Interventions:
*Risk Screen - Suicide Last Done: 04/29/24 14:49
*Neglect/Abuse Screening Last Done: 04/29/24 14:49
ED- Cardiac Assessment Last Done: 04/29/24 14:51
ED- Pulmonary Assessment Last Done: 04/29/24 14:52
Discharge Date and Time
Print Language: ROMANSH
[2024-04-29 16:39] LABS: INR 1.67; PT 19.9 Sec (11.4-14.6)
[2024-04-29 16:41] LABS: ALT (SGPT) 15 U/L (0-35); AST (SGOT) 22 U/L (14-36); Albumin 3.7 g/dl (3.5-5.0); Alkaline Phosphatase 119 U/L (38-126); Blood Urea Nitrogen 27 mg/dl (7-17); Calcium 8.5 mg/dl (8.4-10.2); Carbon Dioxide 24 mmol/L (22-30); Chloride 106 mmol/L (98-107); Glucose 103 mg/dl (70-99); Potassium 3.8 mmol/L (3.5-5.1); Sodium 139 mmol/L (135-145); Total Bilirubin 0.6 mg/dl (0.2-1.3); Total Protein 6.6 g/dl (6.3-8.2); eGFR 43.81
--- NOTE | 2024-04-29 16:46 | HPS.HSE ---
Family Physician
-
Family Physician: NOT KNOW UNKNOWN - PT DOES
Chief Complaint
-
GI bleede
History of Present Illness
88-year-old female with past medical history of Alzheimer's dementia, atrial fibrillation, CHF presenting to the ER via EMS from senior care [facility] for evaluation after staff there reportedly noticed after patient had had a bowel movement
earlier today she had bright red blood within the toilet. patient denied any abdominal pain, nausea, vomiting or diarrhea. denied chest pain, shortness of breath. patient denied fever, chills, dysuria or hematuria. patient is poor historian.
Patient was noted melanotic stool in ER. hgb stable. admitting for further management.
Medical History
Past Medical History
Past Medical History: Reports Other
Additional Past Medical History:
Dementia, Alzheimer's, intraoperative, CHF
Past Surgical History: Reports None
Social History
Tobacco: Non-smoker
Alcohol: None
Drug: None
Living: [facility]
Family History
Family History: Not pertinent
Allergies / Home Medications
Allergies reflects when Allergies were last updated in [employer].
Home Medications with original date entered in [employer]
Allergy/Medication List:
Allergies
Allergy/AdvReac Type Severity Reaction Status Date / Time
aspirin Allergy Unknown Verified 04/12/24 23:12
codeine Allergy Unknown Verified 04/12/24 23:12
metronidazole Allergy Unknown Verified 04/12/24 23:12
sulfadiazine Allergy Unknown Verified 04/12/24 23:12
Home Medications
apixaban 5 mg tablet 5 mg PO BID Blood Clot Prevention/Tx 09/28/23
atorvastatin 10 mg tablet 10 mg PO DAILY High Cholesterol 09/28/23
bisacodyl 10 mg rectal suppository 10 mg FL DAILYPRN PRN if no bm aftr mom 09/28/23
desipramine 100 mg tablet 100 mg PO HS sleep, mental health 09/28/23
digoxin 125 mcg (0.125 mg) tablet 125 mcg PO DAILY Heart Disease/Condition 09/28/23
diltiazem HCl 120 mg tablet,extended release 24 hr 120 mg PO DAILY Heart Disease/Condition 09/28/23
levothyroxine 25 mcg tablet 25 mcg PO DAILY Thyroid 09/28/23
memantine 5 mg tablet 5 mg PO BID dementia 09/28/23
sodium phosphates 19 gram-7 gram/118 mL enema (Fleet Enema) 118 ml FL DAILYPRN PRN if no bm aftr dulolcax 09/28/23
acetaminophen 500 mg tablet (Tylenol Extra Strength) 1,000 mg (2 x 500 mg) PO TID Anti-inflammatory #60 tabs 10/03/23
tamsulosin 0.4 mg capsule 0.4 mg PO DAILY Urinary issue #30 caps 10/03/23
cholecalciferol (vitamin D3) 25 mcg (1,000 unit) tablet (Vitamin D3) 50 mcg PO DAILY Supplement 04/13/24
melatonin 3 mg tablet 3 mg PO HS Sleep 04/13/24
potassium chloride 15 mEq tablet,extended release(part/cryst) (Klor-Con M) 20 meq PO DAILY Supplement 04/13/24
sertraline 25 mg tablet 25 mg PO DAILY Mental Health/Anxiety 04/13/24
furosemide 80 mg tablet 80 mg PO DAILY #60 tabs 04/19/24
calcium carbonate 1,000 mg PO BID 04/29/24
famotidine 20 mg tablet 80 mg PO DAILY Gastrointestinal Issue 04/29/24
lidocaine 4 % topical patch 2 patch topical DAILY PRN b/l calf 04/29/24
Review of Systems
-
Constitutional: Reports No Symptoms
EENT: Reports No Symptoms
Respiratory: Reports No Symptoms
Cardiac: Reports No Symptoms
Abdomen/GI: Reports No Symptoms
: Reports No Symptoms
Musculoskeletal: Reports No Symptoms
Skin: Reports No Symptoms
Neurological: Reports No Symptoms
Endocrine: Reports No Symptoms
Hematologic/Lymphatic: Reports No Symptoms
Psych: Reports No Symptoms
Physical Exam
Vital Signs
Vital Signs
Temp Pulse Resp BP Pulse Ox
97.9 F 65 17 136/65 98
04/29/24 14:47 04/29/24 14:47 04/29/24 14:47 04/29/24 14:47 04/29/24 14:47
Physical Exam
General: Well Developed, Well Nourished and No Apparent Distress
HEENT: NormoCephalic, Moist mucous membranes and Atraumatic
Respiratory: Clear
Cardiac: S1/S2 and Regular Rhythm; No Murmur or Rub
GI: Soft, Non Tender, Non Distended and Normal Bowel Sounds; No Organomegaly
Rectal: Deferred by Provider
Musculoskeletal: No Clubbing, No Cyanosis and No Edema
Skin: No Rash
Neuro: Nonfocal/grossly intact
Psych: Calm and Confused
Laboratory Results
-
04/29/24 15:42
04/29/24 16:17
Laboratory Results
Total Bilirubin 0.6 mg/dl (0.2-1.3) 04/29/24 16:17
AST 22 U/L (14-36) 04/29/24 16:17
ALT 15 U/L (0-35) 04/29/24 16:17
Alkaline Phosphatase 119 U/L (38-126) 04/29/24 16:17
Data Reviewed
-
Lab Data: Labs Reviewed by me
Impression/Plan
-
# GI bleed on anticoagulant
-Hemoglobin 12.6
-Continue to trend hemoglobin
-Patient is on clear liquid diet
-Transfuse if hemoglobin less than 7
-GI consult
# CKD stage IIIb
-Creatinine 1.2
-Continue to monitor
# Permanent atrial fibrillation
-continue digoxin, diltiazem
-Hold Eliquis
# Chronic HFpEF
-Not in acute exacerbation
-Lasix continued
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
-continue Namenda
# Hyperlipidemia-continue atorvastatin
# Hypothyroidism-continue Synthroid
# Anxiety/depression-continue sertraline desipramine, doxepin
# GERD
-iv ppi
# History of left mastectomy
# DVT prophylaxis-SCD
# DNR
--- NOTE | 2024-04-29 17:44 | W.PN.UPDATE ---
Update Note
Progress Note Update
This note serves as an addendum to the H&P by science specialist ASH Milady WANG
HPI
I could not get any information from the patient as dementia
Information gathered by chart review and speaking with the ER staff.
88F [facility] EMS from SNF HX Alzheimer's dementia, AF , HX CHF seen at ER
- for evaluation after staff there reportedly noticed after patient had had a bowel movement earlier today she had bright red blood within the toilet.
- Patient was noted melanotic stool in ER.
ROS:
- denied abdominal pain, nausea, vomiting or diarrhea. denied chest pain, shortness of breath.
- denied fever, chills, dysuria or hematuria
PHX: see above
Vital Signs
Temp Pulse Resp BP Pulse Ox
97.9 F 69 13 158/64 97
04/29/24 14:47 04/29/24 17:15 04/29/24 17:15 04/29/24 17:00 04/29/24 17:30
PE
Gen: No Apparent Distress
HEENT: Moist mucous membranes and Atraumatic
Neck: supple
Lungs: CTA
Cor: RRR S1 S2
Abdomen: Soft, Non Tender, Non Distended and Normal Bowel Sounds
Rectal: Deferred by Provider
GEOLOGY TEACHER: Grossly normal
MS: no edema
Psych: pleasantly confused
Laboratory Tests
04/19/24 04/29/24 04/29/24
06:08 15:42 16:17
Hgb 12.9 12.6
BUN 27 H
Creatinine 1.1 H 1.2 H
eGFR 48.63 43.81
ASSESSMENT & PLAN
Acute GIB on Eliquis: UGI vs LGU
Melanotic stool per ER
- HD stable
- Hgb 12.6 and stable
- trend Hgb
- IV PPI BID
- on clear
- Blood Tx threshold: if Hgb < 7
- GI Consult
CKD 3b
- stable
- baseline 1.2
- observe Hgb
Permanent AF
- on digoxin, diltiazem
- Hold Eliquis due to GIB
Chronic HFpEF
- stable
- not in acute HF
- STEAM BONE PRESS TENDER PO Lasix
Dementia with HX behavior disturbances/mild intermittent agitation
- c/w Namenda
DVT Px: SCD
Full code
IP TLM
[2024-04-29 18:01] LABS: Digoxin 0.8 ng/ml (0.8-2.0)
[2024-04-29] MEDS: MELATONIN 3 MG PO (21:27)
[2024-04-29] MEDS: NAMENDA 5 MG PO (21:27)
[2024-04-29] MEDS: NORPRAMIN 100 MG PO (21:27)
[2024-04-29] MEDS: PROTONIX IV 40 MG IV (21:28)
[2024-04-29] MEDS: NSS (PRESERVATIVE FREE) 10 ML IV (21:28)
[2024-04-29 21:30] LABS: Hematocrit 37.9 % (37.0-47.0)
[2024-04-30 04:52] LABS: Hematocrit 36.1 % (37.0-47.0); Mean Corp Hgb Conc. 33.2 g/dL (33.0-37.0); Mean Corpuscular Hgb 31.2 pg (27.0-31.0); Mean Corpuscular Volume 93.8 fL (81.0-99.0); Mean Platelet Volume 10.7 fL (7.4-10.4); Platelet Count 226 10^3/uL (130-400); Red Blood Cell Count 3.85 10^6/uL (4.20-5.40); Red Cell Dist. Width 13.7 % (11.5-14.5); White Blood Cell Count 9.5 10^3/uL (4.8-10.8)
[2024-04-30 05:14] LABS: Blood Urea Nitrogen 20 mg/dl (7-17); Calcium 8.3 mg/dl (8.4-10.2); Carbon Dioxide 26 mmol/L (22-30); Chloride 106 mmol/L (98-107); Glucose 104 mg/dl (70-99); Potassium 3.3 mmol/L (3.5-5.1); Sodium 138 mmol/L (135-145); eGFR 54.53
[2024-04-30] MEDS: SYNTHROID 25 MCG PO (05:59)
--- NOTE | 2024-04-30 07:13 | W.PN.HOSP.TC ---
Today's Communication/Plan
-
resume home Eliquis
likely discharge back to SNF tomorrow if no further bloody/melenic bowel movements and remains stable
Assessment / Plan
Assessment / Plan
Physical Exam
General: No acute distress appears comfortable
HEENT: NormoCephalic, Moist mucous membranes and Atraumatic
Respiratory: Clear
Cardiac: S1/S2 and Regular Rhythm; No Murmur or Rub
GI: Soft, Non Tender, Non Distended and Normal Bowel Sounds; No Organomegaly
Musculoskeletal: No Clubbing, No Cyanosis and No Edema
Skin: No Rash
Neuro: AOx2 disoriented to time
Psych: Calm confused but cooperative
88F Alzheimer's dementia, atrial fibrillation, CHF presented to the ER via EMS [facility] for evaluation staff reported bright red bowel movement in toilet. Melenic stool noted in ER. Otherwise VSS, no significant anemia noted in
labs.
suspected GI bleed on anticoagulant
-H&H consistently stable, no significant anemia. No new bloody or melenic bowel movements noted since admission.
-GI consult appreciated inpatient endoscopic evaluation not indicated, ok to resume AC, once daily PPI on dc, outpt follow up with GI if family/POA want to pursue further work up
CKD stage IIIb
-Monitor Renal Function
Permanent atrial fibrillation
-continue digoxin, diltiazem
-Home Eliquis resumed
Chronic HFpEF
-Not in acute exacerbation
-Lasix continued
Dementia with behavior disturbances/mild intermittent agitation
-continue Namenda
Hyperlipidemia-continue atorvastatin
Hypothyroidism-continue Synthroid
Anxiety/depression-continue sertraline desipramine, doxepin
GERD
-iv ppi
History of left mastectomy
DVT prophylaxis-SCD
DNR
Son janis LACEY Augustin called but no answer received, unable to leave message.
I spent a total of 40 minutes with the patient or on the floor. More than 50% of this time involved counseling and coordination of care.
Anticipated Discharge: Within 24 hours
Subjective/Interval History
-
Date of Service: April 30, 2024
No acute distress sitting up comfortably in bed. Overall appears well. AOx2 disoriented to time. Conversant, cheerful, during evaluation.
Objective Data
-
Labs:
Laboratory Results
04/29/24 04/30/24 04/30/24
21:23 04:41 04:41
WBC 9.5
Hgb 13.0 Cancelled 12.0
Hct 37.9 Cancelled
Plt Count
Sodium
Potassium
Chloride
Carbon Dioxide
BUN
Creatinine
Glucose
Calcium
04/30/24 04/30/24
04:41 10:00
WBC
Hgb Pending
Hct 36.1 L Pending
Plt Count 226
Sodium 138
Potassium 3.3 L
Chloride 106
Carbon Dioxide 26
BUN 20 H
Creatinine 1.0
Glucose 104 H
Calcium 8.3 L
Vital Signs:
Vital Signs
Temp Pulse Resp BP Pulse Ox
98.2 F 72 16 107/70 93
04/29/24 23:05 04/29/24 23:05 04/29/24 23:05 04/29/24 23:05 04/29/24 23:05
[2024-04-30 07:25] VITALS: BP 137/72
[2024-04-30] MEDS: LIPITOR 10 MG PO (09:01)
[2024-04-30] MEDS: KCL 20 MEQ PO (09:01)
[2024-04-30] MEDS: LANOXIN 125 MCG PO (09:01)
[2024-04-30] MEDS: NAMENDA 5 MG PO ×2 (09:02→21:13)
[2024-04-30] MEDS: LASIX 80 MG PO (09:02)
[2024-04-30] MEDS: FLOMAX 0.4 MG PO (09:02)
[2024-04-30] MEDS: CARDIZEM CD 120 MG PO (09:04)
[2024-04-30] MEDS: NSS (PRESERVATIVE FREE) 10 ML IV (09:05)
[2024-04-30] MEDS: PROTONIX IV 40 MG IV (09:05)
[2024-04-30] MEDS: FLUSH (NSS) 2 FLUSH IV (09:06)
[2024-04-30] MEDS: ZOLOFT 25 MG PO (09:11)
[2024-04-30 09:39] VITALS: BP 114/61; BP 115/57; BP 99/55; PULSE 62; PULSE 68; PULSE 78
[2024-04-30 10:40] LABS: Hematocrit 36.4 % (37.0-47.0); Hemoglobin 12.2 g/dL (12.0-16.0)
[2024-04-30 11:19] VITALS: BP 126/60
--- NOTE | 2024-04-30 12:35 | CON.GI ---
Consultation
-
Date/Time Consultation Requested: 04/29/24
Date/Time Consultation Performed: 04/30/24
Requesting Provider: Dr. Fuentes
Performing Provider: Dr. Stephen
Reason for Consultation: BRBPR
Medical History
Chief Complaint / HPI
Chief Complaint: BRBPR
History of Present Illness:
Kiah Laureano is an 88 y.o. female with pmhx Alzheimers dementia, afib on AC, �hx of CHF, sent in from [facility] with concerns of rectal bleeding. Per ER staff who spoke with long-term, a scant amount of bright red blood was noted on the toilet
paper after patient had a bowel movement. ER documents melena on rectal exam, however, does note that bleeding is likely hemorrhoidal.. recommended to admit and observe due to patient being on anticoagulation. Patient has dementia and unable to
provide any history. She offers no complaints. Of note, she was admitted to on 04/15 with heart failure, seen by cardiology. She is noted to have permanent afib and severe paradoxical low flow, low gradient �attempts were made by cardiology to
discuss GOC with family, however, no contact listed on chart.�
Labs on admission: Hgb 12.6, MCV 93.6, Plt 253. Prior Hemoglobin 12.9 on 04/19.�Repeat this morning was 12.2. She was noted by nursing to have a small brown BM.
CT A/P 04/13/24: Liver and spleen are unremarkable. Several small cysts in the pancreas, largest present in body of pancreas, measuring 1.2 cm. A few moderate-sized cholesterol gallstones. Nonobstructing bilateral renal stones; small hypodense left
renal lesion likely a benign cyst. Moderate atherosclerotic vascular disease. Moderate fecal material throughout the colon.
Past Medical History
Past Medical History: Other (Alzheimers dementia, afib on AC, �hx of CHF, )
Past Surgical History: None
Social History
Tobacco: Non-Smoker
Alcohol: None
Drug: None
Living: Longterm
Family History
Family History: Unable to Obtain
Allergies / Home Medications
Allergy/AdvReac Type Severity Reaction Status Date / Time
aspirin Allergy Unknown Verified 04/12/24 23:12
codeine Allergy Unknown Verified 04/12/24 23:12
metronidazole Allergy Unknown Verified 04/12/24 23:12
sulfadiazine Allergy Unknown Verified 04/12/24 23:12
�Medication �Instructions �Recorded
apixaban 5 mg tablet 5 mg PO BID Blood Clot 09/28/23
Prevention/Tx
atorvastatin 10 mg tablet 10 mg PO DAILY High Cholesterol 09/28/23
bisacodyl 10 mg rectal suppository 10 mg RI DAILYPRN PRN if no bm 09/28/23
aftr mom
desipramine 100 mg tablet 100 mg PO HS sleep, mental health 09/28/23
digoxin 125 mcg (0.125 mg) tablet 125 mcg PO DAILY Heart 09/28/23
Disease/Condition
diltiazem HCl 120 mg 120 mg PO DAILY Heart 09/28/23
tablet,extended release 24 hr Disease/Condition
levothyroxine 25 mcg tablet 25 mcg PO DAILY Thyroid 09/28/23
memantine 5 mg tablet 5 mg PO BID dementia 09/28/23
sodium phosphates 19 gram-7 118 ml RI DAILYPRN PRN if no bm 09/28/23
gram/118 mL enema (Fleet Enema) aftr dulolcax
acetaminophen 500 mg tablet 1,000 mg (2 x 500 mg) PO TID 10/03/23
(Tylenol Extra Strength) Anti-inflammatory #60 tabs
tamsulosin 0.4 mg capsule 0.4 mg PO DAILY Urinary issue #30 10/03/23
caps
cholecalciferol (vitamin D3) 25 50 mcg PO DAILY Supplement 04/13/24
mcg (1,000 unit) tablet (Vitamin
D3)
melatonin 3 mg tablet 3 mg PO HS Sleep 04/13/24
potassium chloride 15 mEq 20 meq PO DAILY Supplement 04/13/24
tablet,extended
release(part/cryst) (Klor-Con M)
sertraline 25 mg tablet 25 mg PO DAILY Mental 04/13/24
Health/Anxiety
furosemide 80 mg tablet 80 mg PO DAILY #60 tabs 04/19/24
calcium carbonate 1,000 mg PO BID 04/29/24
famotidine 20 mg tablet 80 mg PO DAILY Gastrointestinal 04/29/24
Issue
lidocaine 4 % topical patch 2 patch topical DAILY PRN b/l calf 04/29/24
Review of Systems
-
Unable to obtain full review of systems at this time due to: Dementia
History Source: Longterm, Physician and Coordinating Provider
Vital Signs
Temp Pulse Resp BP Pulse Ox
97.7 F 55 18 126/60 95
04/30/24 11:19 04/30/24 11:19 04/30/24 11:19 04/30/24 11:19 04/30/24 11:19
Physical Exam
Exam
GI: Soft, Non Tender, Non Distended and Normal Bowel Sounds
Results
WBC 9.5 10^3/uL (4.8-10.8) 04/30/24 04:41
Hgb 12.2 g/dL (12.0-16.0) 04/30/24 10:13
Hct 36.4 % (37.0-47.0) L 04/30/24 10:13
MCV 93.8 fL (81.0-99.0) 04/30/24 04:41
Plt Count 226 10^3/uL (130-400) 04/30/24 04:41
PT 19.9 Sec (11.4-14.6) H 04/29/24 16:17
INR 1.67 04/29/24 16:17
APTT 35.0 Sec (23.4-35.0) 04/29/24 16:17
Sodium 138 mmol/L (135-145) 04/30/24 04:41
Potassium 3.3 mmol/L (3.5-5.1) L 04/30/24 04:41
Chloride 106 mmol/L (98-107) 04/30/24 04:41
Carbon Dioxide 26 mmol/L (22-30) 04/30/24 04:41
BUN 20 mg/dl (7-17) H 04/30/24 04:41
Creatinine 1.0 mg/dL (0.6-1.0) 04/30/24 04:41
Calcium 8.3 mg/dl (8.4-10.2) L 04/30/24 04:41
Total Bilirubin 0.6 mg/dl (0.2-1.3) 04/29/24 16:17
AST 22 U/L (14-36) 04/29/24 16:17
ALT 15 U/L (0-35) 04/29/24 16:17
Alkaline Phosphatase 119 U/L (38-126) 04/29/24 16:17
Diagnostic Image Results:
Prior GI Procedures:
EGD:
Colonoscopy:
Assessment / Plan
-
88 y.o. female w/ Alzheimers dementia, afib on AC, CHF, Aortic stenosis admitted with rectal bleeding.�
#GI bleeding-- reported small-volume hematochezia at SNF, noted to have small melenic clot in ED. BUN is WNL, hemoglobin is stable. Given dementia, she is unable to participate in evaluation. No overt signs of GI bleeding since admission with stable
hemoglobin.�
-recommend d/c on once daily PPI�
-okay to resume AC
-no plans for inpatient endoscopic evaluation, recommend outpatient f/u with GI if POA/family would want to pursue further workup
#Pancreatic cysts
-Given age and comorbidities, likely would not necessarily recommend ongoing workup/surveillance for these cysts, again, depending on families wishes
-regardless, if desired, recommend outpatient MRI to further characterize
GI will sign off. Please call with questions.�
-
-
Thank you for consultation and allowing me to participate in the patient's care. Please call the cushion worker GI physician during the after hours with any questions or concerns.
[2024-04-30 15:07] VITALS: BP 123/53
[2024-04-30] MEDS: TYLENOL 1000 MG PO ×2 (16:41→21:13)
--- NOTE | 2024-04-30 17:29 | PTOTSP ---
ST Acute Care Evaluation
Pt currently presents with clinical signs of mild oral dysphagia characterized by prolonged mastication and bolus formation as well as reduced bolus formation with hard solids.
Recommendations:
- Continue with soft bite sized solids, thin liquids, and meds as tolerated.
- Aspiration and reflux precautions: HOB upright for all PO intake and for at least 60 minutes after PO intake; small bites/sips; alternate bites/sips.
- COMMERCIAL ROOFING ESTIMATOR to f/u re: diet tolerance and to see if pt is a candidate for any further diet upgrades.
[2024-04-30] MEDS: NORPRAMIN 100 MG PO (21:12)
[2024-04-30] MEDS: MELATONIN 3 MG PO (21:13)
[2024-04-30] MEDS: OSCAL CAL 500 1000 MG PO (21:13)
[2024-04-30] MEDS: ELIQUIS 5 MG PO (21:13)
[2024-04-30 22:39] VITALS: BP 135/72
[2024-05-01] MEDS: SYNTHROID 25 MCG PO (04:55)
[2024-05-01 04:57] VITALS: BMI 27.4
[2024-05-01 06:00] VITALS: BMI 27.4
--- NOTE | 2024-05-01 06:46 | W.PN.HOSP.TC ---
Addendum entered and electronically signed by Juan Fuentes MD 05/01/24 13:37:
Possible GI bleed associate with Eliquis use.
Original Note:
Today's Communication/Plan
-
discharge
Assessment / Plan
Assessment / Plan
Physical Exam
General: No acute distress appears comfortable
HEENT: NormoCephalic, Moist mucous membranes and Atraumatic
Respiratory: Clear
Cardiac: S1/S2 and Regular Rhythm; No Murmur or Rub
GI: Soft, Non Tender, Non Distended and Normal Bowel Sounds; No Organomegaly
Musculoskeletal: No Clubbing, No Cyanosis and No Edema
Skin: No Rash
Neuro: AOx2 disoriented to time
Psych: Calm confused but cooperative
88F Alzheimer's dementia, atrial fibrillation, CHF presented to the ER [facility] EMS [facility] staff reported bright red bowel movement in toilet. Melenic stool noted in ER. Otherwise VSS, no significant anemia noted in
labs.
suspected GI bleed on anticoagulant
-H&H consistently stable, no significant anemia. No new bloody or melenic bowel movements noted since admission.
-GI consult appreciated inpatient endoscopic evaluation not indicated, ok to resume AC, once daily PPI on dc, outpt follow up with GI if family/POA want to pursue further work up
CKD stage IIIb
-Monitor Renal Function
Permanent atrial fibrillation
-continue digoxin, diltiazem
-Home Eliquis resumed
Chronic HFpEF
-Not in acute exacerbation
-Lasix continued
Dementia with behavior disturbances/mild intermittent agitation
-continue Namenda
Hyperlipidemia-continue atorvastatin
Hypothyroidism-continue Synthroid
Anxiety/depression-continue sertraline desipramine, doxepin
GERD
-iv ppi
History of left mastectomy
DVT prophylaxis-SCD
DNR
Medically stable for discharge back to [facility] with outpatient follow up recommendations.
Discussed with patient's son Augustin LACEY
Total Time Preparing Discharge __40 minutes including examination of the patient, summary of the hospital stay, instructions for continuing care to all relevant caregivers; and preparation of discharge records, prescriptions, and referral
forms if necessary.
Anticipated Discharge: Today
Subjective/Interval History
-
Date of Service: May 01, 2024
Seen and examined at bedside in no acute distress resting comfortably in bed.
Objective Data
-
Vital Signs:
Vital Signs
Temp Pulse Resp BP Pulse Ox
97.7 F 65 16 135/72 95
04/30/24 22:39 04/30/24 22:39 04/30/24 22:39 04/30/24 22:39 05/01/24 01:10
I&O
04/29/24 04/30/24 05/01/24
06:59 06:59 06:59
Intake Total 1020 / 1020
Balance 1020 / 1020
[2024-05-01 07:10] VITALS: BP 134/61
[2024-05-01] MEDS: OSCAL CAL 500 1000 MG PO ×2 (09:55→20:58)
[2024-05-01] MEDS: TYLENOL 1000 MG PO ×3 (09:55→21:06)
[2024-05-01] MEDS: ZOLOFT 25 MG PO (09:55)
[2024-05-01] MEDS: LASIX 80 MG PO (09:56)
[2024-05-01] MEDS: ELIQUIS 5 MG PO ×2 (09:57→20:55)
[2024-05-01] MEDS: PROTONIX 40 MG PO (09:57)
[2024-05-01] MEDS: KCL 20 MEQ PO (09:57)
[2024-05-01] MEDS: LANOXIN 125 MCG PO (09:57)
[2024-05-01] MEDS: NAMENDA 5 MG PO ×2 (09:58→20:56)
[2024-05-01] MEDS: LIPITOR 10 MG PO (09:58)
[2024-05-01] MEDS: CARDIZEM CD 120 MG PO (09:58)
[2024-05-01] MEDS: FLOMAX 0.4 MG PO (09:59)
[2024-05-01] MEDS: VITAMIN D3 (cholecalciferol) 50 MCG PO (09:59)
--- NOTE | 2024-05-01 10:20 | CM ---
CM spoke to Ginger in admissions at [facility] where patient resides. Per Ginger, patient is confused at baseline. She is an assist of 1 for all ADLs, personal care, dressing and bathing. She is incontinent of bowel and bladder. She barely ambulates
and is primarily in a w/c. She also uses a walker for short distances.
Bed hold confirmed. Patient can return upon medical clearance.
Plan: Case management will continue to follow and assist with discharge planning. Back to [facility] when stable for discharge.
[place] Report: [phone]
[place]
--- NOTE | 2024-05-01 11:22 | PN.CDI ---
CDI
- -
CDI:
Physician Documentation Request
Admit Date: 04/29/24 17:30
Dear Doctor Gina,
Patient admitted with GI bleed.
H&P, 'GI bleed on anticoagulant....Hold Eliquis.'
04/30 PN, 'Home Eliquis resumed.'
Please clarify the likely relationship between these conditions:
Yes, GI bleed is associated with/ enhanced by Eliquis
No, GI bleed is not associated with/ enhanced by Eliquis but it is due to ___. (Please specify)
Unable to determine
Use of terms such as suspected, likely, concern for, or probable (associated with a specific diagnosis that is being evaluated, monitored, or treated as if it exists) are acceptable and can be coded in the inpatient setting, when documented at the
time of discharge.
Thank you,
Tiara BLAKELY,RN,CCDS
CDI Specialist
Available via [facility] text
Please use your independent medical judgment in providing your response.
--- NOTE | 2024-05-01 13:23 | W.DCSUMMARY ---
Discharge Summary
Discharge Data
Date of Admission: 04/29/24
Date of Discharge: 05/01/24
-
Pending Results: No
Discharge Plan
-
Patient Disposition: Retirement/SNF
Discharge Diagnosis/Procedures: Suspected GI bleed unclear etiology since resolved
No significant Anemia
Condition: Fair
Diet: Other diet
Additional Diets: Soft Bite Sized, meds whole in puree
Activity: With assistance and As tolerated
Driving Restrictions: No driving
Bathing Restrictions: None
Blood Work: Repeat CBC and BMP with primary care provider in 1 week of discharge
Others Tests: If in line with goals of care:
Follow up with primary care provider for outpatient MRI to evaluate cystic pancreatic mass, in 1 month of discharge.
Follow up with primary care provider for outpatient dedicated Kidneys CT scan with and without contrast to evaluate hypodense left renal lesion, in 1 month of discharge.
Activity Restrictions/Additional Instructions:
Please follow up with primary care provider in 1 week of discharge. If in line with goals of care, GI referral 2-4 week follow up has been provided for possible benefit outpatient endoscopy evaluation.
Pepcid has been switched to Protonix for possible GI bleed as per GI recommendations.
Please take medications as prescribed/recommended and follow up with primary care provider and/or other healthcare provider involved in your care for further adjustment to your medication regimen as necessary.
Referrals:
Nanette Stephen, DO [Active] - in two to four weeks
UNKNOWN - PT DOES,NOT KNOW [Family Provider] -
Prescriptions:
New
pantoprazole 40 mg Tablet,Delayed Release (Dr/Ec)
40 mg PO DAILY 30 Days Qty: 30 0RF
Continued
atorvastatin 10 mg Tablet
10 mg PO DAILY
levothyroxine 25 mcg Tablet
25 mcg PO DAILY
bisacodyl 10 mg Suppository
10 mg IN DAILYPRN PRN (Reason: if no bm aftr mom)
Fleet Enema 19-7 gram/118 mL Enema
118 ml IN DAILYPRN PRN (Reason: if no bm aftr dulolcax)
digoxin 125 mcg (0.125 mg) Tablet
125 mcg PO DAILY
desipramine 100 mg Tablet
100 mg PO HS
diltiazem HCl 120 mg Tablet Extended Release 24 Hr
120 mg PO DAILY
memantine 5 mg Tablet
5 mg PO BID
apixaban 5 mg Tablet
5 mg PO BID
tamsulosin 0.4 mg Capsule
0.4 mg PO DAILY Qty: 30 0RF
acetaminophen [Tylenol Extra Strength] 500 mg Tablet
1,000 mg PO TID MDD 3000mg Qty: 60 0RF
melatonin 3 mg Tablet
3 mg PO HS
sertraline 25 mg Tablet
25 mg PO DAILY
potassium chloride [Klor-Con M15] 15 mEq Tablet,Er Particles/Crystals
20 meq PO DAILY
cholecalciferol (vitamin D3) [Vitamin D3] 25 mcg (1,000 unit) Tablet
50 mcg PO DAILY
furosemide 80 mg Tablet
80 mg PO DAILY Qty: 60 0RF
Rx Instructions:
Increase to twice a day as needed for weight gain 3 lbs overnight or 5lbs in a week.
calcium carbonate 500 mg calcium (1,250 mg) Tablet
1,000 mg PO BID
lidocaine 4 % adhesive patch,medicated
2 patch topical DAILY PRN (Reason: b/l calf)
Rx Instructions:
Lower leg calf pain, 1 patch each leg as necessary.
Discontinued
famotidine 20 mg tablet
80 mg PO DAILY
Discharge Orders:
Discharge Patient (As Directed); Ordered 05/01/24
Ordered By: Juan Fuentes
Discharge Date and Time
Print Language: KOREAN
[2024-05-01 15:38] VITALS: BP 131/59
[2024-05-01] MEDS: MELATONIN 3 MG PO (21:05)
[2024-05-01] MEDS: NORPRAMIN 100 MG PO (21:05)
[2024-05-01 23:40] VITALS: BP 145/70
[2024-05-02] MEDS: SYNTHROID 25 MCG PO (05:07)
[2024-05-02 06:00] VITALS: BMI 28.4
[2024-05-02 07:30] VITALS: BP 134/73
--- NOTE | 2024-05-02 08:44 | W.PN.HOSP.TC ---
Today's Communication/Plan
-
discharge
Assessment / Plan
Assessment / Plan
Physical Exam
General: No acute distress appears comfortable
HEENT: NormoCephalic, Moist mucous membranes and Atraumatic
Respiratory: Clear
Cardiac: S1/S2 and Regular Rhythm; No Murmur or Rub
GI: Soft, Non Tender, Non Distended and Normal Bowel Sounds; No Organomegaly
Musculoskeletal: No Clubbing, No Cyanosis and No Edema
Skin: No Rash
Neuro: AOx2 disoriented to time
Psych: Calm confused but cooperative
88F Alzheimer's dementia, atrial fibrillation, CHF presented to the ER via EMS from [facility] for evaluation staff reported bright red bowel movement in toilet. Melenic stool noted in ER. Otherwise VSS, no significant anemia noted in
labs.
suspected GI bleed on anticoagulant
-H&H consistently stable, no significant anemia. No new bloody or melenic bowel movements noted since admission.
-GI consult appreciated inpatient endoscopic evaluation not indicated, ok to resume AC, once daily PPI on dc, outpt follow up with GI if family/POA want to pursue further work up
CKD stage IIIb
-Monitor Renal Function
Permanent atrial fibrillation
-continue digoxin, diltiazem
-Home Eliquis resumed
Chronic HFpEF
-Not in acute exacerbation
-Lasix continued
Dementia with behavior disturbances/mild intermittent agitation
-continue Namenda
Hyperlipidemia-continue atorvastatin
Hypothyroidism-continue Synthroid
Anxiety/depression-continue sertraline desipramine, doxepin
GERD
-iv ppi
History of left mastectomy
DVT prophylaxis-SCD
DNR
Medically stable for discharge back to [facility] with outpatient follow up recommendations.
Discussed with patient's son Augustin LACEY
I spent a total of 25 minutes with the patient or on the floor. More than 50% of this time involved counseling and coordination of care.
Anticipated Discharge: Today
Subjective/Interval History
-
Date of Service: May 02, 2024
no acute distress. reports some nasal congestion (claritin once ordered). Otherwise remains stable for discharge back to [facility].
Objective Data
-
Vital Signs:
Vital Signs
Temp Pulse Resp BP Pulse Ox
97.6 F 74 18 134/73 95
05/02/24 07:30 05/02/24 07:30 05/02/24 07:30 05/02/24 07:30 05/02/24 07:30
I&O
05/01/24 05/02/24 05/03/24
06:59 06:59 06:59
Intake Total 1020 / 1020 760 / 760
Balance 1020 / 1020 760 / 760
--- NOTE | 2024-05-02 08:44 | W.DCSUMMARY ---
Discharge Summary
Discharge Data
Date of Admission: 04/29/24
Date of Discharge: 05/02/24
-
Pending Results: No
Discharge Plan
-
Patient Disposition: Retirement/SNF
Discharge Diagnosis/Procedures: Suspected GI bleed unclear etiology since resolved
No significant Anemia
Condition: Fair
Diet: Other diet
Additional Diets: Soft Bite Sized, meds whole in puree
Activity: With assistance and As tolerated
Driving Restrictions: No driving
Bathing Restrictions: None
Blood Work: Repeat CBC and BMP with primary care provider in 1 week of discharge
Others Tests: If in line with goals of care:
Follow up with primary care provider for outpatient MRI to evaluate cystic pancreatic mass, in 1 month of discharge.
Follow up with primary care provider for outpatient dedicated Kidneys CT scan with and without contrast to evaluate hypodense left renal lesion, in 1 month of discharge.
Activity Restrictions/Additional Instructions:
Please follow up with primary care provider in 1 week of discharge. If in line with goals of care, GI referral 2-4 week follow up has been provided for possible benefit outpatient endoscopy evaluation.
Pepcid has been switched to Protonix for possible GI bleed as per GI recommendations.
Please take medications as prescribed/recommended and follow up with primary care provider and/or other healthcare provider involved in your care for further adjustment to your medication regimen as necessary.
Referrals:
Nanette Stephen, DO [Active] - in two to four weeks
UNKNOWN - PT DOES,NOT KNOW [Family Provider] -
Prescriptions:
New
pantoprazole 40 mg Tablet,Delayed Release (Dr/Ec)
40 mg PO DAILY 30 Days Qty: 30 0RF
Continued
atorvastatin 10 mg Tablet
10 mg PO DAILY
levothyroxine 25 mcg Tablet
25 mcg PO DAILY
bisacodyl 10 mg Suppository
10 mg MI DAILYPRN PRN (Reason: if no bm aftr mom)
Fleet Enema 19-7 gram/118 mL Enema
118 ml MI DAILYPRN PRN (Reason: if no bm aftr dulolcax)
digoxin 125 mcg (0.125 mg) Tablet
125 mcg PO DAILY
desipramine 100 mg Tablet
100 mg PO HS
diltiazem HCl 120 mg Tablet Extended Release 24 Hr
120 mg PO DAILY
memantine 5 mg Tablet
5 mg PO BID
apixaban 5 mg Tablet
5 mg PO BID
tamsulosin 0.4 mg Capsule
0.4 mg PO DAILY Qty: 30 0RF
acetaminophen [Tylenol Extra Strength] 500 mg Tablet
1,000 mg PO TID MDD 3000mg Qty: 60 0RF
melatonin 3 mg Tablet
3 mg PO HS
sertraline 25 mg Tablet
25 mg PO DAILY
potassium chloride [Klor-Con M15] 15 mEq Tablet,Er Particles/Crystals
20 meq PO DAILY
cholecalciferol (vitamin D3) [Vitamin D3] 25 mcg (1,000 unit) Tablet
50 mcg PO DAILY
furosemide 80 mg Tablet
80 mg PO DAILY Qty: 60 0RF
Rx Instructions:
Increase to twice a day as needed for weight gain 3 lbs overnight or 5lbs in a week.
calcium carbonate 500 mg calcium (1,250 mg) Tablet
1,000 mg PO BID
lidocaine 4 % adhesive patch,medicated
2 patch topical DAILY PRN (Reason: b/l calf)
Rx Instructions:
Lower leg calf pain, 1 patch each leg as necessary.
Discontinued
famotidine 20 mg tablet
80 mg PO DAILY
Discharge Orders:
Discharge Patient (As Directed); Ordered 05/01/24
Ordered By: Juan Fuentes
Discharge Date and Time
Print Language: CZECH
--- NOTE | 2024-05-02 09:12 | CM ---
Addendum entered by Idalmis Mercado 05/02/24 09:18:
11:00 a.m. ambulance transport
Original Note:
CM reviewed chart, patient for discharge today, back to [facility], updates sent via [facility]. CM placed call to patients sonAugustin, reviewed discharge plan and need for transport, will set up ambulance transport. IMM verbally reviewed, agreeable to
discharge, form placed in chart. Jena at [facility] aware of patients return. CM will continue to follow for all discharge planning needs.
Plan; Return to [facility], ambulance transport
[facility]:
Report: [phone]
[2024-05-02] MEDS: OSCAL CAL 500 1000 MG PO (09:38)
[2024-05-02] MEDS: ZOLOFT 25 MG PO (09:39)
[2024-05-02] MEDS: VITAMIN D3 (cholecalciferol) 50 MCG PO (09:40)
[2024-05-02] MEDS: NAMENDA 5 MG PO (09:40)
[2024-05-02] MEDS: LASIX 80 MG PO (09:40)
[2024-05-02] MEDS: LANOXIN 125 MCG PO (09:41)
[2024-05-02] MEDS: PROTONIX 40 MG PO (09:41)
[2024-05-02] MEDS: FLOMAX 0.4 MG PO (09:41)
[2024-05-02] MEDS: ELIQUIS 5 MG PO (09:41)
[2024-05-02] MEDS: LIPITOR 10 MG PO (09:42)
[2024-05-02] MEDS: CARDIZEM CD 120 MG PO (09:42)
[2024-05-02] MEDS: KCL 20 MEQ PO (09:42)
[2024-05-02] MEDS: TYLENOL 1000 MG PO (09:43)
[2024-05-02] MEDS: CLARITIN 10 MG PO (10:00)
[2024-05-02 11:08] VITALS: BP 113/56
== END 2024-05-02 11:28 | DRG 813 ==
LOC: 4 WEST ACU 17:30
PROVIDERS: Physician Assistant Medical; Registered Nurse; ADMITTING PHYSICIAN Internal Medicine; ATTENDING PHYSICIAN Internal Medicine; EMERGENCY PHYSICIAN Emergency Medicine; OTHER PHYSICIAN Internal Medicine
DX: D68.32 Hemorrhagic disorder due to extrinsic circulating anticoagulants (principal); F02.811 Dementia in other diseases classified elsewhere, unspecified severity, with agitation; F02.818 Dementia in other diseases classified elsewhere, unspecified severity, with other behavioral disturbance; I48.21 Permanent atrial fibrillation; I50.32 Chronic diastolic (congestive) heart failure; F02.84 Dementia in other diseases classified elsewhere, unspecified severity, with anxiety; F02.83 Dementia in other diseases classified elsewhere, unspecified severity, with mood disturbance; K92.2 Gastrointestinal hemorrhage, unspecified; N18.32 Chronic kidney disease, stage 3b; E03.9 Hypothyroidism, unspecified; F32.A Depression, unspecified; G30.9 Alzheimer's disease, unspecified; K21.9 Gastro-esophageal reflux disease without esophagitis; Z66 Do not resuscitate; E78.00 Pure hypercholesterolemia, unspecified
CPT/HCPCS: 80048; 80053; 80162; 85014; 85018; 85027; 85610; 85730; 86850; 86900; 86901; 92526; 92610; 99285

== ENCOUNTER 2024-05-12 22:38 | Inpatient (IN) | payer MEDICARE, OTHER, SELFPAY ==
[2024-05-12 20:13] VITALS: BP 128/55
[2024-05-12 20:15] VITALS: BP 128/55
[2024-05-12 20:35] LABS: % Basophils 0.5 % (0-2); % Eosinophils 0.1 % (0-6); % Immature Granulocytes 0.4 % (0-0.5); % Lymphocytes 26.2 % (20.5-51.1); % Monocytes 10.3 % (1.7-9.3); % Neutrophils 62.5 % (42.2-75.2); Absolute Monocytes 0.8 10^3/uL (0.1-0.6); Absolute Neutrophils 4.7 10^3/uL (1.4-6.5); Hematocrit 35.4 % (37.0-47.0); Hemoglobin 11.9 g/dL (12.0-16.0); Mean Corp Hgb Conc. 33.6 g/dL (33.0-37.0); Mean Corpuscular Hgb 31.7 pg (27.0-31.0); Mean Corpuscular Volume 94.4 fL (81.0-99.0); Mean Platelet Volume 10.7 fL (7.4-10.4); Nucleated Red Blood Cells % 0 %; Platelet Count 181 10^3/uL (130-400); Red Blood Cell Count 3.75 10^6/uL (4.20-5.40); Red Cell Dist. Width 13.6 % (11.5-14.5); White Blood Cell Count 7.5 10^3/uL (4.8-10.8)
[2024-05-12 20:55] LABS: ALT (SGPT) 14 U/L (0-35); AST (SGOT) 23 U/L (14-36); Albumin 3.4 g/dl (3.5-5.0); Alkaline Phosphatase 99 U/L (38-126); Blood Urea Nitrogen 27 mg/dl (7-17); Calcium 8.5 mg/dl (8.4-10.2); Carbon Dioxide 23 mmol/L (22-30); Chloride 103 mmol/L (98-107); Glucose 149 mg/dl (70-99); Potassium 3.8 mmol/L (3.5-5.1); Sodium 136 mmol/L (135-145); Total Bilirubin 0.7 mg/dl (0.2-1.3); Total Protein 6.2 g/dl (6.3-8.2); eGFR 48.63
[2024-05-12 21:00] VITALS: BP 124/48
[2024-05-12 21:00] LABS: Troponin I 0.043 ng/ml
--- NOTE | 2024-05-12 21:18 | ED.GENMED ---
History of Present Illness
General
Chief Complaint: Chest Problem
Source: patient
Exam Limitations: none
Time Seen by Provider: 05/12/24 20:52
Nursing documentation reviewed up to this point in time: agreed with
History of Present Illness
History of Present Illness:
88-year-old female presents emergency department due to having chest pain. EMS reports that she told my nurse that she was having chest pain. She had described as acid reflux. At this time she denies any pain.
Past History
Past History
ED Past Medical History: Arrthythmia, CHF, Psychiatric and Other (Dementia)
ED Past Surgical History: Other
Social History
Tobacco: Non-smoker
Alcohol: None
Drug: None
Living: snf
Review of Systems
Review of Systems
Allergies reviewed?: Yes
Unable to obtain full review of systems at this time due to: dementia
All Other Systems: Not applicable
Phy Exam
Physical Exam
Physical Exam:
Physical Exam
General: no apparent distress, not acutely ill
Neck: supple. no meningeal signs. normal posterior pharynx
Heart: s1/s2 bradycardia, 3/6 systolic murmur. equal radial
pulses.
HEENT: Pupils equal round reactive to light, EOMI
Lungs: no acute respiratory distress. clear bilaterally
Abdomen: normal bowel sounds. not tender. no CVAT
Neuro: alert and oriented to person and place. no focal neurological deficits cranial nerves II through XII intact
Skin: no rash
Psychiatric: well kept. interactive and cooperative
Extremities: no edema. no calf tenderness. negative homans. good distal pulses
Course
Orders/Labs/Results
Orders:
Orders
05/12/24 20:11
Electrocardiogram (*1) Urgent
Reason for Study: Chest Pain
EKG- Treatment ONCE
05/12/24 20:20
Cardiac Monitoring- Treatment ONCE
05/12/24 20:25
CMP [Comprehensive Metabolic Panel] Urgent
Complete Blood Count/With Diff Urgent
Digoxin Urgent
Comment: ADD ON
Troponin I Urgent
05/12/24 21:24
Add On- LAB Urgent
Tests Added?: digoxin
Abnormal Lab Results
05/12/24
20:25
RBC 3.75 L 10^6/uL
(4.20-5.40)
Hgb 11.9 L g/dL
(12.0-16.0)
Hct 35.4 L %
(37.0-47.0)
MCH 31.7 H pg
(27.0-31.0)
MPV 10.7 H fL
(7.4-10.4)
Absolute Monos (auto) 0.8 H 10^3/uL
(0.1-0.6)
Monocytes % 10.3 H %
(1.7-9.3)
BUN 27 H mg/dl
(7-17)
Creatinine 1.1 H mg/dL
(0.6-1.0)
Glucose 149 H mg/dl
(70-99)
Troponin I 0.043 H* ng/ml
Total Protein 6.2 L g/dl
(6.3-8.2)
Albumin 3.4 L g/dl
(3.5-5.0)
05/12/24 20:25
05/12/24 20:25
Vital Signs
Initial and Last Documented VS:
Initial Vital Signs
BP
128/55
05/12/24 20:13
Last Documented Vital Signs
Temp Pulse Resp BP Pulse Ox
98.5 F 47 26 124/48 96
05/12/24 20:15 05/12/24 21:30 05/12/24 21:30 05/12/24 21:00 05/12/24 21:30
MDM/Problems Addressed
Differential Diagnosis Includes:
ACS, pneumonia, digoxin toxicity, atrial fibrillation with slow ventricular response
MDM/Problems Addressed:
88-year-old female with atrial fibrillation with slow ventricular response, chest pain. Unclear etiology. Will evaluate for digoxin toxicity. Discussed with Dr. Rubio. Recommends trending troponins, holding digoxin and diltiazem. Admit to
hospitalist.
Chronic conditions affecting care: Cardiomyopathy and Arrhythmia
Acute Exacerbation and/or Progression of Chronic Illness: Cardiomyopathy and Arrhythmia
*Pulse Oximetry
Patient hypoxic: no
*EKG
Interpreted by ED Provider?: Yes
EKG Intrepretation Date: 05/12/24
EKG Intrepretation Time: 20:15
Interpretation: abnormal
Comparison EKG: changes noted
Heart Rate: 49
Rate: bradycardiac
Rhythm: a-fib
[place]: normal axis
Interval: normal interval
QRS Pattern: normal QRS
Ischemia: non-specific ST changes
*[place] Interpretation
Rate: bradycardiac
Interpretation: abnormal
Heart Rate: 45
Rhythm: a-fib
*Critical Care Note
Total Time (30-74mins, 75-104mins- exclusive of procedures): 30
comment:
Critical care statement: A total of 30 minutes of critical care time was provided for this patient. This includes management of unstable vital signs, evaluation of the patient at bedside, reviewing the patient's pertinent medical records, discussion
with consultants, review of old EKGs and review of pertinent medical records. This time with separate from time utilized to perform the aforementioned documented procedures
Data Reviewed
Review of Other/Old Records Reveals: Testing (Echocardiogram 04/14/2024 shows normal biventricular size and systolic function without regional wall motion abnormality, aortic valve calculated at 0.7 cm�)
Source: records
Patient Management
Social determinants of health affecting care: Living situation
Discussion with other providers: Hospitalist and [employer] Seamstress (cardiology, Dr. Chaudhry)
Escalation/DeEscalation of care consider admission/obs:
Admit indicated
ED Attending Note
-
Portions of this chart may have been created with voice recognition software.� Occasional wrong word or��sound alike� substitutions may have occurred due to the inherent limitations of voice recognition software.
Discharge Plan
Departure
Patient Disposition: Admit
Date of Disposition: 05/12/24
Time of Disposition: 21:33
Admit to: IMU
Presentation/result/management discussed w/ accepting MD/DO: Hospitalist
Patient with high blood pressure during this ER visit?: Yes
Condition: Fair
Discharge Problem:
Atrial fibrillation with slow ventricular response, Chest pain
Prescriptions:
No Action
atorvastatin 10 mg Tablet
10 mg PO DAILY
levothyroxine 25 mcg Tablet
25 mcg PO DAILY
bisacodyl 10 mg Suppository
10 mg [place] DAILYPRN PRN (Reason: if no bm aftr mom)
Fleet Enema 19-7 gram/118 mL Enema
118 ml [place] DAILYPRN PRN (Reason: if no bm aftr dulolcax)
digoxin 125 mcg (0.125 mg) Tablet
125 mcg PO DAILY
desipramine 100 mg Tablet
100 mg PO HS
diltiazem HCl 120 mg Tablet Extended Release 24 Hr
120 mg PO DAILY
memantine 5 mg Tablet
5 mg PO BID
apixaban 5 mg Tablet
5 mg PO BID
tamsulosin 0.4 mg Capsule
0.4 mg PO DAILY Qty: 30 0RF
acetaminophen [Tylenol Extra Strength] 500 mg Tablet
1,000 mg PO TID MDD 3000mg Qty: 60 0RF
melatonin 3 mg Tablet
3 mg PO HS
sertraline 25 mg Tablet
25 mg PO DAILY
potassium chloride [Klor-Con M15] 15 mEq Tablet,Er Particles/Crystals
20 meq PO DAILY
cholecalciferol (vitamin D3) [Vitamin D3] 25 mcg (1,000 unit) Tablet
50 mcg PO DAILY
furosemide 80 mg Tablet
80 mg PO DAILY Qty: 60 0RF
lidocaine 4 % adhesive patch,medicated
2 patch topical DAILYPRN PRN (Reason: b/l calf)
Rx Instructions:
Lower leg calf pain, 1 patch each leg as necessary.
doxepin 25 mg Capsule
25 mg PO HS
calcium carbonate [Calcium 600] 600 mg calcium (1,500 mg) Tablet
600 mg PO BID
famotidine 20 mg Tablet
20 mg PO DAILY
magnesium hydroxide [Milk of Magnesia] 400 mg/5 mL Suspension
30 ml PO [id number] PRN (Reason: no bm 3 days)
Interventions
Interventions:
*Risk Screen - Suicide Last Done: 05/12/24 20:15
*General Assessment Last Done: 05/12/24 20:15
*Neglect/Abuse Screening Last Done: 05/12/24 20:15
ED- Fall Risk Assessment Last Done: 05/12/24 21:36
*ED COVID-19 Vaccine History Last Done: 05/12/24 20:15
ED- Cardiac Assessment Last Done: 05/12/24 21:36
ED- Pulmonary Assessment Last Done: 05/12/24 21:36
Discharge Date and Time
Print Language: CANADIAN
--- NOTE | 2024-05-12 21:47 | HPS.HSE ---
Family Physician
-
Family Physician:
Chief Complaint
-
chest pain
History of Present Illness
88-year-old female with PMH for atrial fib, HLD, depression, anxiety, dementia, hypothyroidism presented with chest pain. at present she does not have chest pain. denied ROSA, dizzy or syncope.denied fever, chills, sob.denied abdominal pain,n,v,d.
denied dysuria or hematuria.
Upon arrival she was noted in A-fib with slow RVR. Admitting for further management
Medical History
Past Medical History
Past Medical History: Reports Other
Additional Past Medical History:
Dementia, Alzheimer's, CHF, A-fib
Past Surgical History: Reports None
Social History
Tobacco: Non-smoker
Alcohol: None
Drug: None
Living: Assisted Living
Family History
Family History: Not pertinent
Allergies / Home Medications
Allergies reflects when Allergies were last updated in [facility].
Home Medications with original date entered in [facility]
Allergy/Medication List:
Allergies
Allergy/AdvReac Type Severity Reaction Status Date / Time
aspirin Allergy Unknown Verified 05/12/24 20:20
codeine Allergy Unknown Verified 05/12/24 20:20
metronidazole Allergy Unknown Verified 05/12/24 20:20
sulfadiazine Allergy Unknown Verified 05/12/24 20:20
Home Medications
apixaban 5 mg tablet 5 mg PO BID Blood Clot Prevention/Tx 09/28/23
atorvastatin 10 mg tablet 10 mg PO DAILY High Cholesterol 09/28/23
bisacodyl 10 mg rectal suppository 10 mg [place] DAILYPRN PRN if no bm aftr mom 09/28/23
desipramine 100 mg tablet 100 mg PO HS sleep, mental health 09/28/23
digoxin 125 mcg (0.125 mg) tablet 125 mcg PO DAILY Heart Disease/Condition 09/28/23
diltiazem HCl 120 mg tablet,extended release 24 hr 120 mg PO DAILY Heart Disease/Condition 09/28/23
levothyroxine 25 mcg tablet 25 mcg PO DAILY Thyroid 09/28/23
memantine 5 mg tablet 5 mg PO BID dementia 09/28/23
sodium phosphates 19 gram-7 gram/118 mL enema (Fleet Enema) 118 ml [place] DAILYPRN PRN if no bm aftr dulolcax 09/28/23
acetaminophen 500 mg tablet (Tylenol Extra Strength) 1,000 mg (2 x 500 mg) PO TID Anti-inflammatory #60 tabs 10/03/23
tamsulosin 0.4 mg capsule 0.4 mg PO DAILY Urinary issue #30 caps 10/03/23
cholecalciferol (vitamin D3) 25 mcg (1,000 unit) tablet (Vitamin D3) 50 mcg PO DAILY Supplement 04/13/24
melatonin 3 mg tablet 3 mg PO HS Sleep 04/13/24
potassium chloride 15 mEq tablet,extended release(part/cryst) (Klor-Con M) 20 meq PO DAILY Supplement 04/13/24
sertraline 25 mg tablet 25 mg PO DAILY Mental Health/Anxiety 04/13/24
furosemide 80 mg tablet 80 mg PO DAILY #60 tabs 04/19/24
lidocaine 4 % topical patch 2 patch topical DAILYPRN PRN b/l calf 04/29/24
calcium carbonate (Calcium 600) 600 mg PO BID 05/12/24
doxepin 25 mg capsule 25 mg PO HS 05/12/24
famotidine 20 mg tablet 20 mg PO DAILY 05/12/24
magnesium hydroxide 400 mg/5 mL oral suspension (Milk of Magnesia) 30 ml PO [id number] PRN no bm 3 days 05/12/24
Review of Systems
-
Constitutional: Reports No Symptoms
EENT: Reports No Symptoms
Respiratory: Reports No Symptoms
Cardiac: Reports No Symptoms
Abdomen/GI: Reports No Symptoms
: Reports No Symptoms
Musculoskeletal: Reports No Symptoms
Skin: Reports No Symptoms
Neurological: Reports No Symptoms
Endocrine: Reports No Symptoms
Hematologic/Lymphatic: Reports No Symptoms
Psych: Reports No Symptoms
Physical Exam
Vital Signs
Vital Signs
Temp Pulse Resp BP Pulse Ox
98.5 F 47 26 124/48 96
05/12/24 20:15 05/12/24 21:30 05/12/24 21:30 05/12/24 21:00 05/12/24 21:30
Physical Exam
General: Well Developed, Well Nourished and No Apparent Distress
HEENT: NormoCephalic, Moist mucous membranes and Atraumatic
Respiratory: Clear
Cardiac: S1/S2, Irregular Rhythm and Bradycardia; No Murmur or Rub
GI: Soft, Non Tender, Non Distended and Normal Bowel Sounds; No Organomegaly
Rectal: Deferred by Provider
Musculoskeletal: No Clubbing, No Cyanosis and No Edema
Skin: No Rash
Neuro: Nonfocal/grossly intact
Psych: Calm
Laboratory Results
-
05/12/24 20:25
05/12/24 20:25
Laboratory Results
Total Bilirubin 0.7 mg/dl (0.2-1.3) 05/12/24 20:25
AST 23 U/L (14-36) 05/12/24 20:25
ALT 14 U/L (0-35) 05/12/24 20:25
Alkaline Phosphatase 99 U/L (38-126) 05/12/24 20:25
Troponin I 0.043 ng/ml H* 05/12/24 20:25
Data Reviewed
-
Lab Data: Labs Reviewed by me
Impression/Plan
-
# Slow A-fib
# Chest pain
-Hold digoxin, diltiazem
-Continue Eliquis
-Trend troponin
-Cardiology consult
# CKD stage IIIb
-Creatinine 1.1, BUN 27
-Continue to monitor
# Chronic HFpEF
-Not in acute exacerbation
-Lasix continued
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
# Depression/anxiety
-continue doxepin, desipramine, memantine, sertraline
# Hyperlipidemia-continue atorvastatin
# Hypothyroidism-continue Synthroid
# GERD
-iv ppi
# History of left mastectomy
# DVT prophylaxis-SCD
# DNR
[2024-05-12 22:00] VITALS: BP 140/63
[2024-05-12 22:02] LABS: Digoxin 1.7 ng/ml (0.8-2.0)
--- NOTE | 2024-05-12 22:46 | W.PN.UPDATE ---
Update Note
Progress Note Update
This note serves as an addendum to the H&P by crime scene evidence technician ASH Milady WANG
HPI
88F Res of NH, Dementia, HX perm AF , chr Eliquis and Dilatiazem CD, HX chr HFpEF, paradoxical low-flow low gradient with MIAH 0.7 sqcm hypothyroid seen at ER;
- report CP at ID but denied any CP at ER; TPNI 0.043
- Upon arrival she was noted slow A Fib with VR in 40s
PHX; see above
Vital Signs
Temp Pulse Resp BP Pulse Ox
98.5 F 47 26 124/48 96
05/12/24 20:15 05/12/24 21:30 05/12/24 21:30 05/12/24 21:00 05/12/24 21:30
PE
General: NAD, conversant, pleasantly confused
HEENT: Moist mucous membranes
Respiratory: Clear
Cardiac: S1/S2, Irregular Rhythm and Bradycardia; Loud SM at LUSB
GI: Soft, Non Tender, Non Distended
Rectal: Deferred by Provider
MS: No Edema
Skin: No Rash
Neuro: Nonfocal/grossly intact
Psych: confused
Abnormal Lab
05/12/24
20:25
RBC 3.75 L
Hgb 11.9 L
Hct 35.4 L
MCH 31.7 H
MPV 10.7 H
Absolute Monos (auto) 0.8 H
Monocytes % 10.3 H
BUN 27 H
Creatinine 1.1 H
Glucose 149 H
Troponin I 0.043 H*
Total Protein 6.2 L
Albumin 3.4 L
EKG
UNDETERMINED RHYTHM
SEPTAL INFARCT (CITED ON OR BEFORE 12-APR-2024)
INFERIOR INFARCT , AGE UNDETERMINED
ABNORMAL ECG
WHEN COMPARED WITH ECG OF 13-APR-2024 08:38,
CURRENT UNDETERMINED RHYTHM PRECLUDES RHYTHM COMPARISON, NEEDS REVIEW
NONSPECIFIC T WAVE ABNORMALITY NOW EVIDENT IN ANTERIOR LEADS
04/14/24 TTE
- LVEF 60-65%.
- Stage II diastolic dysfunction
- Paradoxical low-flow low gradient aortic stenosis (peak/mean gradient 54/32 mmHg, MIAH 0.7 cm2, SVi 28.2, DVI 0.22).
Last hospitalist admission: Date of Admission:
04/29/24 - Date of Discharge: 05/02/24
DC DX: Suspected GI bleed unclear etiology since resolved No significant Anemia
ASSESSMENT & PLAN
Slow A Fib
- Relatively hi Dig level @ 1,7 for elderly
- hold digoxin
- Hold diltiazem
- cont. Eliquis
Suspect cardiodynamic state related CP in setting of slow AF due to relatively hi Dig level + Diltiazem plus low cardiac output state due to underlying low flow low gradient with MIAH 0.7 sqcm
Mildly elevated TPNI presumed NIMI
CP NOS EKG; resolved CP
- Trend TPNI
- CBC card consult
Paradoxical low flow low gradient with MIAH 0.7 sqcm
Peak/mean gradient 54/32 mmHg
- CBC card consult
Chronic diastolic HF
- cont. IV Lasix
Hyperlipidemia
-continue atorvastatin
Hypothyroidism
-continue Synthroid
Anxiety/depression
-continue sertraline desipramine, doxepin
Dementia
-continue Namenda
Chr condition: not active
Cystic pancreatic mass-outpatient MRI
Nephrolithiasis
Moderate L1 compression fracture
Hypodense left renal lesion-outpatient CT scan dedicated to the kidneys with and without contrast
Gallstones
HX left mastectomy
DVT Px: Eliquis
DNR
Ip TLM
[2024-05-12 23:00] VITALS: BP 140/66
[2024-05-13] VITALS (9 sets, daily range): BP systolic 107–142; BP diastolic 59–91; BMI 27.5
[2024-05-13] MEDS: SINEQUAN 25 MG PO ×2 (00:06→21:29)
[2024-05-13] MEDS: NORPRAMIN 100 MG PO ×2 (00:06→21:27)
[2024-05-13] MEDS: MELATONIN 3 MG PO ×2 (00:06→21:29)
--- NOTE | 2024-05-13 00:12 | EDRN ---
Patients brief changed and clean one placed on with a purwick in place, turned down lights and gave patient night time medicine, patient not remembering why she is here, keeps saying shes 'dying and not going to make it' then asks what he name is
and why she is here again. reminded patient why she is here and wrote her name and why she came in on the board for her to see to help ease her mind, call ellis in reach, will continue to monitor, VSS on the monitor.
[2024-05-13 03:42] LABS: Troponin I 0.039 ng/ml
[2024-05-13] MEDS: SYNTHROID 25 MCG PO (05:50)
--- NOTE | 2024-05-13 08:03 | CON.CAR ---
Consultation
Consultation Request
Date/Time Consultation Requested: 05/12/24 @ 23:10
Date/Time Consultation Performed: 05/13/24 @ 8:04
Requesting Provider: KEEGAN Woods
Performing Provider: Imer Rubio MD
Reason for Consultation: troponin elevation
Medical History
-
Chief Complaint: troponin elevation
History of Present Illness:
88 y/o female with dementia, Afib on Eliquis, HFpEF, GERD, hypothyroidism, dyslipidemia, anxiety/depression, and moderate to severe who is here from [place] after she reported CP per chart. Patient is not a good historian due to her dementia and does
not recall this. She denies any CP and is feeling well at the time of my assessment. Troponin 0.043 -> 0.039. EKG with slow regularized afib and scooped ST segments in the lateral leads.
Past Medical History
Past Medical History: Arrhythmias, CHF, GERD, Hypothyroidism, Valvular Disease and Psychiatric (as above)
Social History
Living: [facility]
Family History
Family History: Reviewed & Not Pertinent
Allergies / Home Medications
Allergy/AdvReac Type Severity Reaction Status Date / Time
aspirin Allergy Unknown Verified 05/12/24 20:20
codeine Allergy Unknown Verified 05/12/24 20:20
metronidazole Allergy Unknown Verified 05/12/24 20:20
sulfadiazine Allergy Unknown Verified 05/12/24 20:20
�Medication �Instructions �Recorded �Confirmed �Type
apixaban 5 mg tablet 5 mg PO BID Blood Clot 09/28/23 05/12/24 History
Prevention/Tx
atorvastatin 10 mg tablet 10 mg PO DAILY High Cholesterol 09/28/23 05/12/24 History
bisacodyl 10 mg rectal suppository 10 mg [place] DAILYPRN PRN if no bm 09/28/23 05/12/24 History
aftr mom
desipramine 100 mg tablet 100 mg PO HS sleep, mental health 09/28/23 05/12/24 History
digoxin 125 mcg (0.125 mg) tablet 125 mcg PO DAILY Heart 09/28/23 05/12/24 History
Disease/Condition
diltiazem HCl 120 mg 120 mg PO DAILY Heart 09/28/23 05/12/24 History
tablet,extended release 24 hr Disease/Condition
levothyroxine 25 mcg tablet 25 mcg PO DAILY Thyroid 09/28/23 05/12/24 History
memantine 5 mg tablet 5 mg PO BID dementia 09/28/23 05/12/24 History
sodium phosphates 19 gram-7 118 ml [place] DAILYPRN PRN if no bm 09/28/23 05/12/24 History
gram/118 mL enema (Fleet Enema) aftr dulolcax
acetaminophen 500 mg tablet 1,000 mg (2 x 500 mg) PO TID 10/03/23 05/12/24 Rx
(Tylenol Extra Strength) Anti-inflammatory #60 tabs
tamsulosin 0.4 mg capsule 0.4 mg PO DAILY Urinary issue #30 10/03/23 05/12/24 Rx
caps
cholecalciferol (vitamin D3) 25 50 mcg PO DAILY Supplement 04/13/24 05/12/24 History
mcg (1,000 unit) tablet (Vitamin
D3)
melatonin 3 mg tablet 3 mg PO HS Sleep 04/13/24 05/12/24 History
potassium chloride 15 mEq 20 meq PO DAILY Supplement 04/13/24 05/12/24 History
tablet,extended
release(part/cryst) (Klor-Con M)
sertraline 25 mg tablet 25 mg PO DAILY Mental 04/13/24 05/12/24 History
Health/Anxiety
furosemide 80 mg tablet 80 mg PO DAILY #60 tabs 04/19/24 05/12/24 Rx
lidocaine 4 % topical patch 2 patch topical DAILYPRN PRN b/l 04/29/24 05/12/24 History
calf
calcium carbonate (Calcium 600) 600 mg PO BID 05/12/24 05/12/24 History
doxepin 25 mg capsule 25 mg PO HS 05/12/24 05/12/24 History
famotidine 20 mg tablet 20 mg PO DAILY 05/12/24 05/12/24 History
magnesium hydroxide 400 mg/5 mL 30 ml PO [id number] PRN no bm 3 days 05/12/24 05/12/24 History
oral suspension (Milk of Magnesia)
Review of Systems
-
Unable to obtain full review of systems at this time due to: Dementia
Physical Exam
Vital Signs
Temp Pulse Resp BP Pulse Ox
98.4 F 56 19 142/64 96
05/13/24 03:06 05/13/24 03:06 05/13/24 03:06 05/13/24 03:06 05/13/24 03:06
Lab Results
05/12/24 20:25
05/12/24 20:25
Troponin I 0.039 ng/ml H* 05/13/24 02:40
Physical Exam
General: No Apparent Distress and Comfortable
Respiratory: Clear and Non Labored Respirations
Cardiac: S1/S2, Irregular Rhythm and Murmur; Negative Peripheral Edema
Impression / Plan
-
88 y/o female with dementia, Afib on Eliquis, HFpEF, GERD, hypothyroidism, dyslipidemia, anxiety/depression, and paradoxical low-flow low gradient who is here from [place] after she reported chest pain per chart. On admission she was found to have
slow regularized atrial fibrillation.
Permanent atrial fibrillation
-ECG is consistent with digitalis effect with slow ventricular rate and regularized fib. Dig level 1.7
-Stop digoxin
-Continue to hold diltiazem given that she is still bradycardic. Resume as tolerated.
-Continue apixaban 5 mg twice daily for anticoagulation.
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
-She is a poor historian but denies chest pain
-Low-level troponins in the setting of CKD, atrial fibrillation, and severe AAS
-Okay to stop trending troponins
Paradoxical low-flow low gradient aortic stenosis
-Likely severe based on MIAH 0.7 cm� and harsh systolic murmur
-Not a good candidate for valve replacement as she is bedbound and does not reliably report symptoms
Heart failure with preserved ejection fraction
-Examines euvolemic. Weight stable from last admission.
-Continue Lasix 80 mg p.o. daily
Data Reviewed
-
EKG: Tracing Personally Visualized and interpreted, Discussed with Physician and Discussed with Patient
Medical Tests (Nuc Med, Echo etc): Report Reviewed by me and Discussed with Physician
Labs: Labs Reviewed by me and Discussed with Physician
Old Records: Reviewed
[2024-05-13] MEDS: LIPITOR 10 MG PO (08:51)
[2024-05-13] MEDS: ZOLOFT 25 MG PO (08:51)
[2024-05-13] MEDS: KCL 20 MEQ PO (08:52)
[2024-05-13] MEDS: LASIX 80 MG PO (08:52)
[2024-05-13] MEDS: NAMENDA 5 MG PO ×2 (08:52→21:29)
[2024-05-13] MEDS: FLOMAX 0.4 MG PO (08:52)
[2024-05-13] MEDS: PEPCID 20 MG PO (08:53)
[2024-05-13 09:12] LABS: Troponin I 0.046 ng/ml
[2024-05-13] MEDS: ELIQUIS 5 MG PO ×2 (10:04→21:28)
--- NOTE | 2024-05-13 10:47 | CM ---
Patient is a residential resident at [facility]
Spoke with Jena she is a bed hold.
IA completed. Obtained by Jena BARBER
PMH: afib, hdl, dementia, depression
Patient resides at [facility]
PLOF: per Jena wheelchair bound
DME: wheelchair
PCP: Zack Palomo
Pharmacy: [facility] [phone]
[facility]
Report: [phone]
--- NOTE | 2024-05-13 11:26 | W.PN.HOSP.TC ---
Addendum entered and electronically signed by Paulina Roa MD 05/13/24 12:41:
I saw and evaluated the patient. I reviewed the resident�s note and agree with findings and plan as documented in the resident�s note.
A/P:
# CP, resolved
# Likely nonischemic myocardial injury
# Permanent slow atrial fibrillation
Digoxin level elevated at 1.7 on admission, hold further digoxin
Hold diltiazem for slow heart rate
Continue Eliquis for anticoagulation
Patient has history of hypothyroidism, follow TSH with reflex to T4 level
# Severe aortic stenosis
Not a good candidate for valve replacement due to general deconditioning and dementia per card
# Chronic Heart failure with preserved ejection fraction
stable
Continue home dose of Lasix
Other medical conditions
# Dementia-continue Namenda
# Anxiety depression-continue sertraline and despiramine
# Hyperlipidemia-continue statin
# History of cystic pancreatic mass
outpatient MRI
# Nephrolithiasis
# Left renal lesion outpatient evaluation
# Gallstones
# Moderate L1 compression fracture
DVT prophylaxis-Eliquis
CODE STATUS-DNR
Original Note:
Today's Communication/Plan
-
TSH reflex to T4
COVID and flu testing
Add Mucinex
Continue to monitor the heart rate
Assessment / Plan
Assessment / Plan
Impression
Patient is not 88-year-old female, resident of [facility], history of dementia, history of permanent atrial fibrillation, presented with chest pain that had resolved by the time she came to ER, troponin I 0.04, EKG done that showed slow
atrial fibrillation with ventricular rate in 40s. No active ST-T wave abnormalities. Patient takes digoxin, diltiazem and Eliquis for atrial fibrillation. Digoxin levels raised to 1.7. Stopped digoxin, held diltiazem and continued Eliquis and
admitted for slow A-fib secondary to increased levels of digoxin.
Assessment/plan
#Permanent atrial fibrillation with onset of slow atrial fibrillation secondary to increased levels of digoxin
Patient has a digoxin level of 1.7 which is increased
ECG done shows irregular rhythm with a ventricular rate in 40s to 50s
Rhythm changes consistent with abnormal levels of digitalis
Discontinue digoxin
Hold diltiazem for now and continue as able since she is bradycardic for now
Continue Eliquis for anticoagulation
Patient has history of hypothyroidism, can repeat TSH with reflex to T4, to assess as patient bradycardic
# Nonischemic myocardial injury
Patient is a poor historian possibly due to dementia
As per the [facility] patient had chest pain, patient denied any chest pain in the ER and has no chest pain today as well
Troponin levels checked in the ER were 0.04, on trending the next level was 0.03
Since no active ischemic changes, it could be related to nonischemic myocardial injury
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
Stop trending troponins
#Aortic stenosis
Patient has a harsh systolic murmur on the left sternal border
Aortic valve area 0.7 cm�, that suggests severe aortic stenosis
Not a good candidate for valve replacement due to general deconditioning and dementia
#Heart failure with preserved ejection fraction
Patient does not appear to be in fluid overload
Can continue home dose of Lasix as able
#Productive cough
Patient had productive cough with mucus production
Test for flu and COVID
Can add Mucinex
# Other medical conditions
Dementia-continue Namenda
Anxiety depression-continue sertraline and despiramine
Hyperlipidemia-continue statin
History of cystic pancreatic mass-outpatient MRI
Nephrolithiasis
Left renal lesion outpatient evaluation
Gallstones
Moderate L1 compression fracture
DVT prophylaxis-Eliquis
CODE STATUS-DNR
Anticipated Discharge: 24 - 48 hours
Subjective/Interval History
-
Date of Service: May 13, 2024
Patient unable to provide history due to dementia, states no chest pain or palpitations
Objective Data
-
Vital Signs:
Vital Signs
Temp Pulse Resp BP Pulse Ox
97.7 F 56 16 123/60 95
05/13/24 11:19 05/13/24 11:19 05/13/24 11:19 05/13/24 11:19 05/13/24 11:19
I&O
05/12/24 05/13/24 05/14/24
06:59 06:59 06:59
Intake Total 320 / 320
Balance 320 / 320
Review of Systems
-
All other systems: Reviewed and negative
Physical Exam
-
General: Well Developed, No Apparent Distress and Comfortable
HEENT: Normocephalic and Atraumatic
Respiratory: Clear to Auscultation
Cardiac: S1/S2, Irregular Rhythm and Murmur (Systolic murmur on left sternal border)
GI: Soft, Nontender and Normal Bowel Sounds
Musculoskeletal: No Clubbing, No Cyanosis and No Edema
Neuro: Awake, No Motor Deficits and Other (Not oriented to time or place)
[2024-05-13 12:30] LABS: COVID-19 Antigen Negative (Negative)
[2024-05-13 12:48] LABS: TSH Reflex To Free T4 1.95 uIU/ml (0.47-4.68)
--- NOTE | 2024-05-13 14:20 | PTCARENOTE ---
Imer Pacheco (cardio) made aware of pt Georgi, having episodes of sinus sophia. Pt is asymptomatic at this time. per Notifnorah if she starts having longer pauses (greater than five) or becomes symptomatic. she should stay in bed. plan of care
ongoing.
[2024-05-13 14:40] LABS: Troponin I 0.037 ng/ml
--- NOTE | 2024-05-13 15:57 | PTCARENOTE ---
pt troponin 0.037, made aware and per Can stop trending.
[2024-05-14] VITALS (7 sets, daily range): BP systolic 110–165; BP diastolic 61–83; BMI 27.1
[2024-05-14] MEDS: SYNTHROID 25 MCG PO (05:14)
--- NOTE | 2024-05-14 07:52 | W.PN.HOSP.TC ---
Addendum entered and electronically signed by Paulina Roa MD 05/14/24 13:52:
I personally performed a history and physical exam of the patient and discussed management with the resident. I reviewed the resident's note and agree with the documented findings and plan of care HPI/CC.
A/P:
# CP, resolved
# Nonischemic myocardial injury
# Permanent slow atrial fibrillation
Digoxin level elevated at 1.7 on admission, stopped further digoxin
Ok to resume Cardizem tmr per card
Continue Eliquis for anticoagulation
TSH WNL at 1.95
# Severe aortic stenosis
Not a good candidate for valve replacement due to general deconditioning and dementia per card
# Chronic Heart failure with preserved ejection fraction
stable
Continue home dose of Lasix
Other medical conditions
# Dementia-continue Namenda
# Anxiety depression-continue sertraline and despiramine
# Hyperlipidemia-continue statin
# History of cystic pancreatic mass
outpatient MRI
# Nephrolithiasis
# Left renal lesion outpatient evaluation
# Gallstones
# Moderate L1 compression fracture
DVT prophylaxis-Eliquis
CODE STATUS-DNR
Original Note:
Today's Communication/Plan
-
replete potassium
Add mucinex and tessalon perles
Assessment / Plan
Assessment / Plan
Impression
Patient is not 88-year-old female, resident of [facility], history of dementia, history of permanent atrial fibrillation, presented with chest pain that had resolved by the time she came to ER, troponin I 0.04, EKG done that showed slow
atrial fibrillation with ventricular rate in 40s. No active ST-T wave abnormalities. Patient takes digoxin, diltiazem and Eliquis for atrial fibrillation. Digoxin levels raised to 1.7. Stopped digoxin, held diltiazem and continued Eliquis and
admitted for slow A-fib secondary to increased levels of digoxin.
Assessment/plan
#Permanent atrial fibrillation with onset of slow atrial fibrillation secondary to increased levels of digoxin
Patient has a digoxin level of 1.7 which is increased
Patient was very bradycardic yesterday with heart rate running in 30s, asymptomatic, today heart rate above 70
Rhythm changes consistent with abnormal levels of digitalis
Discontinued digoxin
Diltiazem is on hold for now-continue as able, as per cardio recommendations
Continue Eliquis for anticoagulation
Follow TSH levels
# Nonischemic myocardial injury
Patient is a poor historian possibly due to dementia
[facility], patient denied any chest pain in the ER and has no chest pain today as well
Troponin levels checked in the ER were 0.04, on trending the next level was 0.03
Since no active ischemic changes, it could be related to nonischemic myocardial injury
Stop trending troponin levels
#Aortic stenosis
Patient has a harsh systolic murmur on the left sternal border
Aortic valve area 0.7 cm�, that suggests severe aortic stenosis
Not a good candidate for valve replacement due to general deconditioning and dementia as per cards
#Heart failure with preserved ejection fraction
Patient does not appear to be in fluid overload
Can continue home dose of Lasix as able
#Productive cough
Patient had productive cough with mucus production
Test for flu and COVID negative
Can add Mucinex
# Other medical conditions
Dementia-continue Namenda
Anxiety depression-continue sertraline and despiramine
Hyperlipidemia-continue statin
History of cystic pancreatic mass-outpatient MRI
Nephrolithiasis
Left renal lesion outpatient evaluation
Gallstones
Moderate L1 compression fracture
DVT prophylaxis-Eliquis
CODE STATUS-DNR
Anticipated Discharge: Within 24 hours
Subjective/Interval History
-
Date of Service: May 14, 2024
Discussed risks, patient is still confused but her heart rate is stable, did not require any intervention for her bradycardia, looks like digoxin effect is washing off, patient sleeping at the time of visit
Coughing alot today
Objective Data
-
Labs:
Laboratory Results
05/14/24
06:40
WBC Pending
Hgb Pending
Hct Pending
Plt Count Pending
Sodium Pending
Potassium Pending
Chloride Pending
Carbon Dioxide Pending
BUN Pending
Creatinine Pending
Glucose Pending
Calcium Pending
Vital Signs:
Vital Signs
Temp Pulse Resp BP Pulse Ox
98.4 F 107 20 132/83 97
05/14/24 03:31 05/14/24 03:31 05/14/24 03:31 05/14/24 03:31 05/14/24 03:31
I&O
05/13/24 05/14/24 05/15/24
06:59 06:59 06:59
Intake Total 320 / 320 1020 / 1020
Balance 320 / 320 1020 / 1020
Review of Systems
-
All other systems: Reviewed and negative
Physical Exam
-
General: Well Developed, Well Nourished and No Apparent Distress
HEENT: Normocephalic and Atraumatic
Respiratory: Clear to Auscultation and Other (No wheezes rhonchi or crepitation)
Cardiac: Irregular Rhythm and Murmur (Systolic murmur)
GI: Soft, Nontender and Normal Bowel Sounds
Musculoskeletal: No Clubbing, No Cyanosis and No Edema
Neuro: Nonfocal/Grossly Intact
Psych: Apparent Dementia
[2024-05-14 08:16] LABS: % Basophils 0.8 % (0-2); % Eosinophils 0.3 % (0-6); % Immature Granulocytes 0.4 % (0-0.5); % Lymphocytes 25.3 % (20.5-51.1); % Monocytes 12.2 % (1.7-9.3); Absolute Basophils 0.1 10^3/uL (0-0.2); Absolute Lymphocytes 1.9 10^3/uL (1.2-3.4); Absolute Monocytes 0.9 10^3/uL (0.1-0.6); Absolute Neutrophils 4.5 10^3/uL (1.4-6.5); Hematocrit 35.3 % (37.0-47.0); Hemoglobin 11.9 g/dL (12.0-16.0); Mean Corp Hgb Conc. 33.7 g/dL (33.0-37.0); Mean Corpuscular Hgb 31.4 pg (27.0-31.0); Mean Corpuscular Volume 93.1 fL (81.0-99.0); Mean Platelet Volume 11.1 fL (7.4-10.4); Nucleated Red Blood Cells % 0 %; Platelet Count 193 10^3/uL (130-400); Red Blood Cell Count 3.79 10^6/uL (4.20-5.40); Red Cell Dist. Width 13.7 % (11.5-14.5); White Blood Cell Count 7.3 10^3/uL (4.8-10.8)
[2024-05-14 08:50] LABS: Blood Urea Nitrogen 26 mg/dl (7-17); Calcium 8.3 mg/dl (8.4-10.2); Carbon Dioxide 27 mmol/L (22-30); Chloride 105 mmol/L (98-107); Estimated Creatinine Clearance 40 ml/min; Glucose 89 mg/dl (70-99); Potassium 3.4 mmol/L (3.5-5.1); Sodium 139 mmol/L (135-145); eGFR > 60.00
[2024-05-14] MEDS: ELIQUIS 5 MG PO ×2 (08:56→20:14)
[2024-05-14] MEDS: LASIX 80 MG PO (08:56)
[2024-05-14] MEDS: NAMENDA 5 MG PO ×2 (08:56→20:13)
[2024-05-14] MEDS: FLOMAX 0.4 MG PO (08:56)
[2024-05-14] MEDS: LIPITOR 10 MG PO (08:56)
[2024-05-14] MEDS: ZOLOFT 25 MG PO (08:57)
[2024-05-14] MEDS: KCL 20 MEQ PO ×2 (08:57→18:08)
[2024-05-14] MEDS: PEPCID 20 MG PO (08:57)
[2024-05-14] MEDS: KCL 270 MEQ IV (11:12)
--- NOTE | 2024-05-14 12:30 | PTCARENOTE ---
pt c/o of nausea, patient having productive cough with clear mucus. dr.aware Negrete and cough med ordered.
[2024-05-14] MEDS: ROBITUSSIN 200 MG PO (12:54)
[2024-05-14] MEDS: ZOFRAN 4 MG IV (12:54)
--- NOTE | 2024-05-14 13:25 | W.PN.CD ---
Addendum entered and electronically signed by Denilson Membreno MD 05/14/24 13:45:
Call with questions.
We will sign off.
Original Note:
Today's Communication / Plan
-
OK for home
Resume Dilt tomorrow
No more Digoxin
Our office will reach out for followup
Impression / Plan
-
88 y/o female with dementia, Afib on Eliquis, HFpEF, GERD, hypothyroidism, dyslipidemia, anxiety/depression, and paradoxical low-flow low gradient who is here from [place] after she reported chest pain per chart. On admission she was found to have
slow regularized atrial fibrillation.
Permanent atrial fibrillation
-ECG is consistent with digitalis effect with slow ventricular rate and regularized fib. Dig level 1.7
-Stop digoxin
- Resume dilt 05/15/2023
-Continue apixaban 5 mg twice daily for anticoagulation.
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
Paradoxical low-flow low gradient aortic stenosis
-Likely severe based on MIAH 0.7 cm� and harsh systolic murmur
-Not a good candidate for valve replacement as she is bedbound and does not reliably report symptoms
Heart failure with preserved ejection fraction
-Examines euvolemic. Weight stable from last admission.
-Continue Lasix 80 mg p.o. daily
Subjective: No complaints/very poor historian
Physical Exam
Vital Signs/Labs
Vital Signs
Temp Pulse Resp BP Pulse Ox
97.5 F 74 18 131/80 100
05/14/24 11:00 05/14/24 12:39 05/14/24 12:39 05/14/24 12:39 05/14/24 12:39
05/13/24 05/14/24 05/15/24
06:59 06:59 06:59
Actual Weight 68.084 kg 67.245 kg
05/14/24 06:40
05/14/24 06:40
Magnesium 2.0 mg/dl (1.6-2.3) 05/14/24 06:40
Digoxin 1.7 ng/ml (0.8-2.0) 05/12/24 20:25
LAB Results
05/12/24 05/13/24 05/13/24
20:25 02:40 08:07
Troponin I 0.043 H* 0.039 H* 0.046 H*
05/13/24
14:00
Troponin I 0.037 H*
Physical Exam
Constitutional: No acute distress
EENT: Anicteric
Cardiovascular: Rhythm/rate is irregular and Systolic murmur present
Respiratory: Respiratory effort normal and Lungs clear to auscul.
GI: Soft and Distention absent
Neuro/Psych: Alert
Data Reviewed
-
Date of Service: May 14, 2024
--- NOTE | 2024-05-14 16:03 | CM ---
Patient resident [facility]
referral entered in [facility]
PLAN: [facility], [place]
Report: [phone]

transportation forms on chart
--- NOTE | 2024-05-14 16:09 | PTOTSP ---
Addendum entered and electronically signed by ST Sarah 05/14/24 16:13:
Reflux precautions
Original Note:
Dysphagia Evaluation
Patient presents with signs concerning for mild oral/pharyngeal dysphagia. Signs concerning for aspiration observed with thin liquid wash via straw to clear oral cavity of solids.
Recommend:
1. Regular, Thin Liquids
2. Medications: 1 at a time with single sips of liquid and/or whole in puree
3. Strategies: upright to 90 degrees, full supervision, assistance as needed to follow strategies, small single sips, slow rate
4. Oral care 3x daily
5. Dysphagia therapy at the acute care level.
6. Consider video swallow study to objectively assess pharyngeal swallow.
[2024-05-14] MEDS: NORPRAMIN 100 MG PO (20:13)
[2024-05-14] MEDS: MELATONIN 3 MG PO (20:14)
[2024-05-14] MEDS: SINEQUAN 25 MG PO (20:14)
[2024-05-15 03:05] VITALS: BP 114/58
[2024-05-15] MEDS: SYNTHROID 25 MCG PO (05:11)
[2024-05-15 06:00] VITALS: BMI 27.4
[2024-05-15] MEDS: ZOLOFT 25 MG PO (08:01)
[2024-05-15] MEDS: ELIQUIS 5 MG PO (08:01)
[2024-05-15] MEDS: SENOKOT-S 1 TABLET PO (08:01)
[2024-05-15] MEDS: PEPCID 20 MG PO (08:01)
[2024-05-15] MEDS: LIPITOR 10 MG PO (08:01)
[2024-05-15] MEDS: KCL 20 MEQ PO (08:01)
[2024-05-15] MEDS: LASIX 80 MG PO (08:02)
[2024-05-15] MEDS: NAMENDA 5 MG PO (08:02)
[2024-05-15] MEDS: FLOMAX 0.4 MG PO (08:02)
[2024-05-15] MEDS: MIRALAX 17 GRAMS PO (08:05)
[2024-05-15 08:20] VITALS: BP 148/75
--- NOTE | 2024-05-15 08:39 | W.PN.HOSP.TC ---
Addendum entered and electronically signed by Paulina Roa MD 05/16/24 08:34:
total DC time 39 min
Addendum entered and electronically signed by Paulina Roa MD 05/15/24 12:29:
I personally performed a history and physical exam of the patient and discussed management with the resident. I reviewed the resident's note and agree with the documented findings and plan of care HPI/CC.
A/P:
# CP, resolved
# Nonischemic myocardial injury
# Permanent slow atrial fibrillation
Digoxin level elevated at 1.7 on admission, stopped further digoxin
Ok to resume Cardizem per card
Continue Eliquis for anticoagulation
TSH WNL at 1.95
# Severe aortic stenosis
Not a good candidate for valve replacement due to general deconditioning and dementia per card
# Chronic Heart failure with preserved ejection fraction
# Orthostasis
home dose Lasix to be decreased from 80 mg to 60 mg
Follow daily weight
Continue potassium supplement,
BMP outpatient in 1 week with result to PCP
Other medical conditions
# Dementia-continue Namenda
# Chronic dysphagia
Appreciate speech eval
continue modified diet soft and bite-size
Chest x-ray unrevealing
Consider GI eval outpatient
# Anxiety depression-continue sertraline and despiramine
# Hyperlipidemia-continue statin
# History of cystic pancreatic mass
outpatient MRI
# Nephrolithiasis
# Left renal lesion outpatient evaluation
# Gallstones
# Moderate L1 compression fracture
DVT prophylaxis-Eliquis
CODE STATUS-DNR
Original Note:
Today's Communication/Plan
-
Plan discharge today
Assessment / Plan
Assessment / Plan
Impression
Patient is not 88-year-old female, resident of [facility], history of dementia, history of permanent atrial fibrillation, presented with chest pain that had resolved by the time she came to ER, troponin I 0.04, EKG done that showed slow
atrial fibrillation with ventricular rate in 40s. No active ST-T wave abnormalities. Patient takes digoxin, diltiazem and Eliquis for atrial fibrillation. Digoxin levels raised to 1.7. Stopped digoxin, held diltiazem and continued Eliquis and
admitted for slow A-fib secondary to increased levels of digoxin.
Assessment/plan
#Permanent atrial fibrillation with onset of slow atrial fibrillation secondary to increased levels of digoxin
Digoxin discontinued
Patient's heart rate stable in 70s
Cardiology consult appreciated-resume diltiazem on discharge
Continue Eliquis for anticoagulation
TSH levels within normal limits
# Nonischemic myocardial injury
Troponin levels checked in the ER were 0.04, on trending the next level was 0.03
Since no active ischemic changes, it could be related to nonischemic myocardial injury
#Aortic stenosis
Patient has a harsh systolic murmur on the left sternal border
Aortic valve area 0.7 cm�, that suggests severe aortic stenosis
Not a good candidate for valve replacement due to general deconditioning and dementia as per cards
#Heart failure with preserved ejection fraction
Continue home dose of Lasix 80 mg daily on discharge
#Productive cough
Patient had productive cough with mucus production
Test for flu and COVID negative
Added Mucinex, Tessalon Perles, chest x-ray within normal limits
Speech evaluation done-suggestive IDDSI 6-soft and bite-size, thin liquids
# Other medical conditions
Dementia-continue Namenda
Anxiety depression-continue sertraline and despiramine
Hyperlipidemia-continue statin
History of cystic pancreatic mass-outpatient MRI
Nephrolithiasis
Left renal lesion outpatient evaluation
Gallstones
Moderate L1 compression fracture
DVT prophylaxis-Eliquis
CODE STATUS-DNR
Anticipated Discharge: Today
Subjective/Interval History
-
Date of Service: May 15, 2024
Patient coughing whitish sputum
Objective Data
-
Labs:
Laboratory Results
05/15/24
08:32
Sodium Pending
Potassium Pending
Chloride Pending
Carbon Dioxide Pending
BUN Pending
Creatinine Pending
Glucose Pending
Calcium Pending
Vital Signs:
Vital Signs
Temp Pulse Resp BP Pulse Ox
97.8 F 78 18 148/75 96
05/15/24 08:20 05/15/24 08:20 05/15/24 08:20 05/15/24 08:20 05/15/24 08:20
I&O
05/14/24 05/15/24 05/16/24
06:59 06:59 06:59
Intake Total 1020 / 1020 240 / 240
Balance 1020 / 1020 240 / 240
Review of Systems
-
All other systems: Reviewed and negative
Physical Exam
-
General: Well Developed, No Apparent Distress and Other (Sitting comfortably in chair)
HEENT: Normocephalic and Atraumatic
Respiratory: Chest Tubes (Harsh vesicular breathing with some rhonchi)
Cardiac: Irregular Rhythm and Murmur (Harsh systolic murmur)
GI: Soft, Nontender and Normal Bowel Sounds
Musculoskeletal: No Clubbing, No Cyanosis and No Edema
Neuro: Awake and Nonfocal/Grossly Intact
Psych: Apparent Dementia
[2024-05-15 08:42] LABS: Glucose - Point of Care 87 mg/dl (70-99)
[2024-05-15 10:48] LABS: Blood Urea Nitrogen 27 mg/dl (7-17); Carbon Dioxide 25 mmol/L (22-30); Chloride 101 mmol/L (98-107); Estimated Creatinine Clearance 36 ml/min; Glucose 101 mg/dl (70-99); Potassium 3.8 mmol/L (3.5-5.1); Sodium 136 mmol/L (135-145); eGFR 54.53
[2024-05-15 11:21] VITALS: BP 106/62
--- NOTE | 2024-05-15 11:34 | W.DCSUMMARY ---
Documented by User: Jaciel Garcia MD, Resident 05/15/24 16:49
Discharge Summary
Discharge Data
Date of Admission: 05/12/24
Date of Discharge: 05/15/24
-
Pending Results: No
Hospital Course
Discharging Physician :
Italia Roa Sandal Shahzadi
Disposition :
[facility]
Primary care physician :
Zack Palomo
Principal Discharge diagnosis :
Slow Atrial fibrillation with digoxin toxicity
Chronic Discharge diagnosis :
Dementia, Alzheimer's, CHF, A-fib
Hospital Course :
88-year-old female, presenting from senior living with past medical history of atrial fibrillation, heart failure and Alzheimer's disease. Patient presented with chest pain, troponin trending suggestive of nonischemic myocardial injury. Patient did
have heart rate down to 30s to 40s, digitalis levels were elevated, digoxin discontinued, diltiazem discontinued, and continued Eliquis for anticoagulation. Patient kept under observation and as the effect of digitalis weaned off patient's heart
rate stabilized in 70s. Cardiology consult appreciated: Plan on discharge to discontinue digoxin, continue home dose of diltiazem and Eliquis.
Patient did have cough, on evaluation COVID and flu negative, chest x-ray showed no active cardiopulmonary disease. Speech evaluation done, suggested IDDSI -6 soft and bite sized diet with thin liquids
Patient to follow-up on outpatient basis with GI for chronic dysphagia evaluation
Important imaging findings :
Chest Xray 05/14/2024
FINDINGS:
Frontal and lateral radiographs of the chest were obtained.
There is mild cardiomegaly.
There is no pulmonary edema
There are no acute mediastinal abnormalities.
There is a granuloma in the left lower lobe
There are no acute pleural or parenchymal abnormalities.
IMPRESSION:
No active cardiopulmonary disease.
Cardiomegaly without associated pulmonary edema
Discharge Plan
-
Patient Disposition: Jail/SNF
Discharge Diagnosis/Procedures: Slow Atrial fibrillation with digoxin toxicity
Condition: Fair
Diet: Other diet
Additional Diets: IDDSI-6,soft and bite sized, thin liquids
Activity: With assistance
Driving Restrictions: No driving
Bathing Restrictions: None
Blood Work: BMP in 1 week, result to PCP
Specialty Instructions: Weigh Daily- Call MD for wt gain/loss 3 lbs overnight/5 lbs in 1 week
Activity Restrictions/Additional Instructions:
Follow-up with GI outpatient for your chronic dysphagia evaluation
Referrals:
Nanette Torres NP [Specified Professional Personl] - 05/26/24 1:20 pm
Zack Palomo DO [Family Provider] - in less than 1 week
Additional Discharge Medication Instructions: Stop digoxin
Lasix dose reduced to 60 mg daily
Prescriptions:
New
furosemide [Lasix] 20 mg tablet
60 mg PO DAILY Qty: 90 0RF
Continued
atorvastatin 10 mg Tablet
10 mg PO DAILY
levothyroxine 25 mcg Tablet
25 mcg PO DAILY
bisacodyl 10 mg Suppository
10 mg SC DAILYPRN PRN (Reason: if no bm aftr mom)
Fleet Enema 19-7 gram/118 mL Enema
118 ml SC DAILYPRN PRN (Reason: if no bm aftr dulolcax)
desipramine 100 mg Tablet
100 mg PO HS
diltiazem HCl 120 mg Tablet Extended Release 24 Hr
120 mg PO DAILY
memantine 5 mg Tablet
5 mg PO BID
apixaban 5 mg Tablet
5 mg PO BID
tamsulosin 0.4 mg Capsule
0.4 mg PO DAILY Qty: 30 0RF
acetaminophen [Tylenol Extra Strength] 500 mg Tablet
1,000 mg PO TID MDD 3000mg Qty: 60 0RF
melatonin 3 mg Tablet
3 mg PO HS
sertraline 25 mg Tablet
25 mg PO DAILY
potassium chloride [Klor-Con M15] 15 mEq Tablet,Er Particles/Crystals
20 meq PO DAILY
cholecalciferol (vitamin D3) [Vitamin D3] 25 mcg (1,000 unit) Tablet
50 mcg PO DAILY
lidocaine 4 % adhesive patch,medicated
2 patch topical DAILYPRN PRN (Reason: b/l calf)
Rx Instructions:
Lower leg calf pain, 1 patch each leg as necessary.
doxepin 25 mg Capsule
25 mg PO HS
calcium carbonate [Calcium 600] 600 mg calcium (1,500 mg) Tablet
600 mg PO BID
famotidine 20 mg Tablet
20 mg PO DAILY
magnesium hydroxide [Milk of Magnesia] 400 mg/5 mL Suspension
30 ml PO [id number] PRN (Reason: no bm 3 days)
Discontinued
digoxin 125 mcg (0.125 mg) Tablet
125 mcg PO DAILY
furosemide 80 mg Tablet
80 mg PO DAILY Qty: 60 0RF
Discharge Orders:
Discharge Patient (As Directed); Ordered 05/15/24
Ordered By: Jaciel Garcia
Discharge Date and Time
Discharge Date/Time: 05/15/24 16:37
Print Language: RUSSIAN

Documented by User: Paulina Roa MD 05/16/24 08:33
Discharge Summary
Discharge Data
Date of Admission: 05/12/24
Date of Discharge: 05/15/24
Hospital Course
Discharging Physician :
Italia Roa Sandal Shahzadi
Disposition :
[facility]
Primary care physician :
[place],Zack Brayden
Principal Discharge diagnosis :
Slow Atrial fibrillation with digoxin toxicity
Chronic Discharge diagnosis :
Dementia, Alzheimer's, CHF, A-fib
Hospital Course :
88-year-old female, from senior living with past medical history of atrial fibrillation, heart failure and Alzheimer's disease. Patient presented with chest pain. However, her troponin trending suggested nonischemic myocardial injury. Patient was
noted to be bradycardic (heart rate down to 30s to 40s) with digitalis level being elevated. Her digoxin was discontinued and diltiazem temporarily held. She was continued with Eliquis for anticoagulation. Her heart rate improved to the 70s and per
Cardiology, her home dose diltiazem was resumed.
It was also noted that patient had a mild cough. Her COVID and flu were negative, and chest x-ray showed no active cardiopulmonary disease. Speech evaluation suggested IDDSI -6 soft and bite sized diet with thin liquids (which she has been on).
Patient can follow-up up with outpatient GI for further eval.
Important imaging findings :
Chest Xray 05/14/2024
FINDINGS:
Frontal and lateral radiographs of the chest were obtained.
There is mild cardiomegaly.
There is no pulmonary edema
There are no acute mediastinal abnormalities.
There is a granuloma in the left lower lobe
There are no acute pleural or parenchymal abnormalities.
IMPRESSION:
No active cardiopulmonary disease.
Cardiomegaly without associated pulmonary edema
Discharge Plan
-
Patient Disposition: Jail/SNF
Discharge Diagnosis/Procedures: Slow Atrial fibrillation with digoxin toxicity
Condition: Fair
Diet: Other diet
Additional Diets: IDDSI-6,soft and bite sized, thin liquids
Activity: With assistance
Driving Restrictions: No driving
Bathing Restrictions: None
Blood Work: BMP in 1 week, result to PCP
Specialty Instructions: Weigh Daily- Call MD for wt gain/loss 3 lbs overnight/5 lbs in 1 week
Activity Restrictions/Additional Instructions:
Follow-up with GI outpatient for your chronic dysphagia evaluation
Referrals:
Nanette Torres NP [Specified Professional Personl] - 05/26/24 1:20 pm
Zack Palomo DO [Family Provider] - in less than 1 week
Additional Discharge Medication Instructions: Stop digoxin
Lasix dose reduced to 60 mg daily
Prescriptions:
New
furosemide [Lasix] 20 mg tablet
60 mg PO DAILY Qty: 90 0RF
Continued
atorvastatin 10 mg Tablet
10 mg PO DAILY
levothyroxine 25 mcg Tablet
25 mcg PO DAILY
bisacodyl 10 mg Suppository
10 mg SC DAILYPRN PRN (Reason: if no bm aftr mom)
Fleet Enema 19-7 gram/118 mL Enema
118 ml SC DAILYPRN PRN (Reason: if no bm aftr dulolcax)
desipramine 100 mg Tablet
100 mg PO HS
diltiazem HCl 120 mg Tablet Extended Release 24 Hr
120 mg PO DAILY
memantine 5 mg Tablet
5 mg PO BID
apixaban 5 mg Tablet
5 mg PO BID
tamsulosin 0.4 mg Capsule
0.4 mg PO DAILY Qty: 30 0RF
acetaminophen [Tylenol Extra Strength] 500 mg Tablet
1,000 mg PO TID MDD 3000mg Qty: 60 0RF
melatonin 3 mg Tablet
3 mg PO HS
sertraline 25 mg Tablet
25 mg PO DAILY
potassium chloride [Klor-Con M15] 15 mEq Tablet,Er Particles/Crystals
20 meq PO DAILY
cholecalciferol (vitamin D3) [Vitamin D3] 25 mcg (1,000 unit) Tablet
50 mcg PO DAILY
lidocaine 4 % adhesive patch,medicated
2 patch topical DAILYPRN PRN (Reason: b/l calf)
Rx Instructions:
Lower leg calf pain, 1 patch each leg as necessary.
doxepin 25 mg Capsule
25 mg PO HS
calcium carbonate [Calcium 600] 600 mg calcium (1,500 mg) Tablet
600 mg PO BID
famotidine 20 mg Tablet
20 mg PO DAILY
magnesium hydroxide [Milk of Magnesia] 400 mg/5 mL Suspension
30 ml PO [id number] PRN (Reason: no bm 3 days)
Discontinued
digoxin 125 mcg (0.125 mg) Tablet
125 mcg PO DAILY
furosemide 80 mg Tablet
80 mg PO DAILY Qty: 60 0RF
Discharge Orders:
Discharge Patient (As Directed); Ordered 05/15/24
Ordered By: Jaciel Garcia
Discharge Date and Time
Discharge Date/Time: 05/15/24 16:37
Print Language: RUSSIAN
[2024-05-15] MEDS: MILK OF MAGNESIA 30 ML PO (11:46)
[2024-05-15 12:17] LABS: Glucose - Point of Care 237 mg/dl (70-99)
--- NOTE | 2024-05-15 12:33 | CM ---
Patient chart reviewed.
IMM reviewed with son Augustin-verbalize understanding
Spoke with Jena at [facility] regarding discharge
PLAN: [facility]
Report: [phone]

transportation forms on chart-time TBD
[2024-05-15] MEDS: DULCOLAX 10 MG RECTAL (12:54)
[2024-05-15 15:34] VITALS: BP 114/59
--- NOTE | 2024-05-15 15:53 | PTCARENOTE ---
Patient discharged back to [facility], report given by this RN to Elyssa at facility. Patient's IV and tele pack removed by this RN prior to discharge, vitals completed by tech. Patient changed prior to transport, belongings
gathered in room and handed to transport team.
== END 2024-05-15 16:37 | DRG 292 ==
LOC: 2 NORTH 22:38
PROVIDERS: Emergency Medicine; Registered Nurse; ADMITTING PHYSICIAN Internal Medicine; ATTENDING PHYSICIAN Internal Medicine; CONSULT PHYSICIAN Student in an Organized Health Care Education/Training Program; EMERGENCY PHYSICIAN Emergency Medicine; FAMILY PHYSICIAN Internal Medicine
DX: I13.0 Hypertensive heart and chronic kidney disease with heart failure and stage 1 through stage 4 chronic kidney disease, or unspecified chronic kidney disease (principal); F02.811 Dementia in other diseases classified elsewhere, unspecified severity, with agitation; F02.83 Dementia in other diseases classified elsewhere, unspecified severity, with mood disturbance; I50.32 Chronic diastolic (congestive) heart failure; F02.818 Dementia in other diseases classified elsewhere, unspecified severity, with other behavioral disturbance; F02.84 Dementia in other diseases classified elsewhere, unspecified severity, with anxiety; I48.21 Permanent atrial fibrillation; I48.91 Unspecified atrial fibrillation; I5A Non-ischemic myocardial injury (non-traumatic); E78.00 Pure hypercholesterolemia, unspecified; Z66 Do not resuscitate; N20.0 Calculus of kidney; G30.9 Alzheimer's disease, unspecified; N18.32 Chronic kidney disease, stage 3b; Z11.52 Encounter for screening for COVID-19; Z59.89 Other problems related to housing and economic circumstances
CPT/HCPCS: 71046; 80048; 80053; 80162; 82962; 83735; 84443; 84484; 85025; 87070; 87502; 87811; 92526; 92610; 93005; 99291

== ENCOUNTER 2024-07-29 15:13 | Emergency (ER) | payer MEDICARE, OTHER, SELFPAY ==
[2024-07-29 15:23] VITALS: BP 117/92
--- NOTE | 2024-07-29 15:29 | ED.GENMED ---
History of Present Illness
General
Chief Complaint: Chest Pain
Time Seen by Provider: 07/29/24 15:29
History of Present Illness
History of Present Illness:
TIME OF INITIAL ENCOUNTER: 3:30 PM
HPI: Patient came in by ambulance. The reason for visit is somewhat unclear. The patient has dementia and is a limited historian. There reportedly was some concern for chest pain and a headache. The patient does say that she has intermittently
had some left-sided headache but is not consistent with this. She is not sure why she is here.
EXAM:
GENERAL: Appears in no distress
HEENT: Moist oral mucosa
CARDIOVASCULAR: Regular rate with irregular
PULMONARY: No respiratory distress, breathing is nonlabored, equal and clear breath sounds
ABDOMEN: Soft and nontender with no peritoneal signs
NEUROLOGIC: The patient has evidence of dementia, not oriented to month or place, strength is equal in all extremities
EXTREMITIES: Moves all extremities equally, no tenderness, no edema
PYSCHIATRIC: Very limited historian, poor insight and judgment
NUMBER AND COMPLEXITY OF PROBLEMS ADDRESSED AT THE ENCOUNTER
� Chronic conditions affecting care: A-fib, CHF, hypothyroidism, anxiety/depression
� Acute Exacerbation and/or Progression of Chronic Illness: This is an acute problem
� Differential Diagnosis includes: Nonspecific headache, tension headache, intracranial pathology
AMOUNT AND/OR COMPLEXITY OF DATA TO BE REVIEWED AND ANALYZED
� I performed an independent evaluation of and my interpretation is:
EKG: A-fib 82, left axis deviation, poor R wave progression, LVH
CT:
X-rays:
Laboratory Studies: White count normal, hemoglobin 11.5, creatinine 1.2, troponin 0.018 (lower than May 2024)
Other:
� Review of other/old records: The patient was admitted with slow A-fib with dig toxicity 2 months ago
� Clinical information was obtained by an independent historian: I called [facility] twice to try to get a story as to why they sent her here, despite calling twice I initially talked to an substation operator automatic who transferred me to her
floor but nobody answered
� Prescriptions/Medications Considered but not given:
� Further testing considered but not performed:
RISK OF COMPLICATIONS AND/OR MORBIDITY OR MORTALITY OF PATIENT MANAGEMENT
� Social determinants of health affecting care: Lives at [facility]
� Discussion with other providers: Attempted to call [facility] CT brain shows no acute abnormality
� Escalation of care including admission/observation vs risk of discharge considered: I attempted to obtain better history however no answer from [facility] at their nursing station. Will obtain CT imaging as patient is on
anticoagulation with dementia and has advanced age.
ANY OTHER UPDATES:
6:15 PM: I reassessed patient. She appears comfortable. Planning discharge back to [facility].
Past History
Past History
ED Past Medical History: Arrthythmia, CHF, Psychiatric and Other (Dementia)
ED Past Surgical History: Other
Social History
Tobacco: Non-smoker
Alcohol: None
Drug: None
Living: [facility]
Phy Exam
Physical Exam
Physical Exam:
See HPI
Scores
Heart Score for Chest Pain Patients
STEMI patient?: Not applicable
Course
Orders/Labs/Results
Orders:
Orders
07/29/24 15:24
Electrocardiogram (*1) Urgent
Reason for Study: Chest Pain
EKG- Treatment ONCE
07/29/24 15:37
CT Head W/o Iv Contrast Urgent
Comment:
Reason For Exam: ROSA dementia on Eliquis
07/29/24 15:40
Basic Metabolic Panel Urgent
Complete Blood Count/With Diff Urgent
Troponin I Urgent
Abnormal Lab Results
07/29/24
15:40
RBC 3.74 L 10^6/uL
(4.20-5.40)
Hgb 11.5 L g/dL
(12.0-16.0)
Hct 35.1 L %
(37.0-47.0)
MCHC 32.8 L g/dL
(33.0-37.0)
RDW 15.4 H %
(11.5-14.5)
Absolute Monos (auto) 1.0 H 10^3/uL
(0.1-0.6)
Monocytes % 12.5 H %
(1.7-9.3)
Chloride 108 H mmol/L
(98-107)
BUN 36 H mg/dl
(7-17)
Creatinine 1.2 H mg/dL
(0.6-1.0)
07/29/24 15:40
07/29/24 15:40
Vital Signs
Initial and Last Documented VS:
Initial Vital Signs
Temp Pulse Resp BP Pulse Ox
36.9 C 89 18 117/92 98
07/29/24 15:23 07/29/24 15:23 07/29/24 15:23 07/29/24 15:23 07/29/24 15:23
Last Documented Vital Signs
Temp Pulse Resp BP Pulse Ox
36.9 C 91 18 118/65 99
07/29/24 15:23 07/29/24 17:15 07/29/24 17:15 07/29/24 17:00 07/29/24 17:15
*Critical Care Note
Total Time (30-74mins, 75-104mins- exclusive of procedures): Not Applicable
ED Attending Note
-
Portions of this chart may have been created with voice recognition software.� Occasional wrong word or��sound alike� substitutions may have occurred due to the inherent limitations of voice recognition software.
Discharge Plan
Departure
Prescriptions:
No Action
atorvastatin 10 mg Tablet
10 mg PO DAILY
levothyroxine 25 mcg Tablet
25 mcg PO DAILY
bisacodyl 10 mg Suppository
10 mg FL DAILYPRN PRN (Reason: if no bm aftr mom)
Fleet Enema 19-7 gram/118 mL Enema
118 ml FL DAILYPRN PRN (Reason: if no bm aftr dulolcax)
desipramine 100 mg Tablet
100 mg PO HS
diltiazem HCl 120 mg Tablet Extended Release 24 Hr
120 mg PO DAILY
memantine 5 mg Tablet
5 mg PO BID
apixaban 5 mg Tablet
5 mg PO BID
tamsulosin 0.4 mg Capsule
0.4 mg PO DAILY Qty: 30 0RF
acetaminophen [Tylenol Extra Strength] 500 mg Tablet
1,000 mg PO TID MDD 3000mg Qty: 60 0RF
melatonin 3 mg Tablet
3 mg PO HS
sertraline 25 mg Tablet
25 mg PO DAILY
potassium chloride [Klor-Con M15] 15 mEq Tablet,Er Particles/Crystals
20 meq PO DAILY
cholecalciferol (vitamin D3) [Vitamin D3] 25 mcg (1,000 unit) Tablet
50 mcg PO DAILY
lidocaine 4 % adhesive patch,medicated
2 patch topical DAILYPRN PRN (Reason: b/l calf)
Rx Instructions:
Lower leg calf pain, 1 patch each leg as necessary.
doxepin 25 mg Capsule
25 mg PO HS
calcium carbonate [Calcium 600] 600 mg calcium (1,500 mg) Tablet
600 mg PO BID
famotidine 20 mg Tablet
20 mg PO DAILY
magnesium hydroxide [Milk of Magnesia] 400 mg/5 mL Suspension
30 ml PO [id number] PRN (Reason: no bm 3 days)
furosemide [Lasix] 20 mg tablet
60 mg PO DAILY Qty: 90 0RF
Referrals:
Zack Palomo DO [Family Provider] -
Interventions
Interventions:
*Risk Screen - Suicide Last Done: 07/29/24 15:23
*General Assessment Last Done: 07/29/24 15:23
*Neglect/Abuse Screening Last Done: 07/29/24 15:23
*ED COVID-19 Vaccine History Last Done: 07/29/24 15:23
ED- Cardiac Assessment Last Done: 07/29/24 16:40
Discharge Date and Time
Print Language: KHMER
[2024-07-29 15:54] LABS: % Basophils 1.3 % (0-2); % Immature Granulocytes 0.3 % (0-0.5); % Lymphocytes 23.2 % (20.5-51.1); % Monocytes 12.5 % (1.7-9.3); % Neutrophils 62.7 % (42.2-75.2); Absolute Basophils 0.1 10^3/uL (0-0.2); Absolute Lymphocytes 1.8 10^3/uL (1.2-3.4); Absolute Neutrophils 4.8 10^3/uL (1.4-6.5); Hematocrit 35.1 % (37.0-47.0); Hemoglobin 11.5 g/dL (12.0-16.0); Mean Corp Hgb Conc. 32.8 g/dL (33.0-37.0); Mean Corpuscular Hgb 30.7 pg (27.0-31.0); Mean Corpuscular Volume 93.9 fL (81.0-99.0); Mean Platelet Volume 10.4 fL (7.4-10.4); Nucleated Red Blood Cells % 0 %; Platelet Count 325 10^3/uL (130-400); Red Blood Cell Count 3.74 10^6/uL (4.20-5.40); Red Cell Dist. Width 15.4 % (11.5-14.5); White Blood Cell Count 7.7 10^3/uL (4.8-10.8)
[2024-07-29 16:23] LABS: Blood Urea Nitrogen 36 mg/dl (7-17); Calcium 9.1 mg/dl (8.4-10.2); Carbon Dioxide 26 mmol/L (22-30); Chloride 108 mmol/L (98-107); Glucose 86 mg/dl (70-99); Sodium 141 mmol/L (135-145); eGFR 43.81
[2024-07-29 16:26] LABS: Troponin I 0.018 ng/ml
[2024-07-29 17:00] VITALS: BP 118/65
[2024-07-29 18:02] VITALS: BP 128/73
[2024-07-29 20:00] VITALS: BP 119/69
== END 2024-07-29 21:22 | disposition home or self-care (01) ==
LOC: EMR 15:13
PROVIDERS: Emergency Medicine; EMERGENCY PHYSICIAN Emergency Medicine; FAMILY PHYSICIAN Internal Medicine
DX: R51.9 Headache, unspecified (principal); F03.90 Unspecified dementia, unspecified severity, without behavioral disturbance, psychotic disturbance, mood disturbance, and anxiety; I50.9 Heart failure, unspecified; Z79.01 Long term (current) use of anticoagulants
CPT/HCPCS: 99284; 70450; 80048; 84484; 85025; 93005

== ENCOUNTER 2025-02-06 12:08 | Emergency (ER) | payer MEDICARE, OTHER, SELFPAY ==
[2025-02-06 12:12] VITALS: BP 121/100
--- NOTE | 2025-02-06 12:38 | ED.GENMED ---
History of Present Illness
General
Chief Complaint: Wound Check/Suture Removal
Time Seen by Provider: 02/06/25 12:36
History of Present Illness
History of Present Illness:
FOCUSED PAST MEDICAL HISTORY
- Dementia, A-fib on Eliquis
REVIEW OF OLD RECORDS
- I reviewed records, the patient was seen here with a headache in July of this year at that time had a CT head that showed no acute abnormality
Note:
CHIEF COMPLAINT(S)
Laceration on the back of the head.
HISTORY OF PRESENT ILLNESS
The patient is an 89-year-old female who presented with a laceration on the back of her head. She does not recall falling or sustaining any injury, stating, 'Not that I know.' The patient is unsure why she is in the emergency department and
mentioned, 'They said something about a cut on the back of your head.'
Upon examination, the laceration was identified at the back of the head, and there is a concern that it may need closure. The patient arrived with a Matos catheter, and her urine appears slightly cloudy yellow. She is currently on Apixaban.
PHYSICAL EXAM
-General: Appears in no distress
-Head: There is a 2x2 cm irregular skin defect with 1 suture and 1 staple noted; no evidence of infection
-HEENT: Moist oral mucosa
-Abdomen: Soft and nontender with no peritoneal signs
-Neurologic: The patient has evidence of dementia, not oriented to month or place, strength is equal in all extremities
-Extremities: Moves all extremities equally, no tenderness, no edema
-Psychiatric: Very limited historian, poor insight and judgment
PROBLEM LIST
Acute Problems:
1. Laceration on the back of the head
CHRONIC MEDICAL CONDITIONS SIGNIFICANTLY AFFECTING CARE
1. The patient is on Apixaban.
PLAN
1. Evaluate the need for closure of the laceration on the back of the head.
2. Continue monitoring the Matos catheter drainage; consider urinalysis if urinary tract infection is suspected.
3. Possible consultation or transfer to [facility] for further management, if necessary.
DIFFERENTIAL DIAGNOSIS
The Differential Diagnosis includes, in no particular order and is not limited to:
1. Traumatic laceration due to fall
2. Anticoagulant-related bleeding
3. Urinary tract infection (based on catheter drainage)
4. Subdural hematoma
5. Intracranial hemorrhage
6. Skin tear related to age-related skin changes
7. Dementia or confusion causing inability to recall events
SUMMARY OF ENCOUNTER
The patient, an 89-year-old female, was seen in the emergency department for a laceration on the back of her head. She was unaware of how the injury occurred; further investigation revealed she had experienced a fall approximately one month ago.
Upon evaluation, one proline stitch and one staple were removed as they were not holding any tissue together. Due to the thinness of her scalp skin, only two stitches were placed to more closely approximate the wound.
MANAGEMENT OF THE PATIENTS CARE WAS DISCUSSED WITH
I contacted [facility] to gather information regarding the initial repair of the laceration. The location of the initial repair remains unknown but potential facilities include [facility] or [facility]. [facility] confirmed the fall occurred about one
month ago and is not a recent event.
PLAN
Evaluate the need for further closure interventions as necessary. Monitor the integrity of newly placed stitches, considering her fragile scalp. If recurring issues arise or if the wound does not heal properly, reconsider transfer to a specialized
facility for advanced management.
MEDICAL DECISION MAKING
Number and Complexity of Problems Addressed: Chronic conditions affecting care. Differential Diagnosis includes: traumatic laceration due to fall, anticoagulant-related bleeding, urinary tract infection, subdural hematoma, intracranial hemorrhage,
skin tear related to age-related changes, dementia or confusion causing inability to recall events, delirium secondary to infection, hyponatremia or other metabolic imbalances, and syncope leading to fall and head injury.
Data:
Category 3
Discussion of management with [facility] to obtain background information regarding the previous repair and the fall incident.
DIAGNOSIS
Laceration of scalp, sequela (ICD-10: S01.02XS)
Past History
Past History
ED Past Medical History: Arrthythmia, CHF, Psychiatric and Other (Dementia)
ED Past Surgical History: Other
Social History
Tobacco: Non-smoker
Alcohol: None
Drug: None
Living: [facility]
Phy Exam
Physical Exam
Physical Exam:
See HPI
Course
Vital Signs
Initial and Last Documented VS:
Initial Vital Signs
Temp Pulse Resp BP Pulse Ox
37.0 C 93 18 121/100 98
02/06/25 12:12 02/06/25 12:12 02/06/25 12:12 02/06/25 12:12 02/06/25 12:12
Last Documented Vital Signs
Temp Pulse Resp BP Pulse Ox
37.0 C 94 18 121/100 99
02/06/25 12:12 02/06/25 13:02 02/06/25 12:12 02/06/25 12:12 02/06/25 13:00
Procedures
Laceration Closure
Posterior Scalp:
Size of Wound in cm: 2
Description of Wound Edges: ragged
Preparation: cleaned with saline
Anesthesia: 1% Lidocaine with epi
Revision/Debridement: minor revision
Wound exploration: all visible FB removed
Type of Closure: single layer closure
Skin Closure Material: 4-0 prolene
Number of sutures: 2
*Pulse Oximetry
SaO2: 99
Oxygen Mode of Delivery: Room air
Patient hypoxic: no
*Critical Care Note
Total Time (30-74mins, 75-104mins- exclusive of procedures): Not Applicable
ED Attending Note
-
Portions of this chart may have been created with voice recognition software.� Occasional wrong word or��sound alike� substitutions may have occurred due to the inherent limitations of voice recognition software.
Discharge Plan
Departure
Patient Disposition: Home (Routine Discharge)
Date of Disposition: 02/06/25
Time of Disposition: 13:05
Patient with high blood pressure during this ER visit?: Yes
Discharge Problem:
Laceration of scalp
Instructions: Stitches and rsoio, BLOOD PRESSURE
Prescriptions:
No Action
atorvastatin 10 mg Tablet
10 mg PO DAILY
levothyroxine 25 mcg Tablet
25 mcg PO DAILY
bisacodyl 10 mg Suppository
10 mg [place] DAILYPRN PRN (Reason: if no bm aftr mom)
Fleet Enema 19-7 gram/118 mL Enema
118 ml [place] DAILYPRN PRN (Reason: if no bm aftr dulolcax)
desipramine 100 mg Tablet
100 mg PO HS
diltiazem HCl 120 mg Tablet Extended Release 24 Hr
120 mg PO DAILY
memantine 5 mg Tablet
5 mg PO BID
apixaban 5 mg Tablet
5 mg PO BID
tamsulosin 0.4 mg Capsule
0.4 mg PO DAILY Qty: 30 0RF
acetaminophen [Tylenol Extra Strength] 500 mg Tablet
1,000 mg PO TID MDD 3000mg Qty: 60 0RF
melatonin 3 mg Tablet
3 mg PO HS
sertraline 25 mg Tablet
25 mg PO DAILY
potassium chloride [Klor-Con M15] 15 mEq Tablet,Er Particles/Crystals
20 meq PO DAILY
cholecalciferol (vitamin D3) [Vitamin D3] 25 mcg (1,000 unit) Tablet
50 mcg PO DAILY
lidocaine 4 % adhesive patch,medicated
2 patch topical DAILYPRN PRN (Reason: b/l calf)
Rx Instructions:
Lower leg calf pain, 1 patch each leg as necessary.
doxepin 25 mg Capsule
25 mg PO HS
calcium carbonate [Calcium 600] 600 mg calcium (1,500 mg) Tablet
600 mg PO BID
famotidine 20 mg Tablet
20 mg PO DAILY
magnesium hydroxide [Milk of Magnesia] 400 mg/5 mL Suspension
30 ml PO [id number] PRN (Reason: no bm 3 days)
furosemide [Lasix] 20 mg tablet
60 mg PO DAILY Qty: 90 0RF
Referrals:
Valencia Mon MD [Family Provider]
Activity Restrictions/Additional Instructions:
I recommended these 2 new stitches stay in for the next 7 to 10 days and then they should be removed by a nurse at [facility]. Return here if worse or other concerns.
Interventions
Interventions:
*Risk Screen - Suicide Last Done: 02/06/25 12:14
*General Assessment Last Done: 02/06/25 12:14
*Neglect/Abuse Screening Last Done: 02/06/25 12:14
*ED- Fall Risk Assessment Last Done: 02/06/25 12:14
*ED COVID-19 Vaccine History Last Done: 02/06/25 12:14
*ED Influenza Vaccine History Last Done: 02/06/25 12:14
ED-Skin Assessment Last Done: 02/06/25 12:21
Discharge Date and Time
Print Language: WELSH
[2025-02-06 14:00] VITALS: BP 117/79
== END 2025-02-06 15:05 | disposition home or self-care (01) ==
LOC: EMR 12:08
PROVIDERS: EMERGENCY PHYSICIAN Emergency Medicine; FAMILY PHYSICIAN Internal Medicine
DX: S01.01XA Laceration without foreign body of scalp, initial encounter (principal); X58.XXXA Exposure to other specified factors, initial encounter; I50.9 Heart failure, unspecified; F03.90 Unspecified dementia, unspecified severity, without behavioral disturbance, psychotic disturbance, mood disturbance, and anxiety; I48.91 Unspecified atrial fibrillation; Z79.01 Long term (current) use of anticoagulants
CPT/HCPCS: 99282; 12001